=== PATIENT | female | born 1950 | race American Indian/Alaskan Native ===

== ENCOUNTER 2017-02-04 03:34 | Inpatient (IN) | payer MEDICARE ==
[2017-02-04] MEDS ORDERED: LASIX IV ONE (03:48)
[2017-02-04] MEDS ORDERED: DUONEB 0.5 MG-3 MG/3 ML SOLN IH ONE (03:49)
[2017-02-04] MEDS ORDERED: TRIDIL DRIP 50MG/250ML 50 MG/250 ML BOTTLE IV SCH (04:00)
[2017-02-04 04:20] LABS: Basophils % (Auto) 0.4 % (0.0-1.8); Eosinophils % (Auto) 1.4 % (0.0-4.3); Hematocrit 46.5 % (30.3-42.9); Hemoglobin 15.2 gm/dl (10.1-14.3); Mean Corpuscular HGB Conc 33 % (30-34); Mean Corpuscular Hemoglobin 27 pg (28-32); Mean Corpuscular Volume 83 fl (79-97); Red Blood Count 5.61 M/mm3 (3.65-5.03); Red Cell Distribution Width 15.2 % (13.2-15.2); White Blood Count 10.7 K/mm3 (4.5-11.0)
[2017-02-04 04:32] LABS: INR 1.03 (0.87-1.13); Partial Thromboplastin Time 31.9 Sec. (24.2-36.6)
[2017-02-04 04:34] LABS: Creatine Kinase MB 2.2 ng/mL (0.0-4.0)
[2017-02-04 04:35] LABS: Alanine Aminotransferase 16 units/L (7-56); Albumin 3.8 g/dL (3.9-5); Albumin/Globulin Ratio 1.1 %; Alkaline Phosphatase 171 units/L (35-129); Anion Gap 24 mmol/L; BUN/Creatinine Ratio 13.63; Bilirubin,Total 0.3 mg/dL (0.1-1.2); Blood Urea Nitrogen 15 mg/dL (7-17); Calcium 9.1 mg/dL (8.4-10.2); Carbon Dioxide 19 mmol/L (22-30); Chloride 100.1 mmol/L (98-107); Creatine Kinase 44 units/L (30-135); Glucose 470 mg/dL (65-100); Potassium 4.1 mmol/L (3.6-5.0); Sodium 139 mmol/L (137-145); Total Protein 7.3 g/dL (6.3-8.2)
--- NOTE | 2017-02-04 04:51 | Emergency Department Report ---
ED Shortness of Breath HPI - General Chief Complaint: Dyspnea/Respdistress Stated Complaint: DIFFICULTY IN BREATHING Time Seen by Provider: 02/04/17 03:48 Source: EMS, old records reviewed (patient had a recent admission with discharge on January 21) Mode of arrival: Stretcher Limitations: Altered Mental Status - History of Present Illness Initial Comments: 66-year-old female with a past medical history of asthma, COPD, CHF, diabetes, and hypertension presents to the hospital with acute respiratory distress. Difficulty in breathing began tonight. Patient brought in by EMS and is unable to speak and provide history of present illness. EMS reports that patient was hypoxic in the 60s at the scene with some improvement with a nebulized albuterol treatment and supplemental oxygen. Upon arrival BiPAP was initiated immediately. Patient is lethargic but is able to follow some commands. No further history of present illness develop at this time. - Related Data Home Medications Medication Instructions Recorded Confirmed Last Taken Insulin Aspart Prot/Aspart 50 units SQ TID 01/18/17 01/18/17 Unknown [Novolog Mix 70/30] Metformin HCl [Glucophage] 1,000 mg PO BID 01/18/17 01/18/17 Unknown Simvastatin [Zocor TAB] 40 mg PO QHS 01/18/17 01/18/17 01/17/17 cloNIDine [Catapres] 0.2 mg PO TID 01/18/17 01/18/17 Unknown Previous Rx's Medication Instructions Recorded Last Taken Type Furosemide [Lasix TAB] 40 mg PO QDAY #30 tablet 01/13/17 Unknown Rx Lisinopril [Zestril TAB] 2.5 mg PO QDAY #30 tablet 01/13/17 Unknown Rx Carvedilol [Coreg] 12.5 mg PO BID #60 tablet 01/21/17 Unknown Rx Potassium Chloride 10 meq PO QDAY #30 capsule.er 01/21/17 Unknown Rx guaiFENesin ER [Mucinex ER] 600 mg PO BID #20 tablet 01/21/17 Unknown Rx Allergies Allergy/AdvReac Type Severity Reaction Status Date / Time No Known Allergies Allergy Verified 01/10/17 21:41 ED Review of Systems ROS: Stated complaint: DIFFICULTY IN BREATHING Other details as noted in HPI Comment: Unobtainable due to pts medical conditions (ams, resp distress, unable to speak) ED Past Medical Hx - Past Medical History Previous Medical History?: Yes Hx Hypertension: Yes Hx Congestive Heart Failure: Yes Hx Diabetes: Yes Hx Asthma: Yes Hx COPD: Yes Additional medical history: chronic back pain - Social History Smoking Status: Current Every Day Smoker - Medications Home Medications: Home Medications Medication Instructions Recorded Confirmed Last Taken Type Furosemide [Lasix TAB] 40 mg PO QDAY #30 tablet 01/13/17 01/18/17 Unknown Rx Lisinopril [Zestril TAB] 2.5 mg PO QDAY #30 tablet 01/13/17 01/18/17 Unknown Rx Insulin Aspart Prot/Aspart 50 units SQ TID 01/18/17 01/18/17 Unknown History [Novolog Mix 70/30] Metformin HCl [Glucophage] 1,000 mg PO BID 01/18/17 01/18/17 Unknown History Simvastatin [Zocor TAB] 40 mg PO QHS 01/18/17 01/18/17 01/17/17 History cloNIDine [Catapres] 0.2 mg PO TID 01/18/17 01/18/17 Unknown History Carvedilol [Coreg] 12.5 mg PO BID #60 tablet 01/21/17 Unknown Rx Potassium Chloride 10 meq PO QDAY #30 capsule.er 01/21/17 Unknown Rx guaiFENesin ER [Mucinex ER] 600 mg PO BID #20 tablet 01/21/17 Unknown Rx ED Physical Exam - General Limitations: Altered Mental Status - Other Other exam information: General: Limited by altered mental status Head exam: Atraumatic Eyes exam: Normal appearance ENT: Moist mucous membrane Neck exam: Normal inspection Respiratory exam: Bilateral rhonchi and radial, tachypnea, accessory muscle use Cardiovascular: Regular rate and rhythm Abdomen: Soft, nondistended, and nontender, with normal bowel sounds, no rebound, or guarding Extremity: Full range of motion, significant lower extremity edema 2+ pitting Back: Normal Inspection, full range of motion, no tenderness Neurologic: Lethargic, spontaneous movement of all extremities, sensation grossly intact ED Course Vital Signs 02/04/17 02/04/17 02/04/17 03:42 03:47 03:50 Pulse Rate 118 H 110 H 112 H Pulse Rate [ Anterior Bilateral] Respiratory 30 H 34 H 41 H Rate Respiratory Rate [Anterior Bilateral] Blood Pressure 162/78 184/111 Blood Pressure [Left] O2 Sat by Pulse 86 91 89 Oximetry 02/04/17 02/04/17 02/04/17 03:59 04:00 04:07 Pulse Rate 102 H 98 H Pulse Rate [ 96 H Anterior Bilateral] Respiratory 35 H 28 H Rate Respiratory 28 H Rate [Anterior Bilateral] Blood Pressure 184/111 Blood Pressure [Left] O2 Sat by Pulse 91 91 Oximetry 02/04/17 02/04/17 02/04/17 04:10 04:13 04:20 Pulse Rate 97 H 99 H Pulse Rate [ 94 H Anterior Bilateral] Respiratory 28 H 24 Rate Respiratory 27 H Rate [Anterior Bilateral] Blood Pressure 169/93 193/72 Blood Pressure [Left] O2 Sat by Pulse 92 93 Oximetry 02/04/17 02/04/17 02/04/17 04:22 04:25 04:30 Pulse Rate 99 H 99 H Pulse Rate [ Anterior Bilateral] Respiratory 26 H 25 H Rate Respiratory Rate [Anterior Bilateral] Blood Pressure 193/72 Blood Pressure 193/72 [Left] O2 Sat by Pulse 93 93 90 Oximetry 02/04/17 02/04/17 04:40 05:04 Pulse Rate 99 H Pulse Rate [ Anterior Bilateral] Respiratory 21 Rate Respiratory Rate [Anterior Bilateral] Blood Pressure 155/86 Blood Pressure [Left] O2 Sat by Pulse 95 97 Oximetry - Reevaluation(s) Reevaluation #1: 02/04/17 04:58 BiPAP initiated upon arrival. Patient also received Lasix 80 mg, Solu-Medrol, Intal nebs. ABG ordered, Contreras placed. Nitroglycerin drip initiated to keep systolic blood pressure 150 02/04/17 04:59 - ABG Interpretation Ph: 7.289 PCO2: 53 PO2: 56 Bicarbonate: 25 Interpretation: respiratory acidosis, other (hypoxia) ED Medical Decision Making - Lab Data Result diagrams: 02/04/17 03:55 02/04/17 03:55 Lab Results 02/04/17 02/04/17 02/04/17 Range/Units 03:55 03:55 03:55 WBC 10.7 (4.5-11.0) K/mm3 RBC 5.61 H (3.65-5.03) M/mm3 Hgb 15.2 H (10.1-14.3) gm/dl Hct 46.5 H (30.3-42.9) % MCV 83 (79-97) fl MCH 27 L (28-32) pg MCHC 33 (30-34) % RDW 15.2 (13.2-15.2) % Plt Count 207 (140-440) K/mm3 Lymph % (Auto) 42.6 H (13.4-35.0) % Mcminn % (Auto) 6.4 (0.0-7.3) % Eos % (Auto) 1.4 (0.0-4.3) % Baso % (Auto) 0.4 (0.0-1.8) % Lymph # 4.5 (1.2-5.4) K/mm3 Mcminn # 0.7 (0.0-0.8) K/mm3 Eos # 0.1 (0.0-0.4) K/mm3 Baso # 0.0 (0.0-0.1) K/mm3 Seg Neutrophils % 49.2 (40.0-70.0) % Seg Neutrophils # 5.2 (1.8-7.7) K/mm3 PT 13.4 (12.2-14.9) Sec. INR 1.03 (0.87-1.13) APTT 31.9 (24.2-36.6) Sec. Sodium 139 (137-145) mmol/L Potassium 4.1 (3.6-5.0) mmol/L Chloride 100.1 (98-107) mmol/L Carbon Dioxide 19 L (22-30) mmol/L Anion Gap 24 mmol/L BUN 15 (7-17) mg/dL Creatinine 1.1 (0.7-1.2) mg/dL Estimated GFR > 60 ml/min BUN/Creatinine Ratio 13.63 % Glucose 470 H (65-100) mg/dL Calcium 9.1 (8.4-10.2) mg/dL Total Bilirubin 0.3 (0.1-1.2) mg/dL AST 16 (5-40) units/L ALT 16 (7-56) units/L Alkaline Phosphatase 171 H (35-129) units/L Total Creatine Kinase 44 (30-135) units/L CK-MB (CK-2) 2.2 (0.0-4.0) ng/mL CK-MB (CK-2) Rel Index 5.0 H (0-4) Troponin T < 0.010 (0.00-0.029) ng/mL NT-Pro-B Natriuret Pep 1209 H (0-900) pg/mL Total Protein 7.3 (6.3-8.2) g/dL Albumin 3.8 L (3.9-5) g/dL Albumin/Globulin Ratio 1.1 % - EKG Data -: EKG Interpreted by Me (sinus tach [address]-T wave abnormality) - EKG Data When compared to previous EKG there are: no significant change (compared to ) - Radiology Data Radiology results: image reviewed (chest x-ray: Significant pulmonary edema) - Medical Decision Making Patient has significant pulmonary edema requiring BiPAP support. Medications initiated. Patient required admission to the hospital. Hospitalist informed. - Differential Diagnosis pulmonary edema, COPD, pneumonia, MN, PE Critical Care Time: No Critical care attestation.: If time is entered above; I have spent that time in minutes in the direct care of this critically ill patient, excluding procedure time. ED Disposition Clinical Impression: Pulmonary edema, HTN (hypertension), COPD (chronic obstructive pulmonary disease), Hyperglycemia Disposition: OP ADMITTED IP TO THIS HOSP Is pt being admited?: Yes Condition: Stable Time of Disposition: 04:55 (Dr. Wlesh/hosp)
[2017-02-04 04:52] LABS: Platelet Count 207 K/mm3 (140-440)
[2017-02-04 05:07] LABS: ISTAT Base Excess -1; ISTAT HCO3 25.7; ISTAT PCO2 53.6 (35-45); ISTAT PH 7.289 (7.35-7.45); ISTAT PO2 56 (80-105); ISTAT SO2 84; ISTAT TCO2 27
[2017-02-04 05:07] LABS: ISTAT Base Excess 0; ISTAT HCO3 26.4; ISTAT PO2 54 (80-105); ISTAT SO2 83; ISTAT TCO2 28
[2017-02-04] MEDS ORDERED: TYLENOL PO PRN (05:36)
[2017-02-04] MEDS ORDERED: MILK OF MAGNESIA PO PRN (05:36)
[2017-02-04] MEDS ORDERED: ZOFRAN IV PRN (05:36)
[2017-02-04] MEDS ORDERED: PROVENTIL IH PRN (05:36)
[2017-02-04] MEDS ORDERED: DULCOLAX PR PRN (05:36)
--- NOTE | 2017-02-04 05:45 | History and Physical Report ---
History of Present Illness Date of examination: 02/04/17 History of present illness: 66-year-old woman with a history of hypertension, diabetes, CHF comes emergency room with complaints of shortness of breath, PND, orthopnea and increasing lower extremity edema. She was placed on BiPAP in the emergency room She states she is compliant with medication and diet. Patient denies chest pain, palpitation, shortness of breath, cough, hematochezia, dysuria, frequency, focal weakness, dysarthria, fever chills, polydipsia polyuria, hot or cold intolerance, easy bruisability, or rash or bleeding from mucosal membrane, rhinorrhea, epistaxis, earache, tinnitus, blurry vision, eye discharge, anxiety, depression. Other review of systems negative PAST SURGICAL HISTORY: Ankle SOCIAL HISTORY: Smoked one and a half packs a day, no alcohol or drugs FAMILY HISTORY: Hypertension Medications and Allergies Allergies Allergy/AdvReac Type Severity Reaction Status Date / Time No Known Allergies Allergy Verified 01/10/17 21:41 Home Medications Medication Instructions Recorded Confirmed Last Taken Type Furosemide [Lasix TAB] 40 mg PO QDAY #30 tablet 01/13/17 02/04/17 Unknown Rx Lisinopril [Zestril TAB] 2.5 mg PO QDAY #30 tablet 01/13/17 02/04/17 Unknown Rx Insulin Aspart Prot/Aspart(Nf) 50 units SQ TID 01/18/17 02/04/17 Unknown History [NovoLOG Mix 70/30 VIAL] Metformin HCl [Glucophage] 1,000 mg PO BID 01/18/17 02/04/17 Unknown History Simvastatin [Zocor TAB] 40 mg PO QHS 01/18/17 02/04/17 01/17/17 History cloNIDine [Catapres] 0.2 mg PO TID 01/18/17 02/04/17 Unknown History Carvedilol [Coreg] 12.5 mg PO BID #60 tablet 01/21/17 02/04/17 Unknown Rx Potassium Chloride 10 meq PO QDAY #30 capsule.er 01/21/17 02/04/17 Unknown Rx Active Meds: Active Medications Nitroglycerin/Dextrose (Tridil Drip 50mg/250ml) 50 mg in 250 mls @ 3 mls/hr IV TITR ARTURO; 10 MCG/MIN PRN Reason: Protocol Last Admin: 02/04/17 04:29 Dose: 10 mcg/min, 3 mls/hr Exam - Physical Exam Narrative exam: Gen. appearance: Patient lying in bed, no apparent distress HEENT: Normocephalic, atraumatic, pupils equally round and reactive to light, extraocular movement intact, and no sclericterus,. No JVD or thyromegaly or nodule,neck supple, no carotid bruit ,mucous membranes moist, no exudate or erythema Heart: S1, S2, regular rate and rhythm Lungs: crackles bilaterally, breathing comfortable Abdomen: Positive bowel sounds, nontender, nondistended, no organomegaly Extremity: No edema, cyanosis, clubbing Skin: No rash, nodules, warm, dry Neuro: Oriented 3, cranial nerves II-12 intact, speech is fluent, motor and sensory intact - Constitutional Vitals: Temp Pulse Resp BP Pulse Ox 93 H 23 126/75 98 02/04/17 05:10 02/04/17 05:10 02/04/17 05:10 02/04/17 05:10 Results - Labs CBC & Chem 7: 02/08/17 04:42 02/08/17 04:42 Labs: Abnormal lab results 02/04/17 02/04/17 02/04/17 Range/Units 03:55 03:55 04:50 RBC 5.61 H (3.65-5.03) M/mm3 Hgb 15.2 H (10.1-14.3) gm/dl Hct 46.5 H (30.3-42.9) % MCH 27 L (28-32) pg Lymph % (Auto) 42.6 H (13.4-35.0) % POC ABG pH 7.290 L (7.35-7.45) POC ABG pCO2 55.0 H (35-45) POC ABG pO2 54 L (80-105) Carbon Dioxide 19 L (22-30) mmol/L Glucose 470 H (65-100) mg/dL Alkaline Phosphatase 171 H (35-129) units/L CK-MB (CK-2) Rel Index 5.0 H (0-4) NT-Pro-B Natriuret Pep 1209 H (0-900) pg/mL Albumin 3.8 L (3.9-5) g/dL 02/04/17 Range/Units 04:57 RBC (3.65-5.03) M/mm3 Hgb (10.1-14.3) gm/dl Hct (30.3-42.9) % MCH (28-32) pg Lymph % (Auto) (13.4-35.0) % POC ABG pH 7.289 L (7.35-7.45) POC ABG pCO2 53.6 H (35-45) POC ABG pO2 56 L (80-105) Carbon Dioxide (22-30) mmol/L Glucose (65-100) mg/dL Alkaline Phosphatase (35-129) units/L CK-MB (CK-2) Rel Index (0-4) NT-Pro-B Natriuret Pep (0-900) pg/mL Albumin (3.9-5) g/dL Assessment and Plan Acute respiratory failure CHF exacerbation, probably diastolic dysfunction Hypertension Diabetes type 2 Admit to medicine Continue BiPAP Diurese with IV Lasix, check cardiac enzymes, echo Start beta loraine, JAVED inhibitor, aspirin Monitor I's and O's, daily weights, Check fingersticks initiate insulin sliding scale Continue appropriate outpatient medication, started to prophylaxis
--- NOTE | 2017-02-04 07:12 | Admit Criteria Form ---
Admission Criteria Documentation: RESPIRATORY FAILURE GRG Clinical Indications for Admission to Inpatient Care (Place 'X' for any and all applicable criteria): Hospital admission is needed for appropriate care of the patient because of acute respiratory failure or insufficiency as indicated by ANY ONE of the following(1)(2)(3)(4)(5)(6)(7)(8): [X ]I. Mechanical ventilation needed (acute invasive or noninvasive) [ X]II. Severe ventilation deficit as indicated by ANY ONE of the following (9 ) [X ]a) Respiratory acidosis (pH less than 7.32 and partial pressure of carbon dioxide greater than 40 mm Hg (5.3 kPa)) [ ]b) Partial pressure of carbon dioxide greater than 44 mm Hg (5.9 kPa ) (new) [ ]c) Airflow measurements less than 25% of predicted (eg, peak expiratory flow rate less than 100 L/minute) [ ]d) Forced vital capacity less than 15 mL/kg of ideal body weight, or 50% decrease in vital capacity from baseline [ ]III. Noncardiac pulmonary edema not resolving with rapid emergency treatment (8) [ ]IV. Severe respiratory distress as indicated by ANY ONE of the following: [ ]a) Severe tachypnea (respiratory rate greater than 30, greater than 45 for 6-month-old, greater than 60 for ) [ ]b) Severe hypoxemia (partial pressure of oxygen less than 50 mm Hg ( 6.7 kPa) on greater than 50% oxygen or partial pressure of oxygen to FIO2 ratio less than 200) [ ]c) Mental status deterioration from respiratory disease [ ]V. Airway obstruction or inadequate protection [A](10)(11) The original [employer] content created by [employer] has been revised. The portions of the content which have been revised are identified through the use of italic text or in bold, and [facility] has neither reviewed nor approved the modified material. All other unmodified content is copyright [employer]. Please see references footnoted in the original [employer] edition 2016 Admission Criteria Met: Yes
[2017-02-04 07:21] LABS: Creatine Kinase MB 2.8 ng/mL (0.0-4.0)
[2017-02-04] MEDS: LASIX IV SCH ×2 (07:30→17:30)
--- NOTE | 2017-02-04 07:53 | XRay Report ---
Single view chest: Compared to 01/18/17. History: Shortness of breath. Findings: Cardiomegaly. Trachea is midline. Interstitial diffuse densities bilaterally with mild pulmonary venous congestion. Findings more pronounced in the lower lobes. No significant interval change. Impression: Pulmonary edema/less likely pneumonia. No significant interval change.
[2017-02-04] MEDS ORDERED: GLUCOPHAGE PO SCH (08:00)
[2017-02-04] MEDS: NOVOLOG SUB-Q SCH ×4 (08:04→23:22)
[2017-02-04] MEDS: LOVENOX SUB-Q SCH (09:58)
[2017-02-04] MEDS ORDERED: NON-FORMULARY (Metformin Hcl [Glucophage] 1,000 MG) PO SCH (10:00)
[2017-02-04] MEDS: ZESTRIL PO SCH (10:00)
[2017-02-04] MEDS ORDERED: COREG PO SCH (10:00)
[2017-02-04] MEDS: COREG PO SCH ×2 (10:01→21:34)
--- NOTE | 2017-02-04 13:13 | Progress Note ---
Assessment and Plan Assessment and plan: Acute respiratory failure due to combined systolic and diastolic CHF exacerbation. Admitted to telemetry. Lasix and Coreg. Cardiology following. BiPAP. 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 On Lasix, Coreg Diabetes mellitus type 2, uncontrolled. Continue Novolin 70/30 tid. Fingerstick glucose before every meal and at bedtime Hypertension. BP stable on Coreg. Morbid obesity. Counseled her on importance of losing weight DVT prophylaxis with Lovenox Full code status History Interval history: shortness of breath, lower extremity edema Hospitalist Physical - Physical exam Narrative exam: Gen: Not in acute distress, morbidly obese Neck:supple, no JVD HEENT: Normocephalic, atraumatic Lungs:Clear to auscultation bilaterally, no rales or wheeze Heart:S1 and S2 reg, no murmurs,rubs or gallop Abdomen:soft, non tender, non distended, normal bowel sounds Ext: Bilateral lower ext edema, No clubbing or cyanosis Neuro:Awake,alert,oriented x 3. no facial asymetry, normal speech, Psych:normal mood - Constitutional Vitals: Temp Pulse Resp BP Pulse Ox 97.6 F 92 H 20 199/110 100 02/04/17 12:00 02/04/17 12:00 02/04/17 12:00 02/04/17 12:00 02/04/17 06:08 Results - Labs CBC & Chem 7: 02/06/17 07:22 02/06/17 07:22 Labs: Laboratory Last Values WBC 10.7 K/mm3 (4.5-11.0) 02/04/17 03:55 RBC 5.61 M/mm3 (3.65-5.03) H 02/04/17 03:55 Hgb 15.2 gm/dl (10.1-14.3) H 02/04/17 03:55 Hct 46.5 % (30.3-42.9) H 02/04/17 03:55 MCV 83 fl (79-97) 02/04/17 03:55 MCH 27 pg (28-32) L 02/04/17 03:55 MCHC 33 % (30-34) 02/04/17 03:55 RDW 15.2 % (13.2-15.2) 02/04/17 03:55 Plt Count 207 K/mm3 (140-440) 02/04/17 03:55 Lymph % (Auto) 42.6 % (13.4-35.0) H 02/04/17 03:55 Childress % (Auto) 6.4 % (0.0-7.3) 02/04/17 03:55 Eos % (Auto) 1.4 % (0.0-4.3) 02/04/17 03:55 Baso % (Auto) 0.4 % (0.0-1.8) 02/04/17 03:55 Lymph # 4.5 K/mm3 (1.2-5.4) 02/04/17 03:55 Childress # 0.7 K/mm3 (0.0-0.8) 02/04/17 03:55 Eos # 0.1 K/mm3 (0.0-0.4) 02/04/17 03:55 Baso # 0.0 K/mm3 (0.0-0.1) 02/04/17 03:55 Seg Neutrophils % 49.2 % (40.0-70.0) 02/04/17 03:55 Seg Neutrophils # 5.2 K/mm3 (1.8-7.7) 02/04/17 03:55 PT 13.4 Sec. (12.2-14.9) 02/04/17 03:55 INR 1.03 (0.87-1.13) 02/04/17 03:55 APTT 31.9 Sec. (24.2-36.6) 02/04/17 03:55 POC ABG pH 7.289 (7.35-7.45) L 02/04/17 04:57 POC ABG pCO2 53.6 (35-45) H 02/04/17 04:57 POC ABG pO2 56 (80-105) L 02/04/17 04:57 POC ABG HCO3 25.7 02/04/17 04:57 POC ABG Total CO2 27 02/04/17 04:57 POC ABG O2 Sat 84 02/04/17 04:57 POC ABG Base Excess -1 02/04/17 04:57 FiO2 80 % 02/04/17 04:57 Sodium 139 mmol/L (137-145) 02/04/17 03:55 Potassium 4.1 mmol/L (3.6-5.0) 02/04/17 03:55 Chloride 100.1 mmol/L (98-107) 02/04/17 03:55 Carbon Dioxide 19 mmol/L (22-30) L 02/04/17 03:55 Anion Gap 24 mmol/L 02/04/17 03:55 BUN 15 mg/dL (7-17) 02/04/17 03:55 Creatinine 1.1 mg/dL (0.7-1.2) 02/04/17 03:55 Estimated GFR > 60 ml/min 02/04/17 03:55 BUN/Creatinine Ratio 13.63 % 02/04/17 03:55 Glucose 470 mg/dL (65-100) H 02/04/17 03:55 Calcium 9.1 mg/dL (8.4-10.2) 02/04/17 03:55 Total Bilirubin 0.3 mg/dL (0.1-1.2) 02/04/17 03:55 AST 16 units/L (5-40) 02/04/17 03:55 ALT 16 units/L (7-56) 02/04/17 03:55 Alkaline Phosphatase 171 units/L (35-129) H 02/04/17 03:55 Total Creatine Kinase 44 units/L (30-135) 02/04/17 06:28 CK-MB (CK-2) 2.8 ng/mL (0.0-4.0) 02/04/17 06:28 CK-MB (CK-2) Rel Index 6.3 (0-4) H 02/04/17 06:28 Troponin T 0.015 ng/mL (0.00-0.029) 02/04/17 06:28 NT-Pro-B Natriuret Pep 1209 pg/mL (0-900) H 02/04/17 03:55 Total Protein 7.3 g/dL (6.3-8.2) 02/04/17 03:55 Albumin 3.8 g/dL (3.9-5) L 02/04/17 03:55 Albumin/Globulin Ratio 1.1 % 02/04/17 03:55
[2017-02-04 13:25] LABS: Creatine Kinase MB 3.9 ng/mL (0.0-4.0)
--- NOTE | 2017-02-04 15:21 | Consultation ---
History of Present Illness Consult date: 02/04/17 Requesting physician: SILVINO SMITH Reason for consult: dyspnea, hypoxemia History of present illness: 66 y/o female, admitted for the 3rd time in the last 30 days with the same symptoms. Patient has been evaluated by cardiology each time and has been offered cath each time that she has refused. She has been diuresed each time and discharged to home. She has never been seen by pulmonary in the hospital or as an outpatient. She has been told she has COPD but from CXR alone. She does not believe she has had PFT's. CXR here shows bilateral alveolar inflitrates, most likely consistent with pulmonary edema given elevated BNP and other diagnostic indicators. She was on bipap but has been weaned down to nasal cannula. She does not wear O2 at home. Past History Past Medical History: CAD, diabetes, hypertension, hyperlipidemia Medications and Allergies Allergies Allergy/AdvReac Type Severity Reaction Status Date / Time No Known Allergies Allergy Verified 01/10/17 21:41 Home Medications Medication Instructions Recorded Confirmed Last Taken Type Furosemide [Lasix TAB] 40 mg PO QDAY #30 tablet 01/13/17 02/04/17 Unknown Rx Lisinopril [Zestril TAB] 2.5 mg PO QDAY #30 tablet 01/13/17 02/04/17 Unknown Rx Insulin Aspart Prot/Aspart 50 units SQ TID 01/18/17 02/04/17 Unknown History [Novolog Mix 70/30] Metformin HCl [Glucophage] 1,000 mg PO BID 01/18/17 02/04/17 Unknown History Simvastatin [Zocor TAB] 40 mg PO QHS 01/18/17 02/04/17 01/17/17 History cloNIDine [Catapres] 0.2 mg PO TID 01/18/17 02/04/17 Unknown History Carvedilol [Coreg] 12.5 mg PO BID #60 tablet 01/21/17 02/04/17 Unknown Rx Potassium Chloride 10 meq PO QDAY #30 capsule.er 01/21/17 02/04/17 Unknown Rx Active Meds: Active Medications Acetaminophen (Tylenol) 650 mg PO Q4H PRN PRN Reason: Pain MILD(1-3)/Fever >100.5/WHEELER Albuterol (Proventil) 2.5 mg IH Q3HRT PRN PRN Reason: Shortness Of Breath Bisacodyl (Dulcolax) 10 mg ME QDAY PRN PRN Reason: Constipation unrelieved by MOM Carvedilol (Coreg) 12.5 mg PO BID [facility] Last Admin: 02/04/17 10:01 Dose: 12.5 mg Dextrose (D50w (25gm)) 50 ml IV PRN PRN PRN Reason: Hypoglycemia Enoxaparin Sodium (Lovenox) 40 mg SUB-Q QDAY [facility] Last Admin: 02/04/17 09:58 Dose: 40 mg Furosemide (Lasix) 40 mg IV BID@0600,1800 [facility] Last Admin: 02/04/17 07:30 Dose: 40 mg Nitroglycerin/Dextrose (Tridil Drip 50mg/250ml) 50 mg in 250 mls @ 3 mls/hr IV TITR ARTURO; 10 MCG/MIN PRN Reason: Protocol Last Admin: 02/04/17 04:29 Dose: 10 mcg/min, 3 mls/hr Insulin Aspart (Novolog) 0 units SUB-Q ACHS [facility] PRN Reason: Protocol Last Admin: 02/04/17 12:55 Dose: 1 units Insulin Human Isoph/Insulin Regular (Novolin 70/30) 50 unit SUB-Q BIDDIAB [facility] Last Admin: 02/04/17 09:56 Dose: 50 unit Lisinopril (Zestril) 2.5 mg PO QDAY [facility] Last Admin: 02/04/17 10:00 Dose: 2.5 mg Magnesium Hydroxide (Milk Of Magnesia) 30 ml PO Q4H PRN PRN Reason: Constipation Miscellaneous Medication (Insulin Aspart Prot/Aspart) 50 units SQ TID [facility] Ondansetron HCl (Zofran) 4 mg IV Q8H PRN PRN Reason: N/V unrelieved by Reglan Simvastatin (Zocor) 40 mg PO QHS [facility] Review of Systems All systems: negative Physical Examination Vital signs: Vital Signs Pulse Resp BP Pulse Ox 118 H 30 H 162/78 86 02/04/17 03:42 02/04/17 03:42 02/04/17 03:42 02/04/17 03:42 General appearance: appears uncomfortable (has a cramp) Eyes: non-icteric ENT: oropharynx moist Neck: supple Ascultation: Bilateral: rales Percussion: Bilateral: not dull Cardiovascular: regular rate and rhythm Gastrointestinal: normoactive bowel sounds Extremities: edema Musculoskeletal: no deformities normal mental status, non-focal exam mood appropriate Results - Laboratory Findings CBC and BMP: 02/04/17 03:55 02/04/17 03:55 ABG POC ABG pH 7.289 (7.35-7.45) L 02/04/17 04:57 POC ABG pCO2 53.6 (35-45) H 02/04/17 04:57 POC ABG pO2 56 (80-105) L 02/04/17 04:57 POC ABG HCO3 25.7 02/04/17 04:57 POC ABG Total CO2 27 02/04/17 04:57 POC ABG O2 Sat 84 02/04/17 04:57 PT/INR, D-dimer PT 13.4 Sec. (12.2-14.9) 02/04/17 03:55 INR 1.03 (0.87-1.13) 02/04/17 03:55 Abnormal lab findings: Abnormal Labs 02/04/17 02/04/17 06:28 12:40 CK-MB (CK-2) Rel Index 6.3 H 6.2 H - Diagnostic Findings Chest x-ray: image reviewed (as stated in HPI) Assessment and Plan 66 y/o female with suspected CAD, in need of cath, admitted with acute respiratory failure, most likely secondary to pulmonary edema from heart failure exacerbation. 1. Pulmonary dubose, this patient will continue to have respiratory failure until her underlying heart issue is addressed. Spoke with patient and family member at bedside about this. I suggested that they really consider the heart cath. 2. In regards to COPD, unsure of this diagnosis. Can follow up as an outpatient for PFT's 3. Based on ABG, should qualify for home O2 4. No further recommendations from a pulmonary standpoint, will sign off for now. Call if questions.
--- NOTE | 2017-02-04 17:48 | Consultation ---
History of Present Illness Consult date: 02/04/17 Consult reason: congestive heart failure History of present illness: 68 year old female presenting with shortness of breath. This is her 3rd admission this month. CXR is showing pulmonary edema. Patient admits non- compliance with fluid restrictions. Past History Past Medical History: CAD, diabetes, hypertension, hyperlipidemia Medications and Allergies Allergies Allergy/AdvReac Type Severity Reaction Status Date / Time No Known Allergies Allergy Verified 01/10/17 21:41 Home Medications Medication Instructions Recorded Confirmed Last Taken Type Furosemide [Lasix TAB] 40 mg PO QDAY #30 tablet 01/13/17 02/04/17 Unknown Rx Lisinopril [Zestril TAB] 2.5 mg PO QDAY #30 tablet 01/13/17 02/04/17 Unknown Rx Insulin Aspart Prot/Aspart 50 units SQ TID 01/18/17 02/04/17 Unknown History [Novolog Mix 70/30] Metformin HCl [Glucophage] 1,000 mg PO BID 01/18/17 02/04/17 Unknown History Simvastatin [Zocor TAB] 40 mg PO QHS 01/18/17 02/04/17 01/17/17 History cloNIDine [Catapres] 0.2 mg PO TID 01/18/17 02/04/17 Unknown History Carvedilol [Coreg] 12.5 mg PO BID #60 tablet 01/21/17 02/04/17 Unknown Rx Potassium Chloride 10 meq PO QDAY #30 capsule.er 01/21/17 02/04/17 Unknown Rx Active Meds: Active Medications Acetaminophen (Tylenol) 650 mg PO Q4H PRN PRN Reason: Pain MILD(1-3)/Fever >100.5/WHEELER Albuterol (Proventil) 2.5 mg IH Q3HRT PRN PRN Reason: Shortness Of Breath Bisacodyl (Dulcolax) 10 mg [place] QDAY PRN PRN Reason: Constipation unrelieved by MOM Carvedilol (Coreg) 12.5 mg PO BID [facility] Last Admin: 02/04/17 10:01 Dose: 12.5 mg Dextrose (D50w (25gm)) 50 ml IV PRN PRN PRN Reason: Hypoglycemia Enoxaparin Sodium (Lovenox) 40 mg SUB-Q QDAY [facility] Last Admin: 02/04/17 09:58 Dose: 40 mg Furosemide (Lasix) 40 mg IV BID@0600,1800 [facility] Last Admin: 02/04/17 17:30 Dose: 40 mg Nitroglycerin/Dextrose (Tridil Drip 50mg/250ml) 50 mg in 250 mls @ 3 mls/hr IV TITR ARTURO; 10 MCG/MIN PRN Reason: Protocol Last Admin: 02/04/17 04:29 Dose: 10 mcg/min, 3 mls/hr Insulin Aspart (Novolog) 0 units SUB-Q ACHS ARTURO PRN Reason: Protocol Last Admin: 02/04/17 17:34 Dose: 3 units Insulin Human Isoph/Insulin Regular (Novolin 70/30) 50 unit SUB-Q BIDDIAB [facility] Last Admin: 02/04/17 17:34 Dose: 50 unit Lisinopril (Zestril) 2.5 mg PO QDAY [facility] Last Admin: 02/04/17 10:00 Dose: 2.5 mg Magnesium Hydroxide (Milk Of Magnesia) 30 ml PO Q4H PRN PRN Reason: Constipation Miscellaneous Medication (Insulin Aspart Prot/Aspart) 50 units SQ TID [facility] Ondansetron HCl (Zofran) 4 mg IV Q8H PRN PRN Reason: N/V unrelieved by Reglan Simvastatin (Zocor) 40 mg PO QHS [facility] Review of Systems All systems: negative Physical Examination Vital Signs Pulse Resp BP Pulse Ox 118 H 30 H 162/78 86 02/04/17 03:42 02/04/17 03:42 02/04/17 03:42 02/04/17 03:42 General appearance: no acute distress HEENT: Positive: PERRL Neck: Positive: JVD/HJR Cardiac: Positive: Reg Rate and Rhythm Lungs: Positive: Decreased Breath Sounds Extremities: Present: edema Results 02/04/17 03:55 02/04/17 03:55 Cardiac Enzymes 02/04/17 02/04/17 Range/Units 06:28 12:40 CK-MB (CK-2) 2.8 3.9 (0.0-4.0) ng/mL Assessment and Plan 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 Patient continues to decline cardiac cath Hypertension Diabetes Obese Recommendations: Continue current medical therapy with diuresis and afterload reduction Although this is her 3rd admission this month, patient continues to decline cardiac cath. Discussed with
[2017-02-04] MEDS: ZOCOR PO SCH (21:34)
[2017-02-05 05:08] LABS: Basophils % (Auto) 0.2 % (0.0-1.8); Eosinophils % (Auto) 0.2 % (0.0-4.3); Hemoglobin 12.7 gm/dl (10.1-14.3); Mean Corpuscular HGB Conc 33 % (30-34); Mean Corpuscular Hemoglobin 26 pg (28-32); Red Blood Count 4.83 M/mm3 (3.65-5.03); White Blood Count 12.6 K/mm3 (4.5-11.0)
[2017-02-05 05:25] LABS: Blood Urea Nitrogen 22 mg/dL (7-17); Calcium 9.5 mg/dL (8.4-10.2); Carbon Dioxide 27 mmol/L (22-30); Potassium 3.4 mmol/L (3.6-5.0); Sodium 145 mmol/L (137-145)
[2017-02-05 05:56] LABS: Anion Gap 17 mmol/L
[2017-02-05 05:58] LABS: Glucose 37 mg/dL (65-100)
[2017-02-05] MEDS: D50W (25GM) IV PRN ×2 (06:07→06:38)
[2017-02-05 06:09] LABS: Hematocrit 41.5 % (30.3-42.9); Mean Corpuscular Volume 81 fl (79-97); Platelet Count 184 K/mm3 (140-440)
[2017-02-05] MEDS: LASIX IV SCH ×2 (07:38→17:08)
[2017-02-05] MEDS: NOVOLOG SUB-Q SCH ×4 (07:39→21:56)
[2017-02-05] MEDS: [UNRECOGNIZED DRUG - OTHER] SQ SCH ×2 (07:41→07:42)
[2017-02-05] MEDS: INSULIN ASPART PROTAMINE SQ SCH ×2 (07:41→07:42)
[2017-02-05] MEDS: ZESTRIL PO SCH (10:24)
[2017-02-05] MEDS: LOVENOX SUB-Q SCH (10:24)
[2017-02-05] MEDS: COREG PO SCH ×2 (10:24→21:56)
--- NOTE | 2017-02-05 11:23 | Progress Note ---
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 Patient continues to decline cardiac cath Hypertension Diabetes Obese Recommendations: Continue current medical therapy with diuresis and afterload reduction Pt refuses cardiac cath Objective Vital Signs Temp Pulse Pulse Resp BP Pulse Ox 02/05/17 07:30 97.3 F L 68 20 133/77 93 02/05/17 04:00 98.0 F 84 18 154/82 96 02/05/17 00:00 98.3 F 91 H 18 130/63 97 02/04/17 20:25 91 H 02/04/17 20:00 98.1 F 87 18 136/64 98 02/04/17 16:00 98 F 95 H 20 153/86 100 02/04/17 12:00 97.6 F 92 H 20 199/110 - Physical Examination General: No Apparent Distress HEENT: Positive: PERRL Neck: Positive: JVD/HJR Cardiac: Positive: Reg Rate and Rhythm, S1/S2 Lungs: Positive: Decreased Breath Sounds Extremities: Present: edema - Labs and Meds Cardiac Enzymes 02/04/17 Range/Units 12:40 CK-MB (CK-2) 3.9 (0.0-4.0) ng/mL CBC 02/05/17 Range/Units 04:02 WBC 12.6 H (4.5-11.0) K/mm3 RBC 4.83 (3.65-5.03) M/mm3 Hgb 12.7 (10.1-14.3) gm/dl Hct 41.5 (30.3-42.9) % Plt Count 184 (140-440) K/mm3 Lymph # 2.3 (1.2-5.4) K/mm3 [place] # 1.0 H (0.0-0.8) K/mm3 Eos # 0.0 (0.0-0.4) K/mm3 Baso # 0.0 (0.0-0.1) K/mm3 Comprehensive Metabolic Panel 02/05/17 Range/Units 04:02 Sodium 145 (137-145) mmol/L Potassium 3.4 L (3.6-5.0) mmol/L Chloride 104.0 (98-107) mmol/L Carbon Dioxide 27 D (22-30) mmol/L BUN 22 H (7-17) mg/dL Creatinine 1.0 (0.7-1.2) mg/dL Glucose 37 L* (65-100) mg/dL Calcium 9.5 (8.4-10.2) mg/dL
--- NOTE | 2017-02-05 13:04 | Progress Note ---
Assessment and Plan Assessment and plan: Acute respiratory failure due to combined systolic and diastolic CHF exacerbation. Admitted to telemetry. Lasix and Coreg. Cardiology following. BiPAP. 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 On Lasix, Coreg. Cardiology recommends cardiac cath but patient is refusing, Diabetes mellitus type 2. Episode of hypoglycemia with glucose of 37 this morning. We'll decrease Novolin 70/30 to BID instead of tid she was taking at home. Fingerstick glucose before every meal and at bedtime Hypertension. BP stable on Coreg. Morbid obesity. Counseled her on importance of losing weight DVT prophylaxis with Lovenox Full code status History Interval history: shortness of breath, lower extremity edema, hypoglycemia episode Hospitalist Physical - Physical exam Narrative exam: Gen: Not in acute distress, morbidly obese Neck:supple, HEENT: Normocephalic, atraumatic Lungs:Clear to auscultation bilaterally, no rales or wheeze Heart:S1 and S2 reg, no murmurs,rubs or gallop Abdomen:soft, non tender, non distended, normal bowel sounds Ext: Bilateral lower ext edema, No clubbing or cyanosis Neuro:Awake,alert,oriented x 3. no facial asymmetry, normal speech, Psych:normal mood - Constitutional Vitals: Temp Pulse Resp BP Pulse Ox 97.3 F L 74 20 133/77 98 02/05/17 07:30 02/05/17 07:39 02/05/17 07:30 02/05/17 07:30 02/05/17 09:00 General appearance: Present: no acute distress Results - Labs CBC & Chem 7: 02/06/17 07:22 02/06/17 07:22 Labs: Laboratory Last Values WBC 12.6 K/mm3 (4.5-11.0) H 02/05/17 04:02 RBC 4.83 M/mm3 (3.65-5.03) 02/05/17 04:02 Hgb 12.7 gm/dl (10.1-14.3) 02/05/17 04:02 Hct 41.5 % (30.3-42.9) 02/05/17 04:02 MCV 81 fl (79-97) 02/05/17 04:02 MCH 26 pg (28-32) L 02/05/17 04:02 MCHC 33 % (30-34) 02/05/17 04:02 RDW 15.0 % (13.2-15.2) 02/05/17 04:02 Plt Count 184 K/mm3 (140-440) 02/05/17 04:02 Lymph % (Auto) 18.0 % (13.4-35.0) 02/05/17 04:02 [place] % (Auto) 8.3 % (0.0-7.3) H 02/05/17 04:02 Eos % (Auto) 0.2 % (0.0-4.3) 02/05/17 04:02 Baso % (Auto) 0.2 % (0.0-1.8) 02/05/17 04:02 Lymph # 2.3 K/mm3 (1.2-5.4) 02/05/17 04:02 [place] # 1.0 K/mm3 (0.0-0.8) H 02/05/17 04:02 Eos # 0.0 K/mm3 (0.0-0.4) 02/05/17 04:02 Baso # 0.0 K/mm3 (0.0-0.1) 02/05/17 04:02 Seg Neutrophils % 73.3 % (40.0-70.0) H 02/05/17 04:02 Seg Neutrophils # 9.3 K/mm3 (1.8-7.7) H 02/05/17 04:02 PT 13.4 Sec. (12.2-14.9) 02/04/17 03:55 INR 1.03 (0.87-1.13) 02/04/17 03:55 APTT 31.9 Sec. (24.2-36.6) 02/04/17 03:55 POC ABG pH 7.289 (7.35-7.45) L 02/04/17 04:57 POC ABG pCO2 53.6 (35-45) H 02/04/17 04:57 POC ABG pO2 56 (80-105) L 02/04/17 04:57 POC ABG HCO3 25.7 02/04/17 04:57 POC ABG Total CO2 27 02/04/17 04:57 POC ABG O2 Sat 84 02/04/17 04:57 POC ABG Base Excess -1 02/04/17 04:57 FiO2 80 % 02/04/17 04:57 Sodium 145 mmol/L (137-145) 02/05/17 04:02 Potassium 3.4 mmol/L (3.6-5.0) L 02/05/17 04:02 Chloride 104.0 mmol/L (98-107) 02/05/17 04:02 Carbon Dioxide 27 mmol/L (22-30) D 02/05/17 04:02 Anion Gap 17 mmol/L 02/05/17 04:02 BUN 22 mg/dL (7-17) H 02/05/17 04:02 Creatinine 1.0 mg/dL (0.7-1.2) 02/05/17 04:02 Estimated GFR > 60 ml/min 02/05/17 04:02 BUN/Creatinine Ratio 22.00 % 02/05/17 04:02 Glucose 37 mg/dL (65-100) L* 02/05/17 04:02 POC Glucose 194 (70-105) H 02/05/17 11:53 Calcium 9.5 mg/dL (8.4-10.2) 02/05/17 04:02 Total Bilirubin 0.3 mg/dL (0.1-1.2) 02/04/17 03:55 AST 16 units/L (5-40) 02/04/17 03:55 ALT 16 units/L (7-56) 02/04/17 03:55 Alkaline Phosphatase 171 units/L (35-129) H 02/04/17 03:55 Total Creatine Kinase 62 units/L (30-135) 02/04/17 12:40 CK-MB (CK-2) 3.9 ng/mL (0.0-4.0) 02/04/17 12:40 CK-MB (CK-2) Rel Index 6.2 (0-4) H 02/04/17 12:40 Troponin T 0.013 ng/mL (0.00-0.029) 02/04/17 12:40 NT-Pro-B Natriuret Pep 1209 pg/mL (0-900) H 02/04/17 03:55 Total Protein 7.3 g/dL (6.3-8.2) 02/04/17 03:55 Albumin 3.8 g/dL (3.9-5) L 02/04/17 03:55 Albumin/Globulin Ratio 1.1 % 02/04/17 03:55
--- NOTE | 2017-02-05 14:13 | Progress Note ---
Assessment and Plan 66 y/o female with suspected CAD, in need of cath, admitted with acute respiratory failure, most likely secondary to pulmonary edema from heart failure exacerbation. No NEW Recs and no further recommendations. Signing off. 1. Pulmonary dubose, this patient will continue to have respiratory failure until her underlying heart issue is addressed. Spoke with patient and family member at bedside about this. I suggested that they really consider the heart cath. 2. In regards to COPD, unsure of this diagnosis. Can follow up as an outpatient for PFT's 3. Based on ABG, should qualify for home O2 4. No further recommendations from a pulmonary standpoint, will sign off for now. Call if questions. Subjective Date of service: 02/05/17 Interval history: No acute events. Stable on 2 liters NC. Per cards, still refusing cath Objective Vital Signs - 12hr 02/05/17 02/05/17 02/05/17 04:00 07:30 07:39 Temperature 98.0 F 97.3 F L Pulse Rate 74 Pulse Rate [ 84 68 Left] Respiratory 18 20 Rate Blood Pressure 154/82 133/77 [Left Arm] O2 Sat by Pulse 96 93 Oximetry 02/05/17 09:00 Temperature Pulse Rate Pulse Rate [ Left] Respiratory Rate Blood Pressure [Left Arm] O2 Sat by Pulse 98 Oximetry Constitutional: appears uncomfortable (has a cramp) Eyes: non-icteric ENT: oropharynx moist Neck: supple Ascultation: Bilateral: rales Percussion: Bilateral: not dull Cardiovascular: regular rate and rhythm Gastrointestinal: normoactive bowel sounds Extremities: edema Neurologic: normal mental status, non-focal exam Psychiatric: mood appropriate CBC and BMP: 02/05/17 04:02 02/05/17 04:02 ABG, PT/INR, D-dimer: ABG POC ABG pH 7.289 (7.35-7.45) L 02/04/17 04:57 POC ABG pCO2 53.6 (35-45) H 02/04/17 04:57 POC ABG pO2 56 (80-105) L 02/04/17 04:57 POC ABG HCO3 25.7 02/04/17 04:57 POC ABG Total CO2 27 02/04/17 04:57 POC ABG O2 Sat 84 02/04/17 04:57 PT/INR, D-dimer PT 13.4 Sec. (12.2-14.9) 02/04/17 03:55 INR 1.03 (0.87-1.13) 02/04/17 03:55 Abnormal lab findings: Abnormal Labs 02/04/17 02/04/17 02/04/17 06:28 12:40 16:38 WBC MCH [place] % (Auto) [place] # Seg Neutrophils % Seg Neutrophils # Potassium BUN Glucose POC Glucose 249 H CK-MB (CK-2) Rel Index 6.3 H 6.2 H 02/04/17 02/05/17 02/05/17 22:47 04:02 04:02 WBC 12.6 H MCH 26 L [place] % (Auto) 8.3 H [place] # 1.0 H Seg Neutrophils % 73.3 H Seg Neutrophils # 9.3 H Potassium 3.4 L BUN 22 H Glucose 37 L* POC Glucose 106 H CK-MB (CK-2) Rel Index 02/05/17 02/05/17 07:34 11:53 WBC MCH [place] % (Auto) [place] # Seg Neutrophils % Seg Neutrophils # Potassium BUN Glucose POC Glucose 115 H 194 H CK-MB (CK-2) Rel Index
[2017-02-05] MEDS: ZOCOR PO SCH (21:56)
[2017-02-06] MEDS: LASIX IV SCH ×3 (05:58→17:03)
[2017-02-06 08:23] LABS: Hematocrit 38.3 % (30.3-42.9); Hemoglobin 12.9 gm/dl (10.1-14.3); Mean Corpuscular HGB Conc 34 % (30-34); Mean Corpuscular Hemoglobin 27 pg (28-32); Mean Corpuscular Volume 79 fl (79-97); Platelet Count 157 K/mm3 (140-440); Red Blood Count 4.83 M/mm3 (3.65-5.03); Red Cell Distribution Width 14.6 % (13.2-15.2); White Blood Count 9.5 K/mm3 (4.5-11.0)
[2017-02-06] MEDS: NOVOLOG SUB-Q SCH ×3 (08:36→17:02)
[2017-02-06 08:51] LABS: Anion Gap 19 mmol/L; Blood Urea Nitrogen 21 mg/dL (7-17); Calcium 8.9 mg/dL (8.4-10.2); Carbon Dioxide 26 mmol/L (22-30); Chloride 99.1 mmol/L (98-107); Glucose 421 mg/dL (65-100); Potassium 4.4 mmol/L (3.6-5.0); Sodium 140 mmol/L (137-145)
--- NOTE | 2017-02-06 10:59 | Progress Note ---
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 Patient continues to decline cardiac cath Hypertension Diabetes Obese Recommendations: Continue current medical therapy with diuresis and afterload reduction Pt refuses cardiac cath Objective Vital Signs Temp Pulse Pulse Pulse Resp BP Pulse Ox 02/06/17 08:30 98.1 F 84 84 H 161/78 2 L 02/06/17 08:11 18 92 02/06/17 08:00 80 02/06/17 05:53 98.5 F 78 18 150/65 97 02/06/17 00:04 97.7 F 79 18 138/62 100 02/05/17 22:53 81 16 100 02/05/17 22:21 90 02/05/17 20:47 22 02/05/17 20:15 88 02/05/17 19:53 98.2 F 90 18 139/79 94 02/05/17 16:55 98.4 F 78 24 161/78 96 - Physical Examination General: No Apparent Distress HEENT: Positive: PERRL Neck: Positive: JVD/HJR Cardiac: Positive: Reg Rate and Rhythm, S1/S2 Lungs: Positive: Normal Exam Abdomen: Positive: Soft Extremities: Present: edema - Labs and Meds CBC 02/06/17 Range/Units 07:22 WBC 9.5 (4.5-11.0) K/mm3 RBC 4.83 (3.65-5.03) M/mm3 Hgb 12.9 (10.1-14.3) gm/dl Hct 38.3 (30.3-42.9) % Plt Count 157 (140-440) K/mm3 Comprehensive Metabolic Panel 02/06/17 Range/Units 07:22 Sodium 140 (137-145) mmol/L Potassium 4.4 D (3.6-5.0) mmol/L Chloride 99.1 (98-107) mmol/L Carbon Dioxide 26 (22-30) mmol/L BUN 21 H (7-17) mg/dL Creatinine 1.0 (0.7-1.2) mg/dL Glucose 421 H (65-100) mg/dL Calcium 8.9 (8.4-10.2) mg/dL
[2017-02-06] MEDS: COREG PO SCH ×2 (11:02→21:16)
[2017-02-06] MEDS: LOVENOX SUB-Q SCH (11:02)
[2017-02-06] MEDS: ZESTRIL PO SCH (11:03)
[2017-02-06] MEDS: ZOCOR PO SCH (21:17)
[2017-02-07] MEDS: LASIX IV SCH ×2 (05:36→18:00)
[2017-02-07] MEDS: NOVOLOG SUB-Q SCH ×5 (07:30→22:26)
--- NOTE | 2017-02-07 08:53 | Progress Note ---
Assessment and Plan Assessment and plan: Acute respiratory failure due to combined systolic and diastolic CHF exacerbation. Admitted to telemetry. Lasix and Coreg. Cardiology following. BiPAP prn. Pulmonology following. She feels better Acute on chronic combined systolic and diastolic CHF exacerbation. On Lasix, Coreg. Cardiology recommends cardiac cath but patient refused. I discussed with patient again and she has now agreed for cardiac cath tomorrow. Diabetes mellitus type 2. Cont Novolin 70/30 BID instead of tid she was taking at home. Fingerstick glucose before every meal and at bedtime. She had an episode of hypoglycemia yesterday. Hypertension. BP stable on Coreg. Morbid obesity. Counseled her on importance of losing weight DVT prophylaxis with Lovenox Full code status History Interval history: shortness of breath, lower extremity edema, Hospitalist Physical - Physical exam Narrative exam: Gen: Not in acute distress, morbidly obese Neck:supple, HEENT: Normocephalic, atraumatic Lungs:Clear to auscultation bilaterally, no rales or wheeze Heart:S1 and S2 reg, no murmurs,rubs or gallop Abdomen:soft, non tender, non distended, normal bowel sounds Ext: Less edema, No clubbing or cyanosis Neuro: Awake,alert,oriented x 3. no facial asymmetry, normal speech, Psych: normal mood - Constitutional Vitals: Temp Pulse Resp BP Pulse Ox 98.2 F 74 20 128/64 97 02/07/17 05:06 02/07/17 05:06 02/07/17 05:06 02/07/17 05:06 02/07/17 08:47 General appearance: Present: no acute distress Results - Labs CBC & Chem 7: 02/06/17 07:22 02/06/17 07:22 Labs: Laboratory Last Values WBC 9.5 K/mm3 (4.5-11.0) 02/06/17 07:22 RBC 4.83 M/mm3 (3.65-5.03) 02/06/17 07:22 Hgb 12.9 gm/dl (10.1-14.3) 02/06/17 07:22 Hct 38.3 % (30.3-42.9) 02/06/17 07:22 MCV 79 fl (79-97) 02/06/17 07:22 MCH 27 pg (28-32) L 02/06/17 07:22 MCHC 34 % (30-34) 02/06/17 07:22 RDW 14.6 % (13.2-15.2) 02/06/17 07:22 Plt Count 157 K/mm3 (140-440) 02/06/17 07:22 Lymph % (Auto) 18.0 % (13.4-35.0) 02/05/17 04:02 [place] % (Auto) 8.3 % (0.0-7.3) H 02/05/17 04:02 Eos % (Auto) 0.2 % (0.0-4.3) 02/05/17 04:02 Baso % (Auto) 0.2 % (0.0-1.8) 02/05/17 04:02 Lymph # 2.3 K/mm3 (1.2-5.4) 02/05/17 04:02 [place] # 1.0 K/mm3 (0.0-0.8) H 02/05/17 04:02 Eos # 0.0 K/mm3 (0.0-0.4) 02/05/17 04:02 Baso # 0.0 K/mm3 (0.0-0.1) 02/05/17 04:02 Seg Neutrophils % 73.3 % (40.0-70.0) H 02/05/17 04:02 Seg Neutrophils # 9.3 K/mm3 (1.8-7.7) H 02/05/17 04:02 PT 13.4 Sec. (12.2-14.9) 02/04/17 03:55 INR 1.03 (0.87-1.13) 02/04/17 03:55 APTT 31.9 Sec. (24.2-36.6) 02/04/17 03:55 POC ABG pH 7.289 (7.35-7.45) L 02/04/17 04:57 POC ABG pCO2 53.6 (35-45) H 02/04/17 04:57 POC ABG pO2 56 (80-105) L 02/04/17 04:57 POC ABG HCO3 25.7 02/04/17 04:57 POC ABG Total CO2 27 02/04/17 04:57 POC ABG O2 Sat 84 02/04/17 04:57 POC ABG Base Excess -1 02/04/17 04:57 FiO2 80 % 02/04/17 04:57 Sodium 140 mmol/L (137-145) 02/06/17 07:22 Potassium 4.4 mmol/L (3.6-5.0) D 02/06/17 07:22 Chloride 99.1 mmol/L (98-107) 02/06/17 07:22 Carbon Dioxide 26 mmol/L (22-30) 02/06/17 07:22 Anion Gap 19 mmol/L 02/06/17 07:22 BUN 21 mg/dL (7-17) H 02/06/17 07:22 Creatinine 1.0 mg/dL (0.7-1.2) 02/06/17 07:22 Estimated GFR > 60 ml/min 02/06/17 07:22 BUN/Creatinine Ratio 21.00 % 02/06/17 07:22 Glucose 421 mg/dL (65-100) H 02/06/17 07:22 POC Glucose 212 (70-105) H 02/06/17 21:11 Calcium 8.9 mg/dL (8.4-10.2) 02/06/17 07:22 Total Bilirubin 0.3 mg/dL (0.1-1.2) 02/04/17 03:55 AST 16 units/L (5-40) 02/04/17 03:55 ALT 16 units/L (7-56) 02/04/17 03:55 Alkaline Phosphatase 171 units/L (35-129) H 02/04/17 03:55 Total Creatine Kinase 62 units/L (30-135) 02/04/17 12:40 CK-MB (CK-2) 3.9 ng/mL (0.0-4.0) 02/04/17 12:40 CK-MB (CK-2) Rel Index 6.2 (0-4) H 02/04/17 12:40 Troponin T 0.013 ng/mL (0.00-0.029) 02/04/17 12:40 NT-Pro-B Natriuret Pep 1209 pg/mL (0-900) H 02/04/17 03:55 Total Protein 7.3 g/dL (6.3-8.2) 02/04/17 03:55 Albumin 3.8 g/dL (3.9-5) L 02/04/17 03:55 Albumin/Globulin Ratio 1.1 % 02/04/17 03:55
[2017-02-07] MEDS: LOVENOX SUB-Q SCH (11:39)
[2017-02-07] MEDS: COREG PO SCH ×2 (11:40→22:26)
[2017-02-07] MEDS: ZESTRIL PO SCH (11:40)
--- NOTE | 2017-02-07 13:12 | Progress Note ---
Assessment and Plan Assessment and plan: Acute respiratory failure due to combined systolic and diastolic CHF exacerbation. Admitted to telemetry. Continue Lasix and Coreg. Cardiology following. BiPAP prn. Pulmonology following. She feels better Acute on chronic combined systolic and diastolic CHF exacerbation. On Lasix, Coreg. Cardiology recommends cardiac cath but initially patient refused. I discussed with patient again and she has now agreed for cardiac cath. I discussed with Nurse and recommend she informs patient relations representative. Diabetes mellitus type 2. Cont Novolin 70/30 BID instead of tid she was taking at home. Fingerstick glucose before every meal and at bedtime. She had an episode of hypoglycemia 2 days ago. Hypertension. BP stable on Coreg. Morbid obesity. Counseled her on importance of losing weight DVT prophylaxis with Lovenox Full code status History Interval history: shortness of breath, lower extremity edema, Has now agreed to proceed with cardiac catheterization Hospitalist Physical - Physical exam Narrative exam: Gen: Not in acute distress, morbidly obese Neck:supple, HEENT: Normocephalic, atraumatic Lungs:Clear to auscultation bilaterally, no rales or wheeze Heart:S1 and S2 reg, no murmurs,rubs or gallop Abdomen:soft, non tender, non distended, normal bowel sounds Ext: Less edema, No clubbing or cyanosis Neuro: Awake,alert,oriented x 3. no facial asymmetry, normal speech, Psych: normal mood - Constitutional Vitals: Temp Pulse Resp BP Pulse Ox 97.8 F 76 18 140/85 99 02/07/17 09:00 02/07/17 09:00 02/07/17 09:00 02/07/17 09:00 02/07/17 09:00 General appearance: Present: no acute distress Results - Labs CBC & Chem 7: 02/06/17 07:22 02/06/17 07:22 Labs: Laboratory Last Values WBC 9.5 K/mm3 (4.5-11.0) 02/06/17 07:22 RBC 4.83 M/mm3 (3.65-5.03) 02/06/17 07:22 Hgb 12.9 gm/dl (10.1-14.3) 02/06/17 07:22 Hct 38.3 % (30.3-42.9) 02/06/17 07:22 MCV 79 fl (79-97) 02/06/17 07:22 MCH 27 pg (28-32) L 02/06/17 07:22 MCHC 34 % (30-34) 02/06/17 07:22 RDW 14.6 % (13.2-15.2) 02/06/17 07:22 Plt Count 157 K/mm3 (140-440) 02/06/17 07:22 Lymph % (Auto) 18.0 % (13.4-35.0) 02/05/17 04:02 [place] % (Auto) 8.3 % (0.0-7.3) H 02/05/17 04:02 Eos % (Auto) 0.2 % (0.0-4.3) 02/05/17 04:02 Baso % (Auto) 0.2 % (0.0-1.8) 02/05/17 04:02 Lymph # 2.3 K/mm3 (1.2-5.4) 02/05/17 04:02 [place] # 1.0 K/mm3 (0.0-0.8) H 02/05/17 04:02 Eos # 0.0 K/mm3 (0.0-0.4) 02/05/17 04:02 Baso # 0.0 K/mm3 (0.0-0.1) 02/05/17 04:02 Seg Neutrophils % 73.3 % (40.0-70.0) H 02/05/17 04:02 Seg Neutrophils # 9.3 K/mm3 (1.8-7.7) H 02/05/17 04:02 PT 13.4 Sec. (12.2-14.9) 02/04/17 03:55 INR 1.03 (0.87-1.13) 02/04/17 03:55 APTT 31.9 Sec. (24.2-36.6) 02/04/17 03:55 POC ABG pH 7.289 (7.35-7.45) L 02/04/17 04:57 POC ABG pCO2 53.6 (35-45) H 02/04/17 04:57 POC ABG pO2 56 (80-105) L 02/04/17 04:57 POC ABG HCO3 25.7 02/04/17 04:57 POC ABG Total CO2 27 02/04/17 04:57 POC ABG O2 Sat 84 02/04/17 04:57 POC ABG Base Excess -1 02/04/17 04:57 FiO2 80 % 02/04/17 04:57 Sodium 140 mmol/L (137-145) 02/06/17 07:22 Potassium 4.4 mmol/L (3.6-5.0) D 02/06/17 07:22 Chloride 99.1 mmol/L (98-107) 02/06/17 07:22 Carbon Dioxide 26 mmol/L (22-30) 02/06/17 07:22 Anion Gap 19 mmol/L 02/06/17 07:22 BUN 21 mg/dL (7-17) H 02/06/17 07:22 Creatinine 1.0 mg/dL (0.7-1.2) 02/06/17 07:22 Estimated GFR > 60 ml/min 02/06/17 07:22 BUN/Creatinine Ratio 21.00 % 02/06/17 07:22 Glucose 421 mg/dL (65-100) H 02/06/17 07:22 POC Glucose 302 (70-105) H 02/07/17 11:35 Calcium 8.9 mg/dL (8.4-10.2) 02/06/17 07:22 Total Bilirubin 0.3 mg/dL (0.1-1.2) 02/04/17 03:55 AST 16 units/L (5-40) 02/04/17 03:55 ALT 16 units/L (7-56) 02/04/17 03:55 Alkaline Phosphatase 171 units/L (35-129) H 02/04/17 03:55 Total Creatine Kinase 62 units/L (30-135) 02/04/17 12:40 CK-MB (CK-2) 3.9 ng/mL (0.0-4.0) 02/04/17 12:40 CK-MB (CK-2) Rel Index 6.2 (0-4) H 02/04/17 12:40 Troponin T 0.013 ng/mL (0.00-0.029) 02/04/17 12:40 NT-Pro-B Natriuret Pep 1209 pg/mL (0-900) H 02/04/17 03:55 Total Protein 7.3 g/dL (6.3-8.2) 02/04/17 03:55 Albumin 3.8 g/dL (3.9-5) L 02/04/17 03:55 Albumin/Globulin Ratio 1.1 % 02/04/17 03:55
--- NOTE | 2017-02-07 19:18 | Progress Note ---
Assessment and Plan - Patient Problems (1) Pulmonary edema Current Visit: Yes Status: Acute Qualifiers: Chronicity: C Plan to address problem: The patient presented with shortness of breath and chest x-ray consistent with pulmonary edema. She looks and feels better following inpatient diuretic therapy. There is a history of nonischemic cardiomyopathy, following a remote cardiac catheterization many years ago in [facility]. Echocardiogram last year demonstrated left ventricular ejection fraction of 30-35%. Despite recurrent heart failure and pulmonary edema, patient has declined further invasive cardiac evaluation with cardiac catheterization. We'll continue medical therapy and maintain a strict low-salt diet. Subjective Date of service: 02/07/17 Interval history: The patient presented with shortness of breath and chest x-ray consistent with pulmonary edema. She looks and feels better following inpatient diuretic therapy. There is a history of nonischemic cardiomyopathy, following a remote cardiac catheterization many years ago in [facility]. Echocardiogram last year demonstrated left ventricular ejection fraction of 30-35%. Despite recurrent heart failure and pulmonary edema, patient has declined further invasive cardiac evaluation with cardiac catheterization. Objective Vital Signs Temp Pulse Pulse Pulse Pulse Resp BP 02/07/17 13:00 97.9 F 77 18 02/07/17 09:00 97.8 F 76 18 02/07/17 08:47 02/07/17 05:06 98.2 F 74 20 02/07/17 00:01 97.6 F 74 18 02/06/17 22:00 85 20 02/06/17 21:16 88 123/95 02/06/17 21:10 02/06/17 20:04 98 F 85 20 02/06/17 20:00 86 BP BP Pulse Ox 02/07/17 13:00 139/82 100 02/07/17 09:00 140/85 99 02/07/17 08:47 97 02/07/17 05:06 128/64 100 02/07/17 00:01 110/64 98 02/06/17 22:00 02/06/17 21:16 02/06/17 21:10 97 02/06/17 20:04 123/95 99 02/06/17 20:00 - Physical Examination General: No Apparent Distress HEENT: Positive: PERRL Neck: Positive: neck supple, JVD/HJR Cardiac: Positive: Reg Rate and Rhythm Lungs: Positive: Decreased Breath Sounds Neuro: Positive: Grossly Intact Abdomen: Positive: Soft Skin: Positive: Clear Extremities: Present: edema (trace)
[2017-02-07] MEDS: ZOCOR PO SCH (22:26)
[2017-02-08 05:53] LABS: Basophils % (Auto) 0.5 % (0.0-1.8); Eosinophils % (Auto) 2.1 % (0.0-4.3); Hematocrit 38.8 % (30.3-42.9); Hemoglobin 13.2 gm/dl (10.1-14.3); Mean Corpuscular HGB Conc 34 % (30-34); Mean Corpuscular Hemoglobin 27 pg (28-32); Mean Corpuscular Volume 80 fl (79-97); Platelet Count 158 K/mm3 (140-440); Red Blood Count 4.88 M/mm3 (3.65-5.03); Red Cell Distribution Width 14.7 % (13.2-15.2); White Blood Count 8.1 K/mm3 (4.5-11.0)
[2017-02-08 06:03] LABS: INR 1.05 (0.87-1.13)
[2017-02-08 06:04] LABS: Partial Thromboplastin Time 30.9 Sec. (24.2-36.6)
[2017-02-08 06:13] LABS: Anion Gap 17 mmol/L; BUN/Creatinine Ratio 18.88; Blood Urea Nitrogen 17 mg/dL (7-17); Calcium 9.1 mg/dL (8.4-10.2); Carbon Dioxide 28 mmol/L (22-30); Chloride 100.5 mmol/L (98-107); Glucose 140 mg/dL (65-100); Sodium 141 mmol/L (137-145)
[2017-02-08] MEDS: LASIX IV SCH (07:08)
[2017-02-08] MEDS: NOVOLOG SUB-Q SCH ×2 (08:11→11:51)
[2017-02-08 09:54] VITALS: BP 164/82
--- NOTE | 2017-02-08 10:32 | Discharge Summary ---
Providers - Providers Date of Admission: 02/04/17 05:36 Date of discharge: 02/08/17 Attending physician: GAY GREEN MD Primary care physician: MEDICAL AUTHORIZATION SPECIALIST Hospitalization Reason for admission: Acute on Chronic systolic CHF exacerbations Condition: Stable Hospital course: Acute respiratory failure due to combined systolic and diastolic CHF exacerbation. was treated with Lasix and Coreg. BiPAP prn. Pulmonology and cardiology consult appreciated. Cardiology recommends cardiac cath but patient refused. Cardiology scheduled her to see in the clinic on february 14. Diabetes mellitus type 2. Cont Novolin 70/30. Hypertension. BP stable on Coreg. Morbid obesity. Counseled her on importance of losing weight Patient was markedly improved, no shortness of breath or chest pain at the time of discharge. Patient has on medications at home so she doesn't need any refills. Disposition: DISCHARGED TO HOME OR SELFCARE Time spent for discharge: 31 minutes - Discharge Diagnoses (1) Hyperglycemia Status: Acute (2) Pulmonary edema Status: Acute Qualifiers: Chronicity: C (3) COPD (chronic obstructive pulmonary disease) Status: Chronic Qualifiers: COPD type: C Chronic bronchitis type: C Emphysema type: E (4) HTN (hypertension) Status: Chronic Qualifiers: Hypertension type: H (5) Acute exacerbation of CHF (congestive heart failure) Status: Acute Qualifiers: Congestive heart failure type: combined Qualified Code(s): I50.43 - Acute on chronic combined systolic (congestive) and diastolic (congestive) heart failure (6) CHF (congestive heart failure) Status: Acute Qualifiers: Congestive heart failure type: unspecified congestive heart failure type Congestive heart failure chronicity: acute on chronic Qualified Code(s): I50.9 - Heart failure, unspecified (7) Hyperlipidemia Status: Chronic Qualifiers: Hyperlipidemia type: mixed hyperlipidemia Qualified Code(s): E78.2 - Mixed hyperlipidemia (8) IDDM (insulin dependent diabetes mellitus) Status: Chronic Core Measure Documentation - Palliative Care Palliative Care/ Comfort Measures: Not Applicable - Core Measures Any of the following diagnoses?: none - Heart Failure Discharge Requirements JAVED/ARB for LVSD if EF <40%: Yes Beta loraine at discharge: Yes Exam - Physical Exam Narrative exam: Not in cardiopulmonary distress. The patient appeared well nourished and normally developed. Vital signs as documented. Head exam is unremarkable. No scleral icterus . Neck is without jugular venous distension, thyromegaly, or carotid bruits. Lungs are clear to auscultation. Cardiac exam reveals regular rate and Rhythm. First and second heart sounds normal. No murmurs, rubs or gallops. Abdominal exam reveals normal bowel sounds, no masses, no organomegaly and no aortic enlargement. Extremities are nonedematous and both femoral and pedal pulses are normal. AUDIO VIDEO TECH: Alert and oriented 3. No focal weakness. - Constitutional Vitals: Temp Pulse Resp BP Pulse Ox 98.3 F 83 18 164/82 96 02/08/17 09:53 02/08/17 09:53 02/08/17 09:53 02/08/17 09:53 02/08/17 09:53 Plan Activity: no restrictions Weight Bearing Status: Full Weight Bearing Diet: low cholesterol, low salt, diabetic Follow up with: PRIMARY MD GEORGES [Primary Care Provider] - 7 Days MARIUSZ BARRETT MD [Staff Physician] - 10 Days
[2017-02-08] MEDS: LOVENOX SUB-Q SCH (11:49)
[2017-02-08] MEDS: ZESTRIL PO SCH (11:49)
[2017-02-08] MEDS: COREG PO SCH (11:49)
--- NOTE | 2017-02-08 13:03 | Progress Note ---
Assessment and Plan Acute on chronic conbined systolic and diastolic heart failure Pulmonary edema on CXR Patient and admits to non-compliance with fluid restrictions Chronic obstructive pulmonary disease Dilated Nonischemic Cardiomyopathy EF 45-50% on echo 01/2017 Hypertension Diabetes Obese Recommendations: Continue current medical therapy with diuresis and afterload reduction. Advised dietary restrictions. F/U with [facility] as scheduled February 14. Subjective Date of service: 02/08/17 Interval history: Patient reports her breathing is better. Objective Vital Signs Temp Pulse Pulse Pulse Pulse Resp Resp 02/08/17 10:00 79 18 02/08/17 09:53 98.3 F 83 18 02/08/17 09:40 02/08/17 08:00 78 02/08/17 04:35 98.4 F 77 20 02/08/17 01:19 98.1 F 76 20 02/07/17 21:23 98.3 F 87 20 02/07/17 21:00 02/07/17 20:00 65 02/07/17 17:00 98.7 F 85 18 BP BP Pulse Ox 02/08/17 10:00 99 02/08/17 09:53 164/82 96 02/08/17 09:40 99 02/08/17 08:00 02/08/17 04:35 167/79 99 02/08/17 01:19 131/60 99 02/07/17 21:23 148/67 98 02/07/17 21:00 98 02/07/17 20:00 02/07/17 17:00 154/80 100 - Physical Examination General: No Apparent Distress HEENT: Positive: PERRL Neck: Positive: trachea midline Cardiac: Positive: Reg Rate and Rhythm Lungs: Positive: Decreased Breath Sounds Extremities: Absent: edema - Labs and Meds Coagulation 02/08/17 Range/Units 04:42 PT 13.6 (12.2-14.9) Sec. INR 1.05 (0.87-1.13) APTT 30.9 (24.2-36.6) Sec. CBC 02/08/17 Range/Units 04:42 WBC 8.1 (4.5-11.0) K/mm3 RBC 4.88 (3.65-5.03) M/mm3 Hgb 13.2 (10.1-14.3) gm/dl Hct 38.8 (30.3-42.9) % Plt Count 158 (140-440) K/mm3 Lymph # 2.7 (1.2-5.4) K/mm3 [place] # 1.0 H (0.0-0.8) K/mm3 Eos # 0.2 (0.0-0.4) K/mm3 Baso # 0.0 (0.0-0.1) K/mm3 Comprehensive Metabolic Panel 02/08/17 Range/Units 04:42 Sodium 141 (137-145) mmol/L Potassium 4.0 (3.6-5.0) mmol/L Chloride 100.5 (98-107) mmol/L Carbon Dioxide 28 (22-30) mmol/L BUN 17 (7-17) mg/dL Creatinine 0.9 (0.7-1.2) mg/dL Glucose 140 H (65-100) mg/dL Calcium 9.1 (8.4-10.2) mg/dL
== END 2017-02-08 13:47 | disposition home or self-care (01) | DRG 291 ==
LOC: ED 03:34 → 4A 05:36
PROVIDERS: ADMIT Internal Medicine; ATTEND Internal Medicine
PROC: 5A09457 Assistance with Respiratory Ventilation, 24-96 Consecutive Hours, Continuous Positive Airway Pressure (ICD-10-PCS; principal; 2017-02-04)
PROC: 4A033R1 Measurement of Arterial Saturation, Peripheral, Percutaneous Approach (ICD-10-PCS; 2017-02-04)
DX: I11.0 Hypertensive heart disease with heart failure (principal); J96.00 Acute respiratory failure, unspecified whether with hypoxia or hypercapnia; J81.1 Chronic pulmonary edema; J45.909 Unspecified asthma, uncomplicated; G89.29 Other chronic pain; M54.9 Dorsalgia, unspecified; F17.200 Nicotine dependence, unspecified, uncomplicated; I50.43 Acute on chronic combined systolic (congestive) and diastolic (congestive) heart failure; E66.01 Morbid (severe) obesity due to excess calories; E11.65 Type 2 diabetes mellitus with hyperglycemia; I42.0 Dilated cardiomyopathy; J44.9 Chronic obstructive pulmonary disease, unspecified; E78.2 Mixed hyperlipidemia; Z82.49 Family history of ischemic heart disease and other diseases of the circulatory system; Z68.37 Body mass index [BMI] 37.0-37.9, adult
CPT/HCPCS: 36415; 71010; 80048; 80053; 82550; 82553; 82803; 82962; 83880; 84484; 85025; 85027; 85610; 85730; 93005; 93010; 94640; 94660; 94760; 96374; 96375; J1650; J1815; J1940; J2930

== ENCOUNTER 2017-03-13 13:54 | Inpatient (IN) | payer MEDICARE ==
[2017-03-13 14:05] LABS: Hematocrit 43.7 % (30.3-42.9); Hemoglobin 14.8 gm/dl (10.1-14.3); Mean Corpuscular HGB Conc 34 % (30-34); Mean Corpuscular Hemoglobin 27 pg (28-32); Mean Corpuscular Volume 79 fl (79-97); Platelet Count 161 K/mm3 (140-440); Red Blood Count 5.54 M/mm3 (3.65-5.03); Red Cell Distribution Width 14.4 % (13.2-15.2); White Blood Count 7.6 K/mm3 (4.5-11.0)
[2017-03-13 14:15] LABS: INR 1.05 (0.87-1.13)
[2017-03-13] MEDS ORDERED: NACL 0.9% 1000 ML 1,000 ML ONE (14:15)
[2017-03-13 14:16] LABS: Partial Thromboplastin Time 31.5 Sec. (24.2-36.6)
[2017-03-13] MEDS ORDERED: ASPIRIN PO ONE (14:24)
[2017-03-13 14:26] LABS: BUN/Creatinine Ratio 18.33; Calcium 9.6 mg/dL (8.4-10.2); Chloride 99.1 mmol/L (98-107); Potassium 4.4 mmol/L (3.6-5.0)
--- NOTE | 2017-03-13 14:26 | Cat Scan Report ---
FINAL REPORT PROCEDURE: CT HEAD/BRAIN WO CON TECHNIQUE: Computerized tomography of the head was performed without contrast material. HISTORY: neuro deficits \T\lt; 6hrs or sx present upon awakening COMPARISON: No prior studies are available for comparison. FINDINGS: Brain: There is no evidence of intracranial hemorrhage. No parenchymal hemorrhage is seen. No mass lesions or mass effect is identified. No abnormal extra-axial fluid collections or masses are seen. There is a small to moderate size old area of encephalomalacia involving the superior lateral aspect of the right parietal lobe. There appears to be an old lacunar infarct in the left side of the [place] and also in the right and left thalamus and anterior aspect of the left external capsule. There is mild asymmetry in the middle cerebral arteries, the left side is more dense than the right. I cannot exclude slow flow within the left middle cerebral artery. There is some decreased density seen in the periventricular white matter without mass effect. This is fairly symmetric and does not exhibit any mass effect consistent with gliosis probably on the basis of microvascular disease or white matter changes of aging. Ventricles: The ventricles, sulcal pattern and fissures are prominent consistent with atrophy. Bones: No evidence of acute fracture. Paranasal sinuses: clear Mastoid air cells: clear IMPRESSION: There is evidence of mild atrophy and moderate gliosis. Old lacunar infarcts visualized in the [place] also in the right and left thalamus and left external capsule. Moderate-sized old area of encephalomalacia visualized in the right parietal lobe superior laterally. Mild asymmetry in the density of the left middle cerebral arteries, the left side appears slightly more dense than the right. I cannot exclude slow flow or absent flow. Consider MRI for further evaluation. Critical value: These findings were discussed in detail with Dr. Aguirre on 02/11/2017 at 2:20 p.m. Eastern standard time
[2017-03-13] MEDS ORDERED: NACL 0.9% 1000 ML 1,000 ML IV ONE (14:29)
--- NOTE | 2017-03-13 14:56 | Emergency Department Report ---
ED Neuro Deficit HPI - General Chief Complaint: Neuro Symptoms/Deficit Stated Complaint: POSS TIA Time Seen by Provider: 03/13/17 14:21 Source: patient, EMS Mode of arrival: Stretcher Limitations: No Limitations - History of Present Illness Onset/Timin -: Sudden, hour(s) Location: speech, left face, left arm Presenting Symptoms: Present: Weak/Paralyzed One Side, Unable to Speak Clearly. Absent: Blurred/Loss of Vision, Altered Mental Status History of same: No Place: home Severity: moderate Quality: weak, numb, tingling Improves With: none Worsens With: none On Anticoagulants: No Associated Symptoms: denies: confusion, chest pain, cough, diaphoresis, fever/ chills, headaches, loss of appetite, malise, nausea/vomiting, vertigo, seizures , shortness of breath, syncope - Related Data Home Medications: Home Medications Medication Instructions Recorded Confirmed Last Taken Insulin Aspart Prot/Aspart(Nf) 50 units SQ TID 01/18/17 02/04/17 Unknown [NovoLOG Mix 70/30 VIAL] Metformin HCl [Glucophage] 1,000 mg PO BID 01/18/17 02/04/17 Unknown Simvastatin [Zocor TAB] 40 mg PO QHS 01/18/17 02/04/17 01/17/17 cloNIDine [Catapres] 0.2 mg PO TID 01/18/17 02/04/17 Unknown Previous Rx's Medication Instructions Recorded Last Taken Type Furosemide [Lasix TAB] 40 mg PO QDAY #30 tablet 01/13/17 Unknown Rx Lisinopril [Zestril TAB] 2.5 mg PO QDAY #30 tablet 01/13/17 Unknown Rx Carvedilol [Coreg] 12.5 mg PO BID #60 tablet 01/21/17 Unknown Rx Potassium Chloride 10 meq PO QDAY #30 capsule.er 01/21/17 Unknown Rx Allergies/Adverse Reactions: Allergies Allergy/AdvReac Type Severity Reaction Status Date / Time No Known Allergies Allergy Verified 01/10/17 21:41 ED Review of Systems ROS: Stated complaint: POSS TIA Other details as noted in HPI Comment: Unobtainable due to pts medical conditions ED Past Medical Hx - Past Medical History Previous Medical History?: Yes Hx Hypertension: Yes Hx Congestive Heart Failure: Yes Hx Diabetes: Yes Hx Asthma: Yes Hx COPD: Yes Additional medical history: chronic back pain - Surgical History Past Surgical History?: Yes - Social History Smoking Status: Never Smoker Substance Use Type: None - Medications Home Medications: Home Medications Medication Instructions Recorded Confirmed Last Taken Type Furosemide [Lasix TAB] 40 mg PO QDAY #30 tablet 01/13/17 02/04/17 Unknown Rx Lisinopril [Zestril TAB] 2.5 mg PO QDAY #30 tablet 01/13/17 02/04/17 Unknown Rx Insulin Aspart Prot/Aspart(Nf) 50 units SQ TID 01/18/17 02/04/17 Unknown History [NovoLOG Mix 70/30 VIAL] Metformin HCl [Glucophage] 1,000 mg PO BID 01/18/17 02/04/17 Unknown History Simvastatin [Zocor TAB] 40 mg PO QHS 01/18/17 02/04/17 01/17/17 History cloNIDine [Catapres] 0.2 mg PO TID 01/18/17 02/04/17 Unknown History Carvedilol [Coreg] 12.5 mg PO BID #60 tablet 01/21/17 02/04/17 Unknown Rx Potassium Chloride 10 meq PO QDAY #30 capsule.er 01/21/17 02/04/17 Unknown Rx ED Neuro Physical Exam - General Limitations: No Limitations General appearance: alert, in no apparent distress - Head Head exam: Present: atraumatic, normocephalic - Eye Eye exam: Present: normal appearance, PERRL - ENT ENT exam: Present: normal exam, mucous membranes moist - Neck Neck exam: Present: normal inspection - Respiratory Respiratory exam: Present: normal lung sounds bilaterally. Absent: respiratory distress - Cardiovascular Cardiovascular Exam: Present: regular rate, normal rhythm. Absent: systolic murmur, diastolic murmur, rubs, gallop - GI/Abdominal GI/Abdominal exam: Present: soft, normal bowel sounds. Absent: distended, tenderness, guarding, rebound, rigid - Extremities Exam Extremities exam: Present: normal inspection - Back Exam Back exam: Present: normal inspection - Neurological Exam Neurological exam: Present: alert, oriented X3 - NIHSS Assessment Interval: 24 hours post onset of symptoms +-20 minutes 1a. Level of Consciousness: alert 1b. LOC Questions: answers correctly 1c. LOC Commands: performs 1 task correctly 2. Best Gaze: normal 3. Visual: no visual loss 4. Facial Palsy: partial paralysis 5b. Motor Arm Right: no drift 5a. Motor Arm Left: some gravity effort 6a. Motor Leg Left: some gravity effort 6b. Motor Leg Right: no drift 7. Limb Ataxia: absent 8. Sensory: normal 9. Best Language: no aphasia 10. Dysarthria: normal 11. Extinction/Inattention: no abnormality Total Score: 7 Stroke Severity: Moderate Stroke - Psychiatric Psychiatric exam: Present: normal affect, normal mood - Skin Skin exam: Present: warm, dry, intact, normal color. Absent: rash ED Course Vital Signs 03/13/17 14:21 Pulse Rate 72 Respiratory 16 Rate Blood Pressure 93/45 O2 Sat by Pulse 88 Oximetry - Lab Data Result diagrams: 03/13/17 13:57 03/13/17 13:57 Lab Results 03/13/17 03/13/17 03/13/17 Range/Units 13:57 13:57 13:57 WBC 7.6 (4.5-11.0) K/mm3 RBC 5.54 H (3.65-5.03) M/mm3 Hgb 14.8 H (10.1-14.3) gm/dl Hct 43.7 H (30.3-42.9) % MCV 79 (79-97) fl MCH 27 L (28-32) pg MCHC 34 (30-34) % RDW 14.4 (13.2-15.2) % Plt Count 161 (140-440) K/mm3 Baso % (Auto) [employer] Worker PT 13.6 (12.2-14.9) Sec. INR 1.05 (0.87-1.13) APTT 31.5 (24.2-36.6) Sec. Thrombin Time (15.1-19.6) Sec. Sodium 136 L (137-145) mmol/L Potassium 4.4 (3.6-5.0) mmol/L Chloride 99.1 (98-107) mmol/L Carbon Dioxide 26 (22-30) mmol/L Anion Gap 15 mmol/L BUN 22 H (7-17) mg/dL Creatinine 1.2 (0.7-1.2) mg/dL Estimated GFR 54 ml/min BUN/Creatinine Ratio 18.33 % Glucose 165 H (65-100) mg/dL Calcium 9.6 (8.4-10.2) mg/dL Troponin T 0.017 (0.00-0.029) ng/mL 03/13/17 Range/Units 13:57 WBC (4.5-11.0) K/mm3 RBC (3.65-5.03) M/mm3 Hgb (10.1-14.3) gm/dl Hct (30.3-42.9) % MCV (79-97) fl MCH (28-32) pg MCHC (30-34) % RDW (13.2-15.2) % Plt Count (140-440) K/mm3 Baso % (Auto) PT (12.2-14.9) Sec. INR (0.87-1.13) APTT (24.2-36.6) Sec. Thrombin Time 17.6 (15.1-19.6) Sec. Sodium (137-145) mmol/L Potassium (3.6-5.0) mmol/L Chloride (98-107) mmol/L Carbon Dioxide (22-30) mmol/L Anion Gap mmol/L BUN (7-17) mg/dL Creatinine (0.7-1.2) mg/dL Estimated GFR ml/min BUN/Creatinine Ratio % Glucose (65-100) mg/dL Calcium (8.4-10.2) mg/dL Troponin T (0.00-0.029) ng/mL - EKG Data EKG shows normal: sinus rhythm Rate: normal When compared to previous EKG there are: no significant change - Radiology Data Radiology results: report reviewed, image reviewed - Medical Decision Making Was seen today with shortness Weakness last time she was seenyesterday after dinner around 9 PM she when she went to sleep in her nephew woke her up and noticed that he she was in a fairly and she was unable to move her left arm and left leg properly appointment with EMS was called and the patient here to the ER. Head CT showed some ischemic changes and lacunar infarcts no no cervical bleeding FOR THE CBC AND CMP ARE UNCHANGED AND NORMAL EKG IS NORMAL TO DISCUSS THE CASE DR. JACOBSEN HOSPITALIST AGREED WITH THE ADMISSION ASPIRIN WAS GIVEN - Core Measures Measure Exclusions: not indicated - Thrombolytic Inclusion/Exclusion Thrombolytic Exclusion Criteria: Symptom Onset > 3 Hours Critical care time in (mins) excluding proc time.: 45 Critical care attestation.: If time is entered above; I have spent that time in minutes in the direct care of this critically ill patient, excluding procedure time. ED Disposition Clinical Impression: CVA (cerebral vascular accident) Disposition: OP ADMITTED IP TO THIS HOSP Is pt being admited?: Yes Does the pt Need Aspirin: Yes Condition: Fair Referrals: KENDRA CHO MD [Primary Care Provider] - 3-5 Days Time of Disposition: 14:57
--- NOTE | 2017-03-13 14:58 | History and Physical Report ---
History of Present Illness Chief complaint: I feel real weak History of present illness: 66 YO Female with CHF, HTN, DM, Asthma, COPD, Back Pain presents to ED for evaluation. Pt states that she awoke today and felt weak on her left side(arm, face) and was unable to speak clearly. Pt seen and evaluated in ED and found to be outside therapeutic window for TPA. Pt denies fever, chills, CP, Palpitation , NVD, syncope, vision changes, difficulty breathing, leg swelling, calf pain, individual/family history of DVT/PE, vertigo, seizure, or recent ill contacts. Past History Past Medical History: COPD, heart failure, hypertension, other (lumbar pain) Past Surgical History: No surgical history, Other (reviewed) Social history: , lives with family. denies: smoking, alcohol abuse, prescription drug abuse, IV drug use Family history: denies: no significant family history Medications and Allergies Allergies Allergy/AdvReac Type Severity Reaction Status Date / Time No Known Allergies Allergy Verified 01/10/17 21:41 Home Medications Medication Instructions Recorded Confirmed Last Taken Type Furosemide [Lasix TAB] 40 mg PO QDAY #30 tablet 01/13/17 03/13/17 03/13/17 Rx Lisinopril [Zestril TAB] 2.5 mg PO QDAY #30 tablet 01/13/17 03/13/17 03/13/17 Rx Insulin Aspart Prot/Aspart(Nf) 50 units SQ TID 01/18/17 03/13/17 03/13/17 History [NovoLOG Mix 70/30 VIAL] Metformin HCl [Glucophage] 1,000 mg PO BID 01/18/17 03/13/17 03/13/17 History Simvastatin [Zocor TAB] 40 mg PO QHS 01/18/17 03/13/17 03/13/17 History cloNIDine [Catapres] 0.2 mg PO TID 01/18/17 03/13/17 03/13/17 History Carvedilol [Coreg] 12.5 mg PO BID #60 tablet 01/21/17 03/13/17 03/13/17 Rx Potassium Chloride 10 meq PO QDAY #30 capsule.er 01/21/17 03/13/17 03/13/17 Rx Active Meds: Active Medications Sodium Chloride (Nacl 0.9% 1000 Ml) 1,000 mls @ 999 mls/hr IV BOLUS ONE Stop: 03/13/17 15:29 Last Admin: 03/13/17 14:32 Dose: 999 mls/hr Review of Systems All systems: negative Neurological: weakness Exam - Constitutional Vitals: Temp Pulse Resp BP Pulse Ox 72 16 93/45 88 03/13/17 14:21 03/13/17 14:21 03/13/17 14:21 03/13/17 14:21 General appearance: Present: no acute distress, well-nourished - EENT Eyes: Present: PERRL ENT: hearing intact, clear oral mucosa, other (Left facial droop) - Neck Neck: Present: supple, normal ROM - Respiratory Respiratory effort: normal Respiratory: bilateral: CTA - Cardiovascular Heart Sounds: Present: S1 & S2. Absent: rub, click - Extremities Extremities: pulses symmetrical, No edema Peripheral Pulses: within normal limits - Abdominal General gastrointestinal: Present: soft, non-tender, non-distended, normal bowel sounds Female genitourinary: Present: normal - Integumentary Integumentary: Present: clear, warm, dry - Musculoskeletal Musculoskeletal: gait normal, strength equal bilaterally - Psychiatric Psychiatric: appropriate mood/affect, intact judgment & insight - Neurologic Neurologic: CNII-XII intact, moves all extremities Results - Labs CBC & Chem 7: 03/13/17 13:57 03/13/17 13:57 Labs: Abnormal lab results 03/13/17 03/13/17 Range/Units 13:57 13:57 RBC 5.54 H (3.65-5.03) M/mm3 Hgb 14.8 H (10.1-14.3) gm/dl Hct 43.7 H (30.3-42.9) % MCH 27 L (28-32) pg Sodium 136 L (137-145) mmol/L BUN 22 H (7-17) mg/dL Glucose 165 H (65-100) mg/dL Assessment and Plan - Patient Problems (1) CVA (cerebral vascular accident) Current Visit: Yes Status: Acute Qualifiers: CVA mechanism: C Precerebral and cerebral artery: P Laterality of affected vessel: L Plan to address problem: Stroke Protocol: DAPT, PT/PT, Speech therapy, MRI, MRA, Echo, Carotid doppler (2) CHF (congestive heart failure) Current Visit: No Status: Acute Qualifiers: Congestive heart failure type: unspecified congestive heart failure type Congestive heart failure chronicity: acute on chronic Qualified Code(s): I50.9 - Heart failure, unspecified Plan to address problem: Chronic: stable, resume home medication, telemetry monitoring, supportive care. (3) COPD (chronic obstructive pulmonary disease) Current Visit: No Status: Chronic Qualifiers: COPD type: C Chronic bronchitis type: C Emphysema type: E Plan to address problem: supplemental oxygen, nebs, aspiration precatutions. (4) HTN (hypertension) Current Visit: No Status: Chronic Qualifiers: Hypertension type: H Plan to address problem: monitor bp q shift, resume home medication. (5) Hyperlipidemia Current Visit: No Status: Chronic Qualifiers: Hyperlipidemia type: mixed hyperlipidemia Qualified Code(s): E78.2 - Mixed hyperlipidemia Plan to address problem: continue statin therapy (6) IDDM (insulin dependent diabetes mellitus) Current Visit: No Status: Chronic Plan to address problem: ADA diet, insulin, accu check (7) DVT prophylaxis Current Visit: No Status: Acute
[2017-03-13] MEDS ORDERED: TYLENOL PO PRN ×2 (15:05)
[2017-03-13] MEDS ORDERED: REGLAN PO PRN (15:05)
[2017-03-13] MEDS ORDERED: PHENERGAN PR PRN (15:05)
[2017-03-13] MEDS ORDERED: ZOFRAN IV PRN ×2 (15:05)
[2017-03-13] MEDS ORDERED: DULCOLAX PR PRN ×2 (15:05)
[2017-03-13] MEDS ORDERED: MILK OF MAGNESIA PO PRN ×2 (15:05)
[2017-03-13] MEDS ORDERED: SODIUM CHLORIDE FLUSH SYRINGE 10 ML IV PRN (15:05)
[2017-03-13] MEDS ORDERED: DUONEB 0.5 MG-3 MG/3 ML SOLN IH PRN (15:05)
--- NOTE | 2017-03-13 15:36 | Admit Criteria Form ---
Admission Criteria Documentation: STROKE: ISCHEMIC Clinical Indications for Admission to Inpatient Care (Place 'X' for any and all applicable criteria): Admission is indicated for ANY ONE of the following(1)(2)(3)(4): [ X]I. Acute stroke Extended stay beyond goal length of stay may be needed for(1)(2) [ ]a) Major deficit or clinical deterioration [ ]b) Hospital-acquired infection (eg, urinary tract infection, pneumonia) [ ]c) Embolic cause of stroke [ ]d) Venous thromboembolism(9) [ ]e) Seizures [ ]f) Bleeding (eg, cerebral) [ ]g) Increased intracranial pressure [ ]h) Comorbidities [ ]i) Surgical intervention The original [email or web address] content created by [employer] has been revised. The portions of the content which have been revised are identified through the use of italic text or in bold, and [facility] has neither reviewed nor approved the modified material. All other unmodified content is copyright [email or web address]. Please see references footnoted in the original [email or web address] edition 2016 Admission Criteria Met: Yes
[2017-03-13 15:42] LABS: INR 1.07 (0.87-1.13); Partial Thromboplastin Time 32.6 Sec. (24.2-36.6)
[2017-03-13] MEDS ORDERED: PROVENTIL IH PRN (15:42)
[2017-03-13 15:43] LABS: Basophils % (Manual) 0 % (0.0-1.8); Blastocytes % (Manual) 0 %; Eosinophils % (Manual) 0 % (0.0-4.3)
[2017-03-13 15:45] LABS: Large Platelets Few; Platelet Estimate Consistent w Auto
[2017-03-13 15:46] LABS: Anisocytosis Few; Diff Status Complete
[2017-03-13 16:01] LABS: Creatine Kinase MB 1.9 ng/mL (0.0-4.0)
[2017-03-13] MEDS ORDERED: ECOTRIN PO ONE (16:01)
[2017-03-13] MEDS ORDERED: ASPART SQ SCH (20:00)
[2017-03-13] MEDS ORDERED: INSULIN ASPART PROT SQ SCH (20:00)
[2017-03-13] MEDS: CATAPRES PO SCH (20:48)
[2017-03-13] MEDS ORDERED: ZOCOR PO SCH (22:00)
[2017-03-13] MEDS: COREG PO SCH (22:14)
[2017-03-13] MEDS: ZOCOR PO SCH (22:18)
[2017-03-14] MEDS: CATAPRES PO SCH ×3 (08:15→21:52)
[2017-03-14] MEDS: COREG PO SCH ×2 (08:16→21:52)
[2017-03-14] MEDS: LASIX PO SCH (08:17)
--- NOTE | 2017-03-14 09:17 | Magnetic Resonance Report ---
MRA HEAD WITHOUT CONTRAST HISTORY: Stroke. [id number] imaging with MIP reformations of the [place] is submitted. The arteries appear widely patent and free of hemodynamically significant stenosis or aneurysm dilatation. Both vertebral arteries are identified appearing patent as well. IMPRESSION: Unremarkable MRA head.
--- NOTE | 2017-03-14 09:17 | Magnetic Resonance Report ---
MRI OF THE BRAIN WITHOUT CONTRAST: HISTORY: Stroke PROCEDURE: Multiplanar, multisequence MR imaging of the brain without IV contrast was performed. FINDINGS: Compared to the CT brain dated 03/13/17. No evidence for acute ischemia, hemorrhage or mass. No extra axial fluid collection. Mild diffuse cortical volume loss and moderate nonspecific chronic white matter changes are identified. Chronic focal infarcts are identified in the left [place], bilateral basal ganglia and right frontoparietal cortex. The midline structures are central. The basal cisterns are patent. Normal ventricular size. The orbital cavities and sella turcica demonstrate no abnormality. The visualized paranasal sinuses and mastoid air cells are well aerated. IMPRESSION: Volume loss, chronic white matter changes and multiple chronic infarcts as described. No acute intracranial process is appreciated.
[2017-03-14] MEDS ORDERED: NON-FORMULARY (Potassium Chloride [Potassium Chloride] 10 MEQ) PO SCH (10:00)
[2017-03-14] MEDS: K-DUR PO SCH (10:16)
[2017-03-14] MEDS: ZESTRIL PO SCH (10:17)
[2017-03-14] MEDS: PLAVIX PO SCH (10:17)
--- NOTE | 2017-03-14 13:06 | Progress Note ---
Assessment and Plan Assessment and plan: 89 years old female with hypertension, diabetes, COPD, chronic back pain, admitted for slurred speech and weakness of her left side per her report 1. CVA Acute stroke was suspected based on her symptoms and workup initiated CT head revealed mild atrophy and old lacunar infarcts MRI brain showed volume loss, multiple chronic infarcts and no acute process ECHO obtained, results pending Carotid Doppler with <50% stenoses bilaterally Lipid panel obtained and LDL 49, HDL 71 Continue antiplatelet and statin therapy PT/OT/ST 2. Hypertension On metoprolol, lisinopril, Lasix BP controlled 3. CHF Without exacerbation On the above mentioned medications 4. Diabetes Continue insulin 70/30 along with SSI based on Accu-Cheks 5. COPD Stable, on inhaled bronchodilators as needed 6. Chronic back pain Home medications resumed 7. DVT prophylaxis History Interval history: no specific complaints except for generalized pain; asking for pain medications and food Hospitalist Physical - Constitutional Vitals: Temp Pulse Resp BP Pulse Ox 97.5 F L 69 20 134/75 100 03/14/17 08:03 03/14/17 08:03 03/14/17 04:30 03/14/17 08:03 03/14/17 12:02 General appearance: Present: no acute distress, well-nourished - EENT Eyes: Present: PERRL, EOM intact. Absent: scleral icterus, conjunctival injection ENT: clear oral mucosa, poor dentition - Neck Neck: Present: supple, normal ROM. Absent: masses or JVD - Respiratory Respiratory effort: normal Respiratory: bilateral: CTA, negative: rales, rhonchi, wheezing - Cardiovascular Rhythm: regular Heart Sounds: Present: S1 & S2. Absent: systolic murmur - Extremities Extremities: no ischemia - Abdominal General gastrointestinal: soft, non-tender, non-distended, normal bowel sounds - Psychiatric Psychiatric: no intact judgment & insight, cooperative - Neurologic Neurologic: moves all extremities Results - Labs CBC & Chem 7: 03/13/17 13:57 03/13/17 13:57 Labs: Laboratory Last Values WBC 7.6 K/mm3 (4.5-11.0) 03/13/17 13:57 RBC 5.54 M/mm3 (3.65-5.03) H 03/13/17 13:57 Hgb 14.8 gm/dl (10.1-14.3) H 03/13/17 13:57 Hct 43.7 % (30.3-42.9) H 03/13/17 13:57 MCV 79 fl (79-97) 03/13/17 13:57 MCH 27 pg (28-32) L 03/13/17 13:57 MCHC 34 % (30-34) 03/13/17 13:57 RDW 14.4 % (13.2-15.2) 03/13/17 13:57 Plt Count 161 K/mm3 (140-440) 03/13/17 13:57 Baso % (Auto) Thread Spinner 03/13/17 13:57 Add Manual Diff Complete 03/13/17 13:57 Total Counted 100 03/13/17 13:57 Seg Neuts % (Manual) 51.0 % (40.0-70.0) 03/13/17 13:57 Band Neutrophils % 0 % 03/13/17 13:57 Lymphocytes % (Manual) 42.0 % (13.4-35.0) H 03/13/17 13:57 Reactive Lymphs % (Man) 0 % 03/13/17 13:57 Monocytes % (Manual) 7.0 % (0.0-7.3) 03/13/17 13:57 Eosinophils % (Manual) 0 % (0.0-4.3) 03/13/17 13:57 Basophils % (Manual) 0 % (0.0-1.8) 03/13/17 13:57 Metamyelocytes % 0 % 03/13/17 13:57 Myelocytes % 0 % 03/13/17 13:57 Promyelocytes % 0 % 03/13/17 13:57 Blast Cells % 0 % 03/13/17 13:57 Nucleated RBC % Not Reportable 03/13/17 13:57 Seg Neutrophils # Man 3.9 K/mm3 (1.8-7.7) 03/13/17 13:57 Band Neutrophils # 0.0 K/mm3 03/13/17 13:57 Lymphocytes # (Manual) 3.2 K/mm3 (1.2-5.4) 03/13/17 13:57 Abs React Lymphs (Man) 0.0 K/mm3 03/13/17 13:57 Monocytes # (Manual) 0.5 K/mm3 (0.0-0.8) 03/13/17 13:57 Eosinophils # (Manual) 0.0 K/mm3 (0.0-0.4) 03/13/17 13:57 Basophils # (Manual) 0.0 K/mm3 (0.0-0.1) 03/13/17 13:57 Metamyelocytes # 0.0 K/mm3 03/13/17 13:57 Myelocytes # 0.0 K/mm3 03/13/17 13:57 Promyelocytes # 0.0 K/mm3 03/13/17 13:57 Blast Cells # 0.0 K/mm3 03/13/17 13:57 WBC Morphology Not Reportable 03/13/17 13:57 Hypersegmented Neuts Not Reportable 03/13/17 13:57 Hyposegmented Neuts Not Reportable 03/13/17 13:57 Hypogranular Neuts Not Reportable 03/13/17 13:57 Smudge Cells Not Reportable 03/13/17 13:57 Toxic Granulation Not Reportable 03/13/17 13:57 Toxic Vacuolation Not Reportable 03/13/17 13:57 Dohle Bodies Not Reportable 03/13/17 13:57 Pelger-Huet Anomaly Not Reportable 03/13/17 13:57 Wes Rods Not Reportable 03/13/17 13:57 Platelet Estimate Consistent w auto 03/13/17 13:57 Clumped Platelets Not Reportable 03/13/17 13:57 Plt Clumps, EDTA Not Reportable 03/13/17 13:57 Large Platelets Few 03/13/17 13:57 Giant Platelets Not Reportable 03/13/17 13:57 Platelet Satelliting Not Reportable 03/13/17 13:57 Plt Morphology Comment Not Reportable 03/13/17 13:57 RBC Morphology Not Reportable 03/13/17 13:57 Dimorphic RBCs Not Reportable 03/13/17 13:57 Polychromasia Not Reportable 03/13/17 13:57 Hypochromasia Not Reportable 03/13/17 13:57 Poikilocytosis Not Reportable 03/13/17 13:57 Anisocytosis Few 03/13/17 13:57 Microcytosis Not Reportable 03/13/17 13:57 Macrocytosis Not Reportable 03/13/17 13:57 Spherocytes Not Reportable 03/13/17 13:57 Pappenheimer Bodies Not Reportable 03/13/17 13:57 Sickle Cells Not Reportable 03/13/17 13:57 Target Cells Not Reportable 03/13/17 13:57 Tear Drop Cells Not Reportable 03/13/17 13:57 Ovalocytes Not Reportable 03/13/17 13:57 Helmet Cells Not Reportable 03/13/17 13:57 [place] Bodies Not Reportable 03/13/17 13:57 [place] Rings Not Reportable 03/13/17 13:57 Nona Cells Not Reportable 03/13/17 13:57 Bite Cells Not Reportable 03/13/17 13:57 Crenated Cell Not Reportable 03/13/17 13:57 Elliptocytes Not Reportable 03/13/17 13:57 Acanthocytes (Spur) Not Reportable 03/13/17 13:57 Rouleaux Not Reportable 03/13/17 13:57 Hemoglobin C Crystals Not Reportable 03/13/17 13:57 Schistocytes Not Reportable 03/13/17 13:57 Malaria parasites Not Reportable 03/13/17 13:57 Riki Bodies Not Reportable 03/13/17 13:57 Hem Pathologist Commnt No 03/13/17 13:57 PT 13.8 Sec. (12.2-14.9) 03/13/17 15:17 INR 1.07 (0.87-1.13) 03/13/17 15:17 APTT 32.6 Sec. (24.2-36.6) 03/13/17 15:17 Thrombin Time 16.7 Sec. (15.1-19.6) 03/13/17 15:17 Sodium 136 mmol/L (137-145) L 03/13/17 13:57 Potassium 4.4 mmol/L (3.6-5.0) 03/13/17 13:57 Chloride 99.1 mmol/L (98-107) 03/13/17 13:57 Carbon Dioxide 26 mmol/L (22-30) 03/13/17 13:57 Anion Gap 15 mmol/L 03/13/17 13:57 BUN 22 mg/dL (7-17) H 03/13/17 13:57 Creatinine 1.2 mg/dL (0.7-1.2) 03/13/17 13:57 Estimated GFR 54 ml/min 03/13/17 13:57 BUN/Creatinine Ratio 18.33 % 03/13/17 13:57 Glucose 165 mg/dL (65-100) H 03/13/17 13:57 POC Glucose 171 (70-105) H 03/13/17 22:10 Calcium 9.6 mg/dL (8.4-10.2) 03/13/17 13:57 Total Creatine Kinase 31 units/L (30-135) 03/13/17 15:17 CK-MB (CK-2) 1.9 ng/mL (0.0-4.0) 03/13/17 15:17 CK-MB (CK-2) Rel Index 6.1 (0-4) H 03/13/17 15:17 Troponin T 0.013 ng/mL (0.00-0.029) 03/13/17 15:17 Triglycerides 66 mg/dL (2-149) 03/14/17 03:43 Cholesterol 133 mg/dL (50-199) 03/14/17 03:43 LDL Cholesterol Direct 49 mg/dL (50-130) L 03/14/17 03:43 HDL Cholesterol 71 mg/dL (40-59) H 03/14/17 03:43 Cholesterol/HDL Ratio 1.87 % 03/14/17 03:43 - Imaging and Cardiology CT Scan - head: report reviewed MRI - head: report reviewed
[2017-03-14] MEDS: ASPIRIN PO SCH (15:16)
--- NOTE | 2017-03-14 15:20 | Consultation ---
History of Present Illness - Reason for Consult Consult date: 03/14/17 Evaluate for Acute IRU - History of Present Illness 66 y.o. female who presented due to acute onset of left sided weakness and dysarthria. CT brain noted to be negative for CVA; F/U Brain MRI showed multiple chronic infarcts. On today, pt reports improved weakness and dysarthria. Pt noted to have a productive cough; cleared by EKG/ECG TECHNICIAN for mechanical soft diet. Pt reports cough related to eating too quickly. Consult placed for post-acute placement recommendations. Past History Past Medical History: COPD, diabetes, heart failure, hypertension, other (back pain; asthma) Past Surgical History: Other (right ankle surgery; tubal ligation) Social history: , lives with family, smoking. denies: alcohol abuse Family history: CAD, diabetes, stroke Medications and Allergies Allergies Allergy/AdvReac Type Severity Reaction Status Date / Time No Known Allergies Allergy Verified 01/10/17 21:41 Home Medications Medication Instructions Recorded Confirmed Last Taken Type Furosemide [Lasix TAB] 40 mg PO QDAY #30 tablet 01/13/17 03/13/17 03/13/17 Rx Lisinopril [Zestril TAB] 2.5 mg PO QDAY #30 tablet 01/13/17 03/13/17 03/13/17 Rx Insulin Aspart Prot/Aspart(Nf) 50 units SQ TID 01/18/17 03/13/17 03/13/17 History [NovoLOG Mix 70/30 VIAL] Metformin HCl [Glucophage] 1,000 mg PO BID 01/18/17 03/13/17 03/13/17 History Simvastatin [Zocor TAB] 40 mg PO QHS 01/18/17 03/13/17 03/13/17 History cloNIDine [Catapres] 0.2 mg PO TID 01/18/17 03/13/17 03/13/17 History Carvedilol [Coreg] 12.5 mg PO BID #60 tablet 01/21/17 03/13/17 03/13/17 Rx Potassium Chloride 10 meq PO QDAY #30 capsule.er 01/21/17 03/13/17 03/13/17 Rx Active Meds: Active Medications Acetaminophen (Tylenol) 650 mg PO Q4H PRN PRN Reason: Pain MILD(1-3)/Fever >100.5/WHEELER Albuterol (Proventil) 2.5 mg IH Q4H PRN PRN Reason: Shortness Of Breath Aspirin (Aspirin) 325 mg PO QDAY [facility] Bisacodyl (Dulcolax) 10 mg IN QDAY PRN PRN Reason: Constipation unrelieved by MOM Carvedilol (Coreg) 12.5 mg PO BID [facility] Last Admin: 03/13/17 22:14 Dose: 12.5 mg Clonidine HCl (Catapres) 0.2 mg PO TID [facility] Last Admin: 03/13/17 20:48 Dose: 0.2 mg Clopidogrel Bisulfate (Plavix) 75 mg PO QDAY [facility] Furosemide (Lasix) 40 mg PO QDAY [facility] Insulin Human Isoph/Insulin Regular (Novolin 70/30) 50 unit SUB-Q TID [facility] Last Admin: 03/13/17 22:14 Dose: 50 unit Lisinopril (Zestril) 2.5 mg PO QDAY [facility] Magnesium Hydroxide (Milk Of Magnesia) 30 ml PO Q4H PRN PRN Reason: Constipation Metoclopramide HCl (Reglan) 10 mg PO Q6H PRN PRN Reason: Nausea And Vomiting Ondansetron HCl (Zofran) 4 mg IV Q8H PRN PRN Reason: N/V unrelieved by Reglan Potassium Chloride (K-Dur) 10 meq PO QDAY [facility] Promethazine HCl (Phenergan) 25 mg IN Q6H PRN PRN Reason: Nausea And Vomiting Simvastatin (Zocor) 40 mg PO QHS [facility] Last Admin: 03/13/17 22:18 Dose: Not Given Sodium Chloride (Sodium Chloride Flush Syringe 10 Ml) 10 ml IV PRN PRN PRN Reason: LINE FLUSH Review of Systems All systems: negative Ears, nose, mouth and throat: no headache Cardiovascular: no chest pain Respiratory: cough with sputum, dyspnea on exertion Gastrointestinal: no nausea, no vomiting Neurological: change in speech Exam - Constitutional Vitals: Vital Signs - 12hr 03/14/17 03/14/17 03/14/17 04:30 08:00 08:03 Temperature 97.5 F L 98.2 F 97.5 F L Pulse Rate [ 64 82 69 Left] Respiratory 20 18 Rate Blood Pressure 129/61 154/74 134/75 [Left Arm] O2 Sat by Pulse 100 98 94 Oximetry 03/14/17 12:02 Temperature Pulse Rate [ Left] Respiratory Rate Blood Pressure [Left Arm] O2 Sat by Pulse 100 Oximetry General appearance: mild distress (occasional cough; reports eating too fast because she was hungry, oxygen sat 100% when checked by nurse during exam), obese - EENT Eyes: EOM intact ENT: hearing intact - Neck Neck: supple, normal ROM - Respiratory Respiratory effort: normal Respiratory: bilateral: CTA - Cardiovascular Rhythm: regular Heart Sounds: Present: S1 & S2 - Extremities Extremities: No edema Extremity abnormal: tenderness (left medial Lower leg) - Gastrointestinal General gastrointestinal: Present: soft, non-tender, non-distended, normal bowel sounds - Neurologic Neurologic: moves all extremities (4/5 strength), other (mild facial droop with +dysarthria) - Psychiatric Psychiatric: appropriate mood/affect, intact judgment & insight, memory intact, cooperative - Allied health notes Allied health notes reviewed: PT (mod-maxA for bed mobility; no transfers, gait ), ST (cleared for mechanical soft diet with ground meats), OT (SBA/Set-up fro ADLs; min/CGA for transfers) - Labs CBC & Chem 7: 03/13/17 13:57 03/13/17 13:57 Labs: Laboratory Results - last 72 hr 03/13/17 03/13/17 03/13/17 15:17 15:17 22:10 PT 13.8 INR 1.07 APTT 32.6 Thrombin Time 16.7 POC Glucose 171 H Total Creatine Kinase 31 CK-MB (CK-2) 1.9 CK-MB (CK-2) Rel Index 6.1 H Troponin T 0.013 Triglycerides Cholesterol LDL Cholesterol Direct HDL Cholesterol Cholesterol/HDL Ratio 03/14/17 03:43 PT INR APTT Thrombin Time POC Glucose Total Creatine Kinase CK-MB (CK-2) CK-MB (CK-2) Rel Index Troponin T Triglycerides 66 Cholesterol 133 LDL Cholesterol Direct 49 L HDL Cholesterol 71 H Cholesterol/HDL Ratio 1.87 Assessment and Plan Patient was assessed and evaluated for Acute Inpatient Rehab Unit. 66 y.o. female with history of prior CVA; imaging negative for acute CVA. Pt reports improving weakness and dysarthria. During today's therapy evaluations, pt able to complete ADLs at SBA/setup; however, required min-maxA for bed mobility and unable to transfer with PT after being [place]/CGA with OT. Will need to F/U progress in AM as this is a significant discrepancy. Need for IRU placement pending progress with therapies. Ongoing management of DM and HTN per IM. Will continue to follow; thank you for consultation. - Patient Problems (1) Left hemiparesis Current Visit: Yes Status: Acute (2) Dysarthria Current Visit: Yes Status: Acute (3) HTN (hypertension) Current Visit: Yes Status: Chronic Qualifiers: Hypertension type: essential hypertension (4) IDDM (insulin dependent diabetes mellitus) Current Visit: Yes Status: Chronic
[2017-03-14] MEDS: ZOCOR PO SCH (21:52)
[2017-03-15 09:14] VITALS: BP 125/61
[2017-03-15] MEDS: CATAPRES PO SCH (10:38)
[2017-03-15] MEDS: LASIX PO SCH (10:38)
[2017-03-15] MEDS: ZESTRIL PO SCH (10:38)
[2017-03-15] MEDS: COREG PO SCH (10:38)
[2017-03-15] MEDS: K-DUR PO SCH (10:38)
[2017-03-15] MEDS: PLAVIX PO SCH (10:38)
[2017-03-15] MEDS: ASPIRIN PO SCH (10:38)
--- NOTE | 2017-03-15 12:20 | Discharge Summary ---
Providers - Providers Date of Admission: 03/13/17 14:52 Date of discharge: 03/15/17 Attending physician: WALTER SNIDER 03/13/17 15:05 Occupational Therapy Evaluate and Treat [CONS] Routine Comment: Reason For Exam: Neuro deficits Physical Therapy Evaluation and Treat [CONS] Routine Comment: Reason For Exam: Neuro deficits 03/13/17 15:06 Speech Therapy Evaluation and Treat [CONS] Routine Reason For Exam: swallow eval 03/14/17 11:18 Consult Acute Rehabilitation [CONS] Routine Consulting Provider: ASA FUNES Reason For Exam: CVA Primary care physician: KENDRA CHO Hospitalization Reason for admission: slurring of speech and left-sided weakness Condition: Fair Pertinent studies: CT head without contrast; old lacunar infarcts in the [place] right and left calamitous 50 extremities Moderate Sized Old Area of Encephalomalacia Seen Right Parietal Lobe Superiors Laterally Mild asymmetry in the density of left middle cerebral artery and left side appears slightly more dense than the right MRI brain; volume loss and chronic white matter changes with multiple chronic infarcts no acute intracranial process noted MRA brain; normal study Carotid Doppler; no hemodynamically significant stenosis Echocardiogram; left ventricular ejection fraction 20-25% Hospital course: very pleasant 66-year-old female patient with significant past medical history of COPD congestive heart failure systolic dysfunction hypertension chronic back pain and was admitted through emergency room with history of slurring of speech and left-sided arm and face and body weakness when she woke up on the day of admission patient was not a candidate for TPA Was initially evaluated and admitted to the hospital symptomatically managed Stroke protocol was initiated, patient had extensive neuro workup as mentioned above Received physical therapy occupational therapy, evaluated by acute rehabilitation however acute rehabilitation not a candidate for acute rehabilitation nutrition services worker have evaluated the patient and set up home health with home PT On the day Day of discharge patient was comfortable, mild slurring of speech, left-sided weakness Alert and awake, vital signs are stable [id number] evaluation physical examination done by me prior to discharge did not show any new changes as detailed below Hemodynamically and clinically stable for discharge and does not need any further acute inpatient care at this time We'll follow with primary care physician and neurologist per schedule Final diagnosis; Acute CVA with left-sided weakness and slurring of speech Type 2 diabetes mellitus Acute on chronic systolic congestive heart failure ejection fraction 20% Dyslipidemia History of COPD Hypertension Chronic pain syndrome Ongoing tobacco use Disposition: DC/TX HOME UNDER HOME HEALTH Time spent for discharge: 33 min Core Measure Documentation - Palliative Care Palliative Care/ Comfort Measures: Not Applicable - Core Measures Any of the following diagnoses?: heart failure, stroke - Heart Failure Discharge Requirements JAVED/ARB for LVSD if EF <40%: Yes Beta loraine at discharge: Yes - Stroke Discharge Requirements Statin for LDL = or >70 mg/dl on DC: Yes Anticoag for atrial fib/atrial flutter: Not Applicable (no history of atrial fibrillation or flutter) Antithrombotic for ischemic stroke: Yes Exam - Constitutional Vitals: Temp Pulse Resp BP Pulse Ox 97.9 F 71 20 125/61 98 03/15/17 09:13 03/15/17 09:13 03/15/17 09:13 03/15/17 09:13 03/15/17 09:13 General appearance: Present: no acute distress, well-nourished - EENT Eyes: Present: PERRL, EOM intact - Neck Neck: Present: supple, normal ROM - Respiratory Respiratory effort: normal Respiratory: bilateral: diminished, negative: rales, rhonchi, wheezing - Cardiovascular Rhythm: regular Heart Sounds: Present: S1 & S2 - Extremities Extremities: no ischemia, pulses intact, pulses symmetrical Peripheral Pulses: within normal limits - Abdominal General gastrointestinal: Present: soft, non-tender, non-distended, normal bowel sounds - Integumentary Integumentary: Present: clear, warm - Musculoskeletal Musculoskeletal: left sided weakness - Psychiatric Psychiatric: appropriate mood/affect, cooperative - Neurologic Neurologic: moves all extremities, other (left-sided weakness, mild setting speech) Plan Activity: advance as tolerated, no driving until cleared by PCP Diet: low cholesterol, low salt, diabetic, advance as tolerated, other ( mechanical soft diet) Special Instructions: physical therapy Additional Instructions: home PT/OT Follow up with: KENDRA CHO MD [Primary Care Provider] - 3-5 Days ZEN MUHAMMAD MD [Staff Physician] - 7 Days Forms: Discharge Signature Page Prescriptions: Clopidogrel [Plavix] 75 mg PO QDAY #30 tablet
== END 2017-03-15 13:10 | disposition home health service (06) | DRG 64 ==
LOC: ED 13:54 → CC1 14:52 → 4A 15:38
PROVIDERS: ADMIT Internal Medicine; ATTEND Internal Medicine
DX: I63.9 Cerebral infarction, unspecified (principal); I50.23 Acute on chronic systolic (congestive) heart failure; G81.94 Hemiplegia, unspecified affecting left nondominant side; J44.9 Chronic obstructive pulmonary disease, unspecified; E78.5 Hyperlipidemia, unspecified; E11.9 Type 2 diabetes mellitus without complications; I11.0 Hypertensive heart disease with heart failure; R47.1 Dysarthria and anarthria; G89.4 Chronic pain syndrome; Z82.49 Family history of ischemic heart disease and other diseases of the circulatory system; Z82.3 Family history of stroke; Z83.3 Family history of diabetes mellitus; Z98.51 Tubal ligation status
CPT/HCPCS: 36415; 70450; 70544; 70551; 80048; 80061; 82550; 82553; 82962; 84484; 85007; 85025; 85610; 85670; 85730; 93005; 93010; 93306; 93880; 96360; 99406; G8987-GO; G8988-GO; G8989-GO; G8996-GN; G8997-GN; G8998-GN; J1815; J7030

== ENCOUNTER 2017-08-29 10:09 | Inpatient (IN) | payer MEDICARE ==
[2017-08-29] MEDS ORDERED: NACL 0.9% 1000 ML 1,000 ML ONE (10:23)
--- NOTE | 2017-08-29 10:42 | Emergency Department Report ---
HPI - General Chief Complaint: Altered Mental Status Time Seen by Provider: 08/29/17 10:30 - HPI HPI: Room 26 The patient is a 67-year-old female brought in by EMS with a chief complaint of altered mental status. Per EMS the patient is a resident at an assisted living facility was concerned she may have taken too much morphine. Facility called EMS secondary to the patient having decreased responsiveness. EMS states they administered 2 mg of Narcan IV with some improvement. The patient does arouse to sternal rub the sensation feels "okay" when asked. The patient then falls back to sleep Location: Mental state Duration: unknown Quality: Decreased responsiveness Severity: Moderate Modifying factors: [see above] Context: [see above] Mode of transportation: [not driving] ED Past Medical Hx - Past Medical History Hx Hypertension: Yes Hx Congestive Heart Failure: Yes Hx Diabetes: Yes Hx Asthma: Yes Hx COPD: Yes Additional medical history: chronic back pain - Family History Family history: no significant - Social History Smoking Status: Unknown if ever smoked - Medications Home Medications: Home Medications Medication Instructions Recorded Confirmed Last Taken Type Simvastatin [Zocor TAB] 40 mg PO QHS 01/18/17 08/22/17 03/13/17 History cloNIDine [Catapres] 0.4 mg PO DAILY 01/18/17 08/22/17 03/13/17 History Felodipine [Felodipine ER] 10 mg PO DAILY 08/22/17 08/22/17 Unknown History Metformin HCl [Glucophage] 500 mg PO BIDWM 08/22/17 08/22/17 Unknown History Metolazone 5 mg PO DAILY 08/22/17 08/22/17 Unknown History Morphine ER [Ms Contin ER] 15 mg PO BID 08/22/17 08/22/17 Unknown History Carvedilol [Coreg] 25 mg PO BIDDIAB #60 tablet 08/24/17 Unknown Rx Clopidogrel [Plavix] 75 mg PO QDAY #30 tablet 08/24/17 Unknown Rx Furosemide [Lasix TAB] 40 mg PO QDAY #30 tablet 08/24/17 Unknown Rx Insulin NPH/Regular [NovoLIN 70/30] 15 unit SUB-Q BIDDIAB 30 Days 08/24/17 Unknown Rx Lisinopril [Zestril TAB] 10 mg PO DAILY #30 tablet 08/24/17 Unknown Rx Potassium Chloride [K-Dur] 10 meq PO QDAY #1 tablet 08/24/17 Unknown Rx ED Review of Systems ROS: Stated complaint: ALTERED MENTAL STATUS Other details as noted in HPI Comment: Unobtainable due to pts medical conditions Physical Exam - Physical Exam Vital Signs: Vital Signs 08/29/17 08/29/17 10:17 10:27 Pulse Rate 65 66 Respiratory 13 11 L Rate Blood Pressure 87/41 80/41 Physical Exam: GENERAL: The patient is well-developed well-nourished []. [] HEENT: Normocephalic. Atraumatic. Pupils 3 mm and reactive bilaterally. Patient has moist mucous membranes. NECK: Supple. Trachea midline CHEST/LUNGS: Clear to auscultation. There is no respiratory distress noted. HEART/CARDIOVASCULAR: Regular. There is no tachycardia. There is no gallop rub or murmur. ABDOMEN: Abdomen is soft, nontender. Patient has normal bowel sounds. There is no abdominal distention. SKIN: There is no rash. There is no edema. There is no diaphoresis. NEURO: The patient is asleep but awakens to sternal rub and verbal stimuli. Patient localizes with hands when given a sternal rub MUSCULOSKELETAL: There is no evidence of acute injury. ED Course Vital Signs 08/29/17 08/29/17 10:17 10:27 Pulse Rate 65 66 Respiratory 13 11 L Rate Blood Pressure 87/41 80/41 ED Medical Decision Making - Lab Data Result diagrams: 08/29/17 11:34 08/29/17 11:34 Laboratory Tests 08/29/17 08/29/17 08/29/17 10:43 11:34 11:34 WBC 7.2 RBC 4.56 Hgb 12.7 Hct 35.7 MCV 78 L MCH 28 MCHC 36 H RDW 14.8 Plt Count 144 Lymph % (Auto) 32.7 [place] % (Auto) 9.9 H Eos % (Auto) 1.7 Baso % (Auto) 0.4 Lymph # 2.4 [place] # 0.7 Eos # 0.1 Baso # 0.0 Seg Neutrophils % 55.3 Seg Neutrophils # 4.0 PT INR APTT VBG pH Sodium 141 Potassium 3.4 L Chloride 101.9 Carbon Dioxide 27 Anion Gap 16 BUN 19 H Creatinine 0.9 Estimated GFR > 60 BUN/Creatinine Ratio 21 Glucose 130 H POC Glucose 183 H Lactic Acid Calcium 9.1 Magnesium 2.00 Total Bilirubin 0.30 AST 12 ALT 12 Alkaline Phosphatase 146 H Ammonia Total Creatine Kinase CK-MB (CK-2) CK-MB (CK-2) Rel Index Troponin T NT-Pro-B Natriuret Pep Total Protein 6.6 Albumin 3.2 L Albumin/Globulin Ratio 0.9 TSH Urine Color Urine Turbidity Urine pH Ur Specific [place] Urine Protein Urine Glucose (UA) Urine Ketones Urine Blood Urine Nitrite Urine Bilirubin Urine Urobilinogen Ur Leukocyte Esterase Urine WBC (Auto) Urine RBC (Auto) Hyaline Casts Urine Mucus Salicylates Urine Opiates Screen Urine Methadone Screen Acetaminophen Ur Barbiturates Screen Ur Phencyclidine Scrn Ur Amphetamines Screen U Benzodiazepines Scrn Urine Cocaine Screen U Marijuana (THC) Screen Drugs of Abuse Note Plasma/Serum Alcohol 08/29/17 08/29/17 08/29/17 11:34 11:34 11:34 WBC RBC Hgb Hct MCV MCH MCHC RDW Plt Count Lymph % (Auto) [place] % (Auto) Eos % (Auto) Baso % (Auto) Lymph # [place] # Eos # Baso # Seg Neutrophils % Seg Neutrophils # PT INR APTT VBG pH Sodium Potassium Chloride Carbon Dioxide Anion Gap BUN Creatinine Estimated GFR BUN/Creatinine Ratio Glucose POC Glucose Lactic Acid 1.40 Calcium Magnesium Total Bilirubin AST ALT Alkaline Phosphatase Ammonia Total Creatine Kinase CK-MB (CK-2) CK-MB (CK-2) Rel Index Troponin T NT-Pro-B Natriuret Pep Total Protein Albumin Albumin/Globulin Ratio TSH Urine Color Urine Turbidity Urine pH Ur Specific [place] Urine Protein Urine Glucose (UA) Urine Ketones Urine Blood Urine Nitrite Urine Bilirubin Urine Urobilinogen Ur Leukocyte Esterase Urine WBC (Auto) Urine RBC (Auto) Hyaline Casts Urine Mucus Salicylates < 0.3 L Urine Opiates Screen Urine Methadone Screen Acetaminophen < 15.0 Ur Barbiturates Screen Ur Phencyclidine Scrn Ur Amphetamines Screen U Benzodiazepines Scrn Urine Cocaine Screen U Marijuana (THC) Screen Drugs of Abuse Note Plasma/Serum Alcohol 08/29/17 08/29/17 08/29/17 11:34 11:34 11:34 WBC RBC Hgb Hct MCV MCH MCHC RDW Plt Count Lymph % (Auto) [place] % (Auto) Eos % (Auto) Baso % (Auto) Lymph # [place] # Eos # Baso # Seg Neutrophils % Seg Neutrophils # PT 14.0 INR 1.03 APTT 30.8 VBG pH Sodium Potassium Chloride Carbon Dioxide Anion Gap BUN Creatinine Estimated GFR BUN/Creatinine Ratio Glucose POC Glucose Lactic Acid Calcium Magnesium Total Bilirubin AST ALT Alkaline Phosphatase Ammonia Total Creatine Kinase 51 CK-MB (CK-2) 3.6 CK-MB (CK-2) Rel Index 7.0 H Troponin T < 0.010 NT-Pro-B Natriuret Pep 2526 H Total Protein Albumin Albumin/Globulin Ratio TSH Urine Color Urine Turbidity Urine pH Ur Specific [place] Urine Protein Urine Glucose (UA) Urine Ketones Urine Blood Urine Nitrite Urine Bilirubin Urine Urobilinogen Ur Leukocyte Esterase Urine WBC (Auto) Urine RBC (Auto) Hyaline Casts Urine Mucus Salicylates Urine Opiates Screen Urine Methadone Screen Acetaminophen Ur Barbiturates Screen Ur Phencyclidine Scrn Ur Amphetamines Screen U Benzodiazepines Scrn Urine Cocaine Screen U Marijuana (THC) Screen Drugs of Abuse Note Plasma/Serum Alcohol < 0.01 08/29/17 08/29/17 08/29/17 11:34 11:34 11:34 WBC RBC Hgb Hct MCV MCH MCHC RDW Plt Count Lymph % (Auto) [place] % (Auto) Eos % (Auto) Baso % (Auto) Lymph # [place] # Eos # Baso # Seg Neutrophils % Seg Neutrophils # PT INR APTT VBG pH 7.366 Sodium Potassium Chloride Carbon Dioxide Anion Gap BUN Creatinine Estimated GFR BUN/Creatinine Ratio Glucose POC Glucose Lactic Acid Calcium Magnesium Total Bilirubin AST ALT Alkaline Phosphatase Ammonia 25.0 Total Creatine Kinase CK-MB (CK-2) CK-MB (CK-2) Rel Index Troponin T NT-Pro-B Natriuret Pep Total Protein Albumin Albumin/Globulin Ratio TSH 1.040 Urine Color Urine Turbidity Urine pH Ur Specific [place] Urine Protein Urine Glucose (UA) Urine Ketones Urine Blood Urine Nitrite Urine Bilirubin Urine Urobilinogen Ur Leukocyte Esterase Urine WBC (Auto) Urine RBC (Auto) Hyaline Casts Urine Mucus Salicylates Urine Opiates Screen Urine Methadone Screen Acetaminophen Ur Barbiturates Screen Ur Phencyclidine Scrn Ur Amphetamines Screen U Benzodiazepines Scrn Urine Cocaine Screen U Marijuana (THC) Screen Drugs of Abuse Note Plasma/Serum Alcohol 08/29/17 08/29/17 12:01 12:01 WBC RBC Hgb Hct MCV MCH MCHC RDW Plt Count Lymph % (Auto) [place] % (Auto) Eos % (Auto) Baso % (Auto) Lymph # [place] # Eos # Baso # Seg Neutrophils % Seg Neutrophils # PT INR APTT VBG pH Sodium Potassium Chloride Carbon Dioxide Anion Gap BUN Creatinine Estimated GFR BUN/Creatinine Ratio Glucose POC Glucose Lactic Acid Calcium Magnesium Total Bilirubin AST ALT Alkaline Phosphatase Ammonia Total Creatine Kinase CK-MB (CK-2) CK-MB (CK-2) Rel Index Troponin T NT-Pro-B Natriuret Pep Total Protein Albumin Albumin/Globulin Ratio TSH Urine Color Yellow Urine Turbidity Clear Urine pH 5.0 Ur Specific [place] 1.006 Urine Protein <15 mg/dl Urine Glucose (UA) Neg Urine Ketones Neg Urine Blood Neg Urine Nitrite Neg Urine Bilirubin Neg Urine Urobilinogen < 2.0 Ur Leukocyte Esterase Neg Urine WBC (Auto) < 1.0 Urine RBC (Auto) < 1.0 Hyaline Casts 1 Urine Mucus Few Salicylates Urine Opiates Screen Presumptive negative Urine Methadone Screen Presumptive negative Acetaminophen Ur Barbiturates Screen Presumptive negative Ur Phencyclidine Scrn Presumptive negative Ur Amphetamines Screen Presumptive negative U Benzodiazepines Scrn Presumptive negative Urine Cocaine Screen Presumptive negative U Marijuana (THC) Screen Presumptive negative Drugs of Abuse Note Disclamer Plasma/Serum Alcohol - EKG Data -: EKG Interpreted by Mt EKG shows normal: sinus rhythm Rate: normal - EKG Data When compared to previous EKG there are: no significant change Interpretation: unchanged when compared t (03/13/2017), nonspecific ST-T wave dane (T-wave inversions in leads 1, 2, aVL, V3, V4, V5, V6) - Radiology Data Radiology results: report reviewed (CT head), image reviewed (CT head) CT head (read by radiologist)-no acute intracranial process is identified. - Differential Diagnosis ICH, polypharmacy, narcotic overdose, DKA Critical care attestation.: If time is entered above; I have spent that time in minutes in the direct care of this critically ill patient, excluding procedure time. ED Disposition Clinical Impression: Altered mental status Disposition: [id number] OP ADMIT IP TO THIS HOSP Is pt being admited?: Yes Does the pt Need Aspirin: Yes Condition: Fair Time of Disposition: 13:02 (hospitalist paged)
--- NOTE | 2017-08-29 11:20 | Cat Scan Report ---
CT HEAD WITHOUT CONTRAST: HISTORY: Altered mental status. Serial contiguous axial images were obtained through the cranium. Intravenous contrast material was not administered. No significant change is demonstrated since 03/13/17. Mild diffuse volume loss and chronic white matter changes are stable. Chronic lacunar infarct in the left [place] and chronic cortical infarct in the right parietal lobe are stable. No evidence for hemorrhage, mass or large area of acute ischemia. Ventricular size remains within normal limits. The mastoid air cells and visualized portions of the sinuses are normal. IMPRESSION: No acute intracranial process is identified. Chronic findings as outlined above which appear stable since 03/13/17.
[2017-08-29 12:12] LABS: Basophils % (Auto) 0.4 % (0.0-1.8); Eosinophils % (Auto) 1.7 % (0.0-4.3); Hematocrit 35.7 % (30.3-42.9); Hemoglobin 12.7 gm/dl (10.1-14.3); Mean Corpuscular HGB Conc 36 % (30-34); Mean Corpuscular Hemoglobin 28 pg (28-32); Mean Corpuscular Volume 78 fl (79-97); Platelet Count 144 K/mm3 (140-440); Red Blood Count 4.56 M/mm3 (3.65-5.03); Red Cell Distribution Width 14.8 % (13.2-15.2); White Blood Count 7.2 K/mm3 (4.5-11.0)
[2017-08-29 12:15] LABS: Creatine Kinase MB 3.6 ng/mL (0.0-4.0)
[2017-08-29 12:16] LABS: Alanine Aminotransferase 12 units/L (7-56); Albumin 3.2 g/dL (3.9-5); Albumin/Globulin Ratio 0.9 %; Alkaline Phosphatase 146 units/L (35-129); Anion Gap 16 mmol/L; BUN/Creatinine Ratio 21; Blood Urea Nitrogen 19 mg/dL (7-17); Calcium 9.1 mg/dL (8.4-10.2); Carbon Dioxide 27 mmol/L (22-30); Chloride 101.9 mmol/L (98-107); Glucose 130 mg/dL (65-100); Potassium 3.4 mmol/L (3.6-5.0); Sodium 141 mmol/L (137-145); Total Protein 6.6 g/dL (6.3-8.2)
[2017-08-29 12:18] LABS: Creatine Kinase 51 units/L (30-135)
[2017-08-29 12:25] LABS: INR 1.03 (0.87-1.13)
[2017-08-29 12:26] LABS: Partial Thromboplastin Time 30.8 Sec. (24.2-36.6)
[2017-08-29 12:39] LABS: Urine Drugs of Abuse Note Disclamer
[2017-08-29 12:50] LABS: Bilirubin,Urine NEG (Negative); Blood,Urine NEG (Negative); Ketones,Urine NEG (Negative); Leukocyte Esterase,Urine NEG (Negative); Mucus,Urine FEW /HPF; Nitrite,Urine NEG (Negative); Protein,Urine <15 mg/dL mg/dL (Negative); RBC,Urine < 1.0 /HPF (0.0-6.0); Urobilinogen,Urine < 2.0 mg/dL (<2.0); WBC,Urine < 1.0 /HPF (0.0-6.0)
[2017-08-29] MEDS ORDERED: NACL 0.9% 1000 ML 1,000 ML IV ONE (12:54)
[2017-08-29] MEDS ORDERED: ASPIRIN PR ONE (13:03)
--- NOTE | 2017-08-29 17:09 | History and Physical Report ---
History of Present Illness Date of examination: 08/29/17 Date of admission: 08/29/17 13:06 Chief complaint: CC AMS since AM History of present illness: [place]: The patient is a 67-year-old female brought in by EMS with a chief complaint of altered mental status. Per EMS the patient is a resident at an assisted living facility and the personnel at the facility were concerned she may have taken too much morphine. Facility called EMS secondary to the patient having decreased responsiveness. EMS states they administered 2 mg of Narcan IV with some improvement. The patient does arouse to sternal rub the sensation feels "okay" when asked. The patient then falls back to sleep.Became more alert and oriented in the ER and was answering questions appropriately albeit a bit slowly. Past Medical History Hx Hypertension: Yes Hx Congestive Heart Failure: Yes Hx Diabetes: Yes Hx Asthma: Yes Hx COPD: Yes Additional medical history: chronic back pain - Family History Family history: no significant - Social History Smoking Status: Unknown if ever smoked Surg hx - N/a - Medications Home Medications: Home Medications Medication Instructions Recorded Confirmed Last Taken Type Simvastatin [Zocor TAB] 40 mg PO QHS 01/18/17 08/22/17 03/13/17 History cloNIDine [Catapres] 0.4 mg PO DAILY 01/18/17 08/22/17 03/13/17 History Felodipine [Felodipine ER] 10 mg PO DAILY 08/22/17 08/22/17 Unknown History Metformin HCl [Glucophage] 500 mg PO BIDWM 08/22/17 08/22/17 Unknown History Metolazone 5 mg PO DAILY 08/22/17 08/22/17 Unknown History Morphine ER [Ms Contin ER] 15 mg PO BID 08/22/17 08/22/17 Unknown History Carvedilol [Coreg] 25 mg PO BIDDIAB #60 tablet 08/24/17 Unknown Rx Clopidogrel [Plavix] 75 mg PO QDAY #30 tablet 08/24/17 Unknown Rx Furosemide [Lasix TAB] 40 mg PO QDAY #30 tablet 08/24/17 Unknown Rx Insulin NPH/Regular [NovoLIN 70/30] 15 unit SUB-Q BIDDIAB 30 Days 08/24/17 Unknown Rx Lisinopril [Zestril TAB] 10 mg PO DAILY #30 tablet 08/24/17 Unknown Rx Potassium Chloride [K-Dur] 10 meq PO QDAY #1 tablet 08/24/17 Unknown Rx Review of Systems Stated complaint: ALTERED MENTAL STATUS Other details as noted in HPI Comment: Unobtainable due to pts medical condit Medications and Allergies Allergies Allergy/AdvReac Type Severity Reaction Status Date / Time No Known Allergies Allergy Verified 08/22/17 06:10 Home Medications Medication Instructions Recorded Confirmed Last Taken Type cloNIDine [Catapres] 0.4 mg PO DAILY 01/18/17 08/29/17 03/13/17 History Felodipine [Felodipine ER] 10 mg PO DAILY 08/22/17 08/29/17 Unknown History Metformin HCl [Glucophage] 500 mg PO BIDWM 08/22/17 08/29/17 Unknown History Metolazone 5 mg PO DAILY 08/22/17 08/29/17 Unknown History Morphine ER [Ms Contin ER] 15 mg PO BID 08/22/17 08/29/17 Unknown History Carvedilol [Coreg] 25 mg PO BIDDIAB #60 tablet 08/24/17 08/29/17 Unknown Rx Clopidogrel [Plavix] 75 mg PO QDAY #30 tablet 08/24/17 08/29/17 Unknown Rx Furosemide [Lasix TAB] 40 mg PO QDAY #30 tablet 08/24/17 08/29/17 Unknown Rx Insulin NPH/Regular [NovoLIN 70/30] 15 unit SUB-Q BIDDIAB 30 Days 08/24/1708/29 Unknown Rx Lisinopril [Zestril TAB] 10 mg PO DAILY #30 tablet 08/24/17 08/29/17 Unknown Rx Potassium Chloride [K-Dur] 10 meq PO QDAY #1 tablet 08/24/17 08/29/17 Unknown Rx methOCARBAMOL [Robaxin TAB] 500 mg PO Q4-6H 08/29/17 08/29/17 Unknown History Exam - Constitutional Vitals: Temp Pulse Resp BP Pulse Ox 97.7 F 51 L 16 101/57 92 08/29/17 16:32 08/29/17 16:32 08/29/17 16:32 08/29/17 16:32 08/29/17 16:32 General appearance: Present: no acute distress, well-nourished - EENT Eyes: Present: PERRL ENT: hearing intact, clear oral mucosa - Neck Neck: Present: supple, normal ROM - Respiratory Respiratory effort: normal Respiratory: bilateral: CTA - Cardiovascular Heart rate: 76 Rhythm: regular Heart Sounds: Present: S1 & S2. Absent: rub, click - Extremities Extremities: no ischemia, pulses intact, pulses symmetrical, No edema Peripheral Pulses: within normal limits - Abdominal General gastrointestinal: Present: soft, non-tender, non-distended, normal bowel sounds Female genitourinary: Present: normal - Integumentary Integumentary: Present: clear, warm, dry - Musculoskeletal Musculoskeletal: gait normal, strength equal bilaterally - Psychiatric Psychiatric: cooperative, other (Lethargic) - Neurologic Neurologic: CNII-XII intact, moves all extremities Results - Labs CBC & Chem 7: 08/29/17 11:34 08/29/17 11:34 Labs: Laboratory Last Values WBC 7.2 K/mm3 (4.5-11.0) 08/29/17 11:34 RBC 4.56 M/mm3 (3.65-5.03) 08/29/17 11:34 Hgb 12.7 gm/dl (10.1-14.3) 08/29/17 11:34 Hct 35.7 % (30.3-42.9) 08/29/17 11:34 MCV 78 fl (79-97) L 08/29/17 11:34 MCH 28 pg (28-32) 08/29/17 11:34 MCHC 36 % (30-34) H 08/29/17 11:34 RDW 14.8 % (13.2-15.2) 08/29/17 11:34 Plt Count 144 K/mm3 (140-440) 08/29/17 11:34 Lymph % (Auto) 32.7 % (13.4-35.0) 08/29/17 11:34 [place] % (Auto) 9.9 % (0.0-7.3) H 08/29/17 11:34 Eos % (Auto) 1.7 % (0.0-4.3) 08/29/17 11:34 Baso % (Auto) 0.4 % (0.0-1.8) 08/29/17 11:34 Lymph # 2.4 K/mm3 (1.2-5.4) 08/29/17 11:34 [place] # 0.7 K/mm3 (0.0-0.8) 08/29/17 11:34 Eos # 0.1 K/mm3 (0.0-0.4) 08/29/17 11:34 Baso # 0.0 K/mm3 (0.0-0.1) 08/29/17 11:34 Seg Neutrophils % 55.3 % (40.0-70.0) 08/29/17 11:34 Seg Neutrophils # 4.0 K/mm3 (1.8-7.7) 08/29/17 11:34 PT 14.0 Sec. (12.2-14.9) 08/29/17 11:34 INR 1.03 (0.87-1.13) 08/29/17 11:34 APTT 30.8 Sec. (24.2-36.6) 08/29/17 11:34 VBG pH 7.366 (7.320-7.420) 08/29/17 11:34 Sodium 141 mmol/L (137-145) 08/29/17 11:34 Potassium 3.4 mmol/L (3.6-5.0) L 08/29/17 11:34 Chloride 101.9 mmol/L (98-107) 08/29/17 11:34 Carbon Dioxide 27 mmol/L (22-30) 08/29/17 11:34 Anion Gap 16 mmol/L 08/29/17 11:34 BUN 19 mg/dL (7-17) H 08/29/17 11:34 Creatinine 0.9 mg/dL (0.7-1.2) 08/29/17 11:34 Estimated GFR > 60 ml/min 08/29/17 11:34 BUN/Creatinine Ratio 21 % 08/29/17 11:34 Glucose 130 mg/dL (65-100) H 08/29/17 11:34 POC Glucose 183 (70-105) H 08/29/17 10:43 Lactic Acid 1.30 mmol/L (0.7-2.0) 08/29/17 12:59 Calcium 9.1 mg/dL (8.4-10.2) 08/29/17 11:34 Magnesium 2.00 mg/dL (1.7-2.3) 08/29/17 11:34 Total Bilirubin 0.30 mg/dL (0.1-1.2) 08/29/17 11:34 AST 12 units/L (5-40) 08/29/17 11:34 ALT 12 units/L (7-56) 08/29/17 11:34 Alkaline Phosphatase 146 units/L (35-129) H 08/29/17 11:34 Ammonia 25.0 umol/L (25-60) 08/29/17 11:34 Total Creatine Kinase 51 units/L (30-135) 08/29/17 11:34 CK-MB (CK-2) 3.6 ng/mL (0.0-4.0) 08/29/17 11:34 CK-MB (CK-2) Rel Index 7.0 (0-4) H 08/29/17 11:34 Troponin T < 0.010 ng/mL (0.00-0.029) 08/29/17 11:34 NT-Pro-B Natriuret Pep 2526 pg/mL (0-900) H 08/29/17 11:34 Total Protein 6.6 g/dL (6.3-8.2) 08/29/17 11:34 Albumin 3.2 g/dL (3.9-5) L 08/29/17 11:34 Albumin/Globulin Ratio 0.9 % 08/29/17 11:34 TSH 1.040 mlU/mL (0.270-4.200) 08/29/17 11:34 Free T4 1.33 ng/dL (0.76-1.46) 08/29/17 11:34 Urine Color Yellow (Yellow) 08/29/17 12:01 Urine Turbidity Clear (Clear) 08/29/17 12:01 Urine pH 5.0 (5.0-7.0) 08/29/17 12:01 Ur Specific [place] 1.006 (1.003-1.030) 08/29/17 12:01 Urine Protein <15 mg/dl mg/dL (Negative) 08/29/17 12:01 Urine Glucose (UA) Neg mg/dL (Negative) 08/29/17 12:01 Urine Ketones Neg mg/dL (Negative) 08/29/17 12:01 Urine Blood Neg (Negative) 08/29/17 12:01 Urine Nitrite Neg (Negative) 08/29/17 12:01 Urine Bilirubin Neg (Negative) 08/29/17 12:01 Urine Urobilinogen < 2.0 mg/dL (<2.0) 08/29/17 12:01 Ur Leukocyte Esterase Neg (Negative) 08/29/17 12:01 Urine WBC (Auto) < 1.0 /HPF (0.0-6.0) 08/29/17 12:01 Urine RBC (Auto) < 1.0 /HPF (0.0-6.0) 08/29/17 12:01 Hyaline Casts 1 /LPF 08/29/17 12:01 Urine Mucus Few /HPF 08/29/17 12:01 Salicylates < 0.3 mg/dL (2.8-20.0) L 08/29/17 11:34 Urine Opiates Screen Presumptive negative 08/29/17 12:01 Urine Methadone Screen Presumptive negative 08/29/17 12:01 Acetaminophen < 15.0 ug/mL (10.0-30.0) 08/29/17 11:34 Ur Barbiturates Screen Presumptive negative 08/29/17 12:01 Ur Phencyclidine Scrn Presumptive negative 08/29/17 12:01 Ur Amphetamines Screen Presumptive negative 08/29/17 12:01 U Benzodiazepines Scrn Presumptive negative 08/29/17 12:01 Urine Cocaine Screen Presumptive negative 08/29/17 12:01 U Marijuana (THC) Screen Presumptive negative 08/29/17 12:01 Drugs of Abuse Note Disclamer 08/29/17 12:01 Plasma/Serum Alcohol < 0.01 gm% (0-0.07) 08/29/17 11:34 Short CBC 08/29/17 Range/Units 11:34 WBC 7.2 (4.5-11.0) K/mm3 Hgb 12.7 (10.1-14.3) gm/dl Hct 35.7 (30.3-42.9) % Plt Count 144 (140-440) K/mm3 BMP 08/29/17 11:34 Sodium 141 Potassium 3.4 L Chloride 101.9 Carbon Dioxide 27 BUN 19 H Creatinine 0.9 Glucose 130 H Calcium 9.1 Cardiac Enzymes 08/29/17 Range/Units 11:34 Total Creatine Kinase 51 (30-135) units/L CK-MB (CK-2) 3.6 (0.0-4.0) ng/mL Troponin T < 0.010 (0.00-0.029) ng/mL Liver Function 08/29/17 Range/Units 11:34 Total Bilirubin 0.30 (0.1-1.2) mg/dL AST 12 (5-40) units/L ALT 12 (7-56) units/L Alkaline Phosphatase 146 H (35-129) units/L Albumin 3.2 L (3.9-5) g/dL Urine 08/29/17 Range/Units 12:01 Urine Color Yellow (Yellow) Urine pH 5.0 (5.0-7.0) Ur Specific [place] 1.006 (1.003-1.030) Urine Protein <15 mg/dl (Negative) mg/dL Urine Glucose (UA) Neg (Negative) mg/dL - Imaging and Cardiology EKG: report reviewed (NSR no acute changes) Assessment and Plan Advance Directives: Yes (Full code ) VTE prophylaxis?: Chemical Plan of care discussed with patient/family: Yes - Patient Problems (1) Encephalopathy acute Current Visit: Yes Status: Acute Plan to address problem: Sec to Morphine IV NS for now Will change her Morphine dosage to Oxycodone at lower doses (2) HTN (hypertension) Current Visit: Yes Status: Chronic Qualifiers: Hypertension type: essential hypertension Qualified Code(s): I10 - Essential (primary) hypertension (3) T2DM (type 2 diabetes mellitus) Current Visit: Yes Status: Chronic Qualifiers: Diabetes mellitus complication status: without complication Diabetes mellitus complication detail: D Diabetic retinopathy severity: D Proliferative retinopathy type: P Diabetes mellitus macular edema: D Diabetes mellitus intermodal dispatcher insulin use: D Laterality: L Chronic kidney disease stage: C Plan to address problem: coverage for now (4) CHF (congestive heart failure) Current Visit: Yes Status: Chronic Qualifiers: Congestive heart failure type: combined Congestive heart failure chronicity : chronic Qualified Code(s): I50.42 - Chronic combined systolic (congestive) and diastolic (congestive) heart failure Plan to address problem: Cont Diuretics (5) Hypokalemia Current Visit: Yes Status: Acute Plan to address problem: Supplemented (6) CAD (coronary artery disease) Current Visit: Yes Status: Chronic Qualifiers: Coronary Disease-Associated Artery/Lesion type: [place] artery [place] vs. transplanted heart: [place] heart Associated angina: without angina Qualified Code(s): I25.10 - Atherosclerotic heart disease of [place] coronary artery without angina pectoris (7) DVT prophylaxis Current Visit: Yes Status: Acute Plan to address problem: On Lovenox
[2017-08-29] MEDS ORDERED: DULCOLAX PR PRN (17:10)
[2017-08-29] MEDS ORDERED: ZOFRAN IV PRN (17:10)
[2017-08-29] MEDS ORDERED: PERCOCET 5/325 PO PRN (17:10)
[2017-08-29] MEDS ORDERED: TYLENOL PO PRN (17:10)
[2017-08-29] MEDS ORDERED: AMBIEN PO PRN (17:10)
[2017-08-29] MEDS ORDERED: MILK OF MAGNESIA PO PRN (17:10)
[2017-08-29] MEDS: D5NS 1,000 ML IV SCH (18:03)
[2017-08-29] MEDS: GLUCOPHAGE PO SCH (18:03)
[2017-08-29] MEDS: K-DUR PO SCH (18:03)
[2017-08-29] MEDS ORDERED: D50W (25GM) Syringe IV PRN (18:04)
[2017-08-29] MEDS: ROBAXIN PO SCH (18:38)
[2017-08-29] MEDS ORDERED: HABITROL TD SCH (20:00)
[2017-08-29] MEDS ORDERED: MS CONTIN ER PO SCH (22:00)
[2017-08-29] MEDS: PEPCID IV SCH (23:01)
[2017-08-30] MEDS: ROBAXIN PO SCH ×3 (00:23→12:50)
[2017-08-30] MEDS: D5NS 1,000 ML IV SCH (06:51)
[2017-08-30] MEDS ORDERED: COREG PO SCH (08:00)
[2017-08-30] MEDS: PEPCID IV SCH (09:16)
[2017-08-30] MEDS: GLUCOPHAGE PO SCH (09:17)
[2017-08-30] MEDS: K-DUR PO SCH (09:17)
[2017-08-30 09:20] LABS: Basophils % (Auto) 0.4 % (0.0-1.8); Eosinophils % (Auto) 1.8 % (0.0-4.3); Hematocrit 39.2 % (30.3-42.9); Hemoglobin 13.3 gm/dl (10.1-14.3); Mean Corpuscular HGB Conc 34 % (30-34); Mean Corpuscular Hemoglobin 27 pg (28-32); Mean Corpuscular Volume 80 fl (79-97); Red Blood Count 4.87 M/mm3 (3.65-5.03); White Blood Count 8.7 K/mm3 (4.5-11.0)
[2017-08-30 09:47] LABS: Alanine Aminotransferase 12 units/L (7-56); Albumin 3.4 g/dL (3.9-5); Alkaline Phosphatase 147 units/L (35-129); Anion Gap 17 mmol/L; BUN/Creatinine Ratio 20; Blood Urea Nitrogen 20 mg/dL (7-17); Carbon Dioxide 25 mmol/L (22-30); Chloride 104.1 mmol/L (98-107); Glucose 134 mg/dL (65-100); Potassium 4.1 mmol/L (3.6-5.0); Sodium 142 mmol/L (137-145); Total Protein 6.8 g/dL (6.3-8.2)
[2017-08-30] MEDS ORDERED: NORVASC PO SCH (10:00)
[2017-08-30] MEDS ORDERED: ZESTRIL PO SCH (10:00)
[2017-08-30] MEDS ORDERED: LASIX PO SCH (10:00)
[2017-08-30] MEDS ORDERED: CATAPRES PO SCH (10:00)
[2017-08-30] MEDS ORDERED: FELODIPINE 10 MG PO SCH (10:00)
[2017-08-30] MEDS ORDERED: ZAROXOLYN PO SCH (10:00)
[2017-08-30] MEDS ORDERED: PLAVIX PO SCH (10:00)
[2017-08-30 10:09] LABS: Platelet Count 185 K/mm3 (140-440)
--- NOTE | 2017-08-30 15:17 | Discharge Summary ---
Providers - Providers Date of Admission: 08/29/17 13:06 Date of discharge: 08/30/17 Attending physician: JOHANNY CARTER 08/30/17 11:49 Physical Therapy Evaluation and Treat [CONS] Urgent Comment: Reason For Exam: PT eval for discharge planning. Primary care physician: FILAMENT SHAPER Hospitalization Condition: Fair Disposition: DC-01 TO HOME OR SELFCARE - Discharge Diagnoses (1) Encephalopathy acute Status: Acute (2) HTN (hypertension) Status: Chronic Qualifiers: Hypertension type: essential hypertension Qualified Code(s): I10 - Essential (primary) hypertension (3) T2DM (type 2 diabetes mellitus) Status: Chronic Qualifiers: Diabetes mellitus complication status: without complication Diabetes mellitus complication detail: D Diabetic retinopathy severity: D Proliferative retinopathy type: P Diabetes mellitus macular edema: D Diabetes mellitus fpc insulin use: D Laterality: L Chronic kidney disease stage: C (4) CHF (congestive heart failure) Status: Chronic Qualifiers: Congestive heart failure type: combined Congestive heart failure chronicity : chronic Qualified Code(s): I50.42 - Chronic combined systolic (congestive) and diastolic (congestive) heart failure (5) Hypokalemia Status: Acute (6) CAD (coronary artery disease) Status: Chronic Qualifiers: Coronary Disease-Associated Artery/Lesion type: [place] artery [place] vs. transplanted heart: [place] heart Associated angina: without angina Qualified Code(s): I25.10 - Atherosclerotic heart disease of [place] coronary artery without angina pectoris (7) DVT prophylaxis Status: Acute Core Measure Documentation - Palliative Care Palliative Care/ Comfort Measures: Not Applicable - Core Measures Any of the following diagnoses?: none Exam - Constitutional Vitals: Temp Pulse Resp BP Pulse Ox 98.5 F 77 22 158/100 100 08/30/17 12:17 08/30/17 12:50 08/30/17 12:17 08/30/17 12:50 08/30/17 12:17 General appearance: Present: no acute distress, well-nourished - EENT Eyes: Present: PERRL ENT: hearing intact, clear oral mucosa - Neck Neck: Present: supple, normal ROM - Respiratory Respiratory effort: normal Respiratory: bilateral: CTA - Cardiovascular Heart Sounds: Present: S1 & S2. Absent: rub, click - Extremities Extremities: pulses symmetrical, No edema Peripheral Pulses: within normal limits - Abdominal General gastrointestinal: Present: soft, non-tender, non-distended, normal bowel sounds Female genitourinary: Present: normal - Integumentary Integumentary: Present: clear, warm, dry - Musculoskeletal Musculoskeletal: gait normal, strength equal bilaterally - Psychiatric Psychiatric: appropriate mood/affect, intact judgment & insight - Neurologic Neurologic: CNII-XII intact, moves all extremities Plan Activity: no restrictions Diet: low fat, low cholesterol Follow up with: PRIMARY CARE, [Primary Care Provider] - 3-5 Days
[2017-08-30 16:02] VITALS: BP 156/94
[2017-08-30] MEDS ORDERED: PEPCID PO SCH (22:00)
== END 2017-08-30 16:24 | disposition home or self-care (01) | DRG 71 ==
LOC: ED 10:09 → 3A 13:06
PROVIDERS: ADMIT Internal Medicine; ATTEND Internal Medicine
DX: G93.40 Encephalopathy, unspecified (principal); I50.42 Chronic combined systolic (congestive) and diastolic (congestive) heart failure; E87.6 Hypokalemia; I25.10 Atherosclerotic heart disease of native coronary artery without angina pectoris; E11.9 Type 2 diabetes mellitus without complications; I11.0 Hypertensive heart disease with heart failure; J44.9 Chronic obstructive pulmonary disease, unspecified; M54.9 Dorsalgia, unspecified; G89.29 Other chronic pain
CPT/HCPCS: 36415; 70450; 80053; 80307; 80320; 81001; 82140; 82550; 82553; 82805; 82962; 83735; 83880; 84439; 84443; 84484; 85025; 85610; 85730; 87040; 93005; 93010; G0480; J1815; J7030; J7042

== ENCOUNTER 2017-09-26 09:07 | Emergency (ER) | payer MEDICARE ==
[2017-09-26 09:52] LABS: Basophils % (Auto) 0.5 % (0.0-1.8); Eosinophils % (Auto) 0.5 % (0.0-4.3); Hematocrit 41.5 % (30.3-42.9); Hemoglobin 14.2 gm/dl (10.1-14.3); Mean Corpuscular HGB Conc 34 % (30-34); Mean Corpuscular Hemoglobin 27 pg (28-32); Mean Corpuscular Volume 79 fl (79-97); Platelet Count 175 K/mm3 (140-440); Red Blood Count 5.25 M/mm3 (3.65-5.03); Red Cell Distribution Width 15.4 % (13.2-15.2); White Blood Count 8.6 K/mm3 (4.5-11.0)
[2017-09-26 10:47] LABS: Calcium 9.6 mg/dL (8.4-10.2); Chloride 103.4 mmol/L (98-107); Potassium 4.7 mmol/L (3.6-5.0)
--- NOTE | 2017-09-26 10:56 | Emergency Department Report ---
ED General Adult HPI - General Chief complaint: Hypoglycemia Stated complaint: LOW BLOOD SUGAR Time Seen by Provider: 09/26/17 10:25 Source: EMS Mode of arrival: Stretcher Limitations: No Limitations - History of Present Illness Initial comments: She is a 67-year-old female past no history of diabetes who presents with hypoglycemia. Patient states that she took some insulin today and her blood sugar was low. She was acting confused and her called EMS. Patient is alert and oriented 3. She keeps on saying "I do not want to be here." Patient 's blood glucose was 43 on arrival. Patient denies having any pain or shortness of breath patient spit out oral glucose. Patient denies having any chest pain any nausea or any abdominal pain. Patient denies having any fevers. - Related Data Home Medications Medication Instructions Recorded Confirmed Last Taken cloNIDine [Catapres] 0.4 mg PO DAILY 01/18/17 09/10/17 03/13/17 Felodipine [Felodipine ER] 10 mg PO DAILY 08/22/17 09/10/17 Unknown Morphine ER [Ms Contin ER] 15 mg PO BID 08/22/17 09/10/17 Unknown Previous Rx's Medication Instructions Recorded Last Taken Type Carvedilol [Coreg] 25 mg PO BIDDIAB #60 tablet 08/24/17 Unknown Rx Clopidogrel [Plavix] 75 mg PO QDAY #30 tablet 08/24/17 Unknown Rx Furosemide [Lasix TAB] 40 mg PO QDAY #30 tablet 08/24/17 Unknown Rx Insulin NPH/Regular [NovoLIN 70/30] 15 unit SUB-Q BIDDIAB 30 Days 08/24/17 Unknown Rx units Lisinopril [Zestril TAB] 10 mg PO DAILY #30 tablet 08/24/17 Unknown Rx Potassium Chloride [K-Dur] 10 meq PO QDAY #1 tablet 08/24/17 Unknown Rx Famotidine [Pepcid] 20 mg PO BID tablet 08/30/17 Unknown Rx Insulin NPH/Regular [NovoLIN 70/30] 15 unit SUB-Q BIDDIAB units 08/30/17 Unknown Rx Metolazone [Zaroxolyn] 5 mg PO DAILY tablet 08/30/17 Unknown Rx amLODIPine [Norvasc] 10 mg PO DAILY tablet 08/30/17 Unknown Rx cloNIDine [Catapres] 0.4 mg PO DAILY tablet 08/30/17 Unknown Rx metFORMIN [Glucophage] 500 mg PO BIDDIAB tablet 08/30/17 Unknown Rx methOCARBAMOL [Robaxin TAB] 500 mg PO Q6HR tablet 08/30/17 Unknown Rx Allergies Allergy/AdvReac Type Severity Reaction Status Date / Time No Known Allergies Allergy Verified 08/22/17 06:10 ED Review of Systems ROS: Stated complaint: LOW BLOOD SUGAR Other details as noted in HPI Constitutional: denies: chills, fever Eyes: denies: eye pain, eye discharge, vision change ENT: denies: ear pain, throat pain Respiratory: denies: cough, shortness of breath, wheezing Cardiovascular: denies: chest pain, palpitations Endocrine: no symptoms reported Gastrointestinal: denies: abdominal pain, nausea, diarrhea Genitourinary: denies: urgency, dysuria, discharge Musculoskeletal: denies: back pain, joint swelling, arthralgia Skin: denies: rash, lesions Neurological: weakness. denies: headache, paresthesias Psychiatric: denies: anxiety, depression Hematological/Lymphatic: denies: easy bleeding, easy bruising ED Past Medical Hx - Past Medical History Hx Hypertension: Yes Hx Congestive Heart Failure: Yes Hx Diabetes: Yes Hx Arthritis: Yes Hx Asthma: Yes Hx COPD: Yes Hx HIV: No Additional medical history: chronic back pain - Surgical History Additional Surgical History: Right foot surgery - Social History Smoking Status: Unknown if ever smoked - Medications Home Medications: Home Medications Medication Instructions Recorded Confirmed Last Taken Type cloNIDine [Catapres] 0.4 mg PO DAILY 01/18/17 09/10/17 03/13/17 History Felodipine [Felodipine ER] 10 mg PO DAILY 08/22/17 09/10/17 Unknown History Morphine ER [Ms Contin ER] 15 mg PO BID 08/22/17 09/10/17 Unknown History Carvedilol [Coreg] 25 mg PO BIDDIAB #60 tablet 08/24/17 09/10/17 Unknown Rx Clopidogrel [Plavix] 75 mg PO QDAY #30 tablet 08/24/17 09/10/17 Unknown Rx Furosemide [Lasix TAB] 40 mg PO QDAY #30 tablet 08/24/17 09/10/17 Unknown Rx Insulin NPH/Regular [NovoLIN 70/30] 15 unit SUB-Q BIDDIAB 30 Days 08/24/1709/10 Unknown Rx units Lisinopril [Zestril TAB] 10 mg PO DAILY #30 tablet 08/24/17 09/10/17 Unknown Rx Potassium Chloride [K-Dur] 10 meq PO QDAY #1 tablet 08/24/17 09/10/17 Unknown Rx Famotidine [Pepcid] 20 mg PO BID tablet 08/30/17 09/10/17 Unknown Rx Insulin NPH/Regular [NovoLIN 70/30] 15 unit SUB-Q BIDDIAB units 08/30/17 Unknown Rx Metolazone [Zaroxolyn] 5 mg PO DAILY tablet 08/30/17 09/10/17 Unknown Rx amLODIPine [Norvasc] 10 mg PO DAILY tablet 08/30/17 09/10/17 Unknown Rx cloNIDine [Catapres] 0.4 mg PO DAILY tablet 08/30/17 09/10/17 Unknown Rx metFORMIN [Glucophage] 500 mg PO BIDDIAB tablet 08/30/17 09/10/17 Unknown Rx methOCARBAMOL [Robaxin TAB] 500 mg PO Q6HR tablet 08/30/17 09/10/17 Unknown Rx ED Physical Exam - General Limitations: No Limitations General appearance: alert, in no apparent distress - Head Head exam: Present: atraumatic, normocephalic - Eye Eye exam: Present: normal appearance - ENT ENT exam: Present: mucous membranes moist - Neck Neck exam: Present: normal inspection - Respiratory Respiratory exam: Present: normal lung sounds bilaterally. Absent: respiratory distress - Cardiovascular Cardiovascular Exam: Present: regular rate, normal rhythm. Absent: systolic murmur, diastolic murmur, rubs, gallop - GI/Abdominal GI/Abdominal exam: Present: soft, normal bowel sounds - Extremities Exam Extremities exam: Present: normal inspection - Back Exam Back exam: Present: normal inspection - Neurological Exam Neurological exam: Present: alert, oriented X3 - Psychiatric Psychiatric exam: Present: normal affect, normal mood - Skin Skin exam: Present: warm, dry, intact, normal color. Absent: rash ED Medical Decision Making - Lab Data Result diagrams: 09/26/17 09:31 09/26/17 09:31 Lab Results 09/26/17 09/26/17 09/26/17 Range/Units 09:16 09:31 09:31 WBC 8.6 (4.5-11.0) K/mm3 RBC 5.25 H (3.65-5.03) M/mm3 Hgb 14.2 (10.1-14.3) gm/dl Hct 41.5 (30.3-42.9) % MCV 79 (79-97) fl MCH 27 L (28-32) pg MCHC 34 (30-34) % RDW 15.4 H (13.2-15.2) % Plt Count 175 (140-440) K/mm3 Lymph % (Auto) 16.8 (13.4-35.0) % [place] % (Auto) 7.7 H (0.0-7.3) % Eos % (Auto) 0.5 (0.0-4.3) % Baso % (Auto) 0.5 (0.0-1.8) % Lymph # 1.4 (1.2-5.4) K/mm3 [place] # 0.7 (0.0-0.8) K/mm3 Eos # 0.0 (0.0-0.4) K/mm3 Baso # 0.0 (0.0-0.1) K/mm3 Seg Neutrophils % 74.5 H (40.0-70.0) % Seg Neutrophils # 6.4 (1.8-7.7) K/mm3 Sodium 145 (137-145) mmol/L Potassium 4.7 (3.6-5.0) mmol/L Chloride 103.4 (98-107) mmol/L Carbon Dioxide 24 (22-30) mmol/L Anion Gap 22 mmol/L BUN 30 H (7-17) mg/dL Creatinine 1.1 (0.7-1.2) mg/dL Estimated GFR 60 ml/min BUN/Creatinine Ratio 27 % Glucose 42 L (65-100) mg/dL POC Glucose 76 (70-105) Calcium 9.6 (8.4-10.2) mg/dL Urine Color (Yellow) Urine Turbidity (Clear) Urine pH (5.0-7.0) Ur Specific [place] (1.003-1.030) Urine Protein (Negative) mg/dL Urine Glucose (UA) (Negative) mg/dL Urine Ketones (Negative) mg/dL Urine Blood (Negative) Urine Nitrite (Negative) Urine Bilirubin (Negative) Urine Urobilinogen (<2.0) mg/dL Ur Leukocyte Esterase (Negative) Urine WBC (Auto) (0.0-6.0) /HPF Urine RBC (Auto) (0.0-6.0) /HPF U Epithel Cells (Auto) (0-13.0) /HPF 09/26/17 09/26/17 09/26/17 Range/Units 11:25 12:19 Unknown WBC (4.5-11.0) K/mm3 RBC (3.65-5.03) M/mm3 Hgb (10.1-14.3) gm/dl Hct (30.3-42.9) % MCV (79-97) fl MCH (28-32) pg MCHC (30-34) % RDW (13.2-15.2) % Plt Count (140-440) K/mm3 Lymph % (Auto) (13.4-35.0) % [place] % (Auto) (0.0-7.3) % Eos % (Auto) (0.0-4.3) % Baso % (Auto) (0.0-1.8) % Lymph # (1.2-5.4) K/mm3 [place] # (0.0-0.8) K/mm3 Eos # (0.0-0.4) K/mm3 Baso # (0.0-0.1) K/mm3 Seg Neutrophils % (40.0-70.0) % Seg Neutrophils # (1.8-7.7) K/mm3 Sodium (137-145) mmol/L Potassium (3.6-5.0) mmol/L Chloride (98-107) mmol/L Carbon Dioxide (22-30) mmol/L Anion Gap mmol/L BUN (7-17) mg/dL Creatinine (0.7-1.2) mg/dL Estimated GFR ml/min BUN/Creatinine Ratio % Glucose (65-100) mg/dL POC Glucose 80 121 H (70-105) Calcium (8.4-10.2) mg/dL Urine Color Straw (Yellow) Urine Turbidity Clear (Clear) Urine pH 8.0 H (5.0-7.0) Ur Specific [place] 1.011 (1.003-1.030) Urine Protein <15 mg/dl (Negative) mg/dL Urine Glucose (UA) Neg (Negative) mg/dL Urine Ketones Neg (Negative) mg/dL Urine Blood Neg (Negative) Urine Nitrite Neg (Negative) Urine Bilirubin Neg (Negative) Urine Urobilinogen < 2.0 (<2.0) mg/dL Ur Leukocyte Esterase Neg (Negative) Urine WBC (Auto) < 1.0 (0.0-6.0) /HPF Urine RBC (Auto) 3.0 (0.0-6.0) /HPF U Epithel Cells (Auto) < 1.0 (0-13.0) /HPF - EKG Data -: EKG Interpreted by Id - EKG Data 09/26/17 12:42 EKG shows normal sinus rhythm left atrial enlargement and T-wave inversions in V5 and V6. No ST segment elevation. - Medical Decision Making Medical diagnosis: Hypoglycemia secondary to insulin use Differential medical diagnosis: Electrolyte abnormality, medication effect I will get CBC, CMP, white count glucose, orange juice, and sandw[employer] is feeling better patient's blood glucose has improved with orange juice and bread. Because patient has a clear etiology of her hypoglycemia and admits to using O2 much insulin since it was in the morning. Patient does not need to be admitted. Patient denies having any chest pain or shortness of breath her blood work is unremarkable I'll send patient home with follow-up with her primary care doctor. Discussed findings with patient patient agrees with plan. Additional verbal discharge instructions were given. Critical care attestation.: If time is entered above; I have spent that time in minutes in the direct care of this critically ill patient, excluding procedure time. ED Disposition Clinical Impression: Insulin dependent diabetes mellitus, Hypoglycemia, Hypoglycemia due to insulin Disposition: DC-01 TO HOME OR SELFCARE Is pt being admited?: No Does the pt Need Aspirin: No Condition: Stable Instructions: Diabetes Mellitus Type 2 in Adults (ED), Diabetic Hypoglycemia ( ED) Referrals: YUMI AMEZCUA MD [Staff Physician] - 3-5 Days
[2017-09-26 11:47] LABS: Bilirubin,Urine NEG (Negative); Blood,Urine NEG (Negative); Ketones,Urine NEG (Negative); Leukocyte Esterase,Urine NEG (Negative); Nitrite,Urine NEG (Negative); Protein,Urine <15 mg/dL mg/dL (Negative); Urobilinogen,Urine < 2.0 mg/dL (<2.0); WBC,Urine < 1.0 /HPF (0.0-6.0)
[2017-09-26 13:13] VITALS: BP 127/89
== END 2017-09-26 14:00 | disposition home or self-care (01) ==
LOC: ED 09:07
DX: E11.649 Type 2 diabetes mellitus with hypoglycemia without coma (principal); I50.9 Heart failure, unspecified; J44.9 Chronic obstructive pulmonary disease, unspecified; G89.29 Other chronic pain; Z79.4 Long term (current) use of insulin
CPT/HCPCS: 36415; 80048; 81001; 82962; 85025; 93005; 93010

== ENCOUNTER 2018-03-14 10:44 | Inpatient (IN) | payer MEDICARE ==
[2018-03-14 13:55] LABS: Hematocrit 37.8 % (30.3-42.9); Hemoglobin 13.1 gm/dl (10.1-14.3); Mean Corpuscular HGB Conc 35 % (30-34); Mean Corpuscular Hemoglobin 27 pg (28-32); Mean Corpuscular Volume 79 fl (79-97); Platelet Count 179 K/mm3 (140-440); Red Blood Count 4.78 M/mm3 (3.65-5.03); Red Cell Distribution Width 15.1 % (13.2-15.2)
[2018-03-14 14:05] LABS: INR 0.95 (0.87-1.13)
[2018-03-14 14:06] LABS: Partial Thromboplastin Time 34.9 Sec. (24.2-36.6)
[2018-03-14 14:18] LABS: BUN/Creatinine Ratio 23; Blood Urea Nitrogen 23 mg/dL (7-17)
[2018-03-14 14:19] LABS: Alanine Aminotransferase 11 units/L (7-56); Albumin 3.6 g/dL (3.9-5); Calcium 9.7 mg/dL (8.4-10.2); Hemolysis Index 6
--- NOTE | 2018-03-14 20:53 | Emergency Department Report ---
HPI - General Chief Complaint: Extremity Problem,Nontraumatic Time Seen by Provider: 03/14/18 20:33 - HPI HPI: Room 8 The patient is a 67-year-old female presenting with a chief complaint of bilateral lower extremity edema and shortness of breath. The patient states she 's noticed swollen both lower extremities past 2-3 weeks despite being compliant with her Lasix. Patient also admitted to some shortness of breath earlier today as well. The patient went to see her primary physician ([facility] today when turn sent her to the ED for evaluation of her lower extremity edema. While waiting to be seen in the ED the patient states she had to go home to change her clothes and while at home she slipped and fell down 2 stairs landing on both knees. Patient complains of pain in both knees. Patient denies chest pain or loss of consciousness. Location: Bilateral lower extremities, lungs, knees Duration: [See above] Quality: Swelling, shortness of breath Severity: Moderate Modifying factors: [see above] Context: [see above] Mode of transportation: [not driving] ED Past Medical Hx - Past Medical History Previous Medical History?: Yes Hx Hypertension: Yes Hx Congestive Heart Failure: Yes Hx Diabetes: Yes Hx Arthritis: Yes Hx Asthma: Yes Hx COPD: Yes Additional medical history: chronic back pain - Surgical History Past Surgical History?: Yes Additional Surgical History: Right foot surgery, bilateral tubal ligation - Family History Family history: no significant - Social History Smoking Status: Current Every Day Smoker (1 pack per day) Substance Use Type: Prescribed - Medications Home Medications: Home Medications Medication Instructions Recorded Confirmed Last Taken Type cloNIDine [Catapres] 0.4 mg PO DAILY 01/18/17 09/10/17 03/13/17 History Felodipine [Felodipine ER] 10 mg PO DAILY 08/22/17 09/10/17 Unknown History Morphine ER [Ms Contin ER] 15 mg PO BID 08/22/17 09/10/17 Unknown History Carvedilol [Coreg] 25 mg PO BIDDIAB #60 tablet 08/24/17 09/10/17 Unknown Rx Clopidogrel [Plavix] 75 mg PO QDAY #30 tablet 08/24/17 09/10/17 Unknown Rx Furosemide [Lasix TAB] 40 mg PO QDAY #30 tablet 08/24/17 09/10/17 Unknown Rx Insulin NPH/Regular [NovoLIN 70/30] 15 unit SUB-Q BIDDIAB 30 Days 08/24/1709/10 Unknown Rx units Lisinopril [Zestril TAB] 10 mg PO DAILY #30 tablet 08/24/17 09/10/17 Unknown Rx Potassium Chloride [K-Dur] 10 meq PO QDAY #1 tablet 08/24/17 09/10/17 Unknown Rx Famotidine [Pepcid] 20 mg PO BID tablet 08/30/17 09/10/17 Unknown Rx Insulin NPH/Regular [NovoLIN 70/30] 15 unit SUB-Q BIDDIAB units 08/30/17 Unknown Rx Metolazone [Zaroxolyn] 5 mg PO DAILY tablet 08/30/17 09/10/17 Unknown Rx amLODIPine [Norvasc] 10 mg PO DAILY tablet 08/30/17 09/10/17 Unknown Rx cloNIDine [Catapres] 0.4 mg PO DAILY tablet 08/30/17 09/10/17 Unknown Rx metFORMIN [Glucophage] 500 mg PO BIDDIAB tablet 08/30/17 09/10/17 Unknown Rx methOCARBAMOL [Robaxin TAB] 500 mg PO Q6HR tablet 08/30/17 09/10/17 Unknown Rx ED Review of Systems ROS: Stated complaint: BILATERAL LEG/FEET SWELLING Other details as noted in HPI Constitutional: denies: fever Eyes: denies: eye pain ENT: denies: throat pain Respiratory: shortness of breath Cardiovascular: denies: chest pain Endocrine: denies: unexplained weight gain Gastrointestinal: denies: nausea, vomiting Genitourinary: denies: dysuria Musculoskeletal: arthralgia, myalgia Neurological: denies: headache Physical Exam - Physical Exam Vital Signs: Vital Signs 03/14/18 03/14/18 03/14/18 11:10 20:07 20:15 Temperature 97.6 F Pulse Rate 77 99 H Respiratory 17 16 Rate Blood Pressure 139/77 143/62 Blood Pressure [Right] O2 Sat by Pulse 95 95 92 Oximetry 03/14/18 03/14/18 03/14/18 20:23 20:24 20:31 Temperature 98.7 F Pulse Rate 97 H 105 H Respiratory 17 17 18 Rate Blood Pressure 143/62 Blood Pressure 143/62 [Right] O2 Sat by Pulse 90 90 90 Oximetry Physical Exam: GENERAL: The patient is well-developed well-nourished female lying on stretcher not appearing to be in acute distress. [] HEENT: Normocephalic. Atraumatic. Extraocular motions are intact. Patient has moist mucous membranes. NECK: Supple. Trachea midline CHEST/LUNGS: Faint occasional expiratory wheeze. Occasional crackles bibasilar. There is no respiratory distress noted. HEART/CARDIOVASCULAR: Regular. There is tachycardia. There is no gallop rub or murmur. ABDOMEN: Abdomen is soft, nontender. Patient has normal bowel sounds. There is no abdominal distention. SKIN: There is no rash. There is 2+ bilateral lower extremity pitting edema. There is no diaphoresis. NEURO: The patient is awake, alert, and oriented. The patient is cooperative. The patient has normal speech MUSCULOSKELETAL: There is no evidence of acute injury. ED Course Vital Signs 03/14/18 03/14/18 03/14/18 11:10 20:07 20:15 Temperature 97.6 F Pulse Rate 77 99 H Respiratory 17 16 Rate Blood Pressure 139/77 143/62 Blood Pressure [Right] O2 Sat by Pulse 95 95 92 Oximetry 03/14/18 03/14/18 03/14/18 20:23 20:24 20:31 Temperature 98.7 F Pulse Rate 97 H 105 H Respiratory 17 17 18 Rate Blood Pressure 143/62 Blood Pressure 143/62 [Right] O2 Sat by Pulse 90 90 90 Oximetry ED Medical Decision Making - Lab Data Result diagrams: 03/14/18 13:33 03/14/18 13:33 Laboratory Tests 03/14/18 03/14/18 03/14/18 13:33 13:33 13:33 WBC 7.8 RBC 4.78 Hgb 13.1 Hct 37.8 MCV 79 MCH 27 L MCHC 35 H RDW 15.1 Plt Count 179 PT 13.2 INR 0.95 APTT 34.9 POC ABG pH POC ABG pCO2 POC ABG pO2 POC ABG HCO3 POC ABG Total CO2 POC ABG O2 Sat POC ABG Base Excess FiO2 Sodium 138 Potassium 4.1 Chloride 101.6 Carbon Dioxide 24 Anion Gap 17 BUN 23 H Creatinine 1.0 Estimated GFR > 60 BUN/Creatinine Ratio 23 Glucose 217 H Calcium 9.7 Total Bilirubin 0.50 AST 13 ALT 11 Alkaline Phosphatase 175 H Total Creatine Kinase 67 NT-Pro-B Natriuret Pep 1312 H Total Protein 7.1 Albumin 3.6 L Albumin/Globulin Ratio 1.0 03/14/18 21:05 WBC RBC Hgb Hct MCV MCH MCHC RDW Plt Count PT INR APTT POC ABG pH 7.452 H POC ABG pCO2 31.9 L POC ABG pO2 42 L POC ABG HCO3 22.3 POC ABG Total CO2 23 POC ABG O2 Sat 81 POC ABG Base Excess -2 FiO2 21 Sodium Potassium Chloride Carbon Dioxide Anion Gap BUN Creatinine Estimated GFR BUN/Creatinine Ratio Glucose Calcium Total Bilirubin AST ALT Alkaline Phosphatase Total Creatine Kinase NT-Pro-B Natriuret Pep Total Protein Albumin Albumin/Globulin Ratio - EKG Data -: EKG Interpreted by Me EKG shows normal: sinus rhythm Rate: tachycardia (105 bpm) - EKG Data When compared to previous EKG there are: previous EKG unavailable Interpretation: nonspecific ST-T wave dane (T-wave inversions in leads V5, V6) - Radiology Data Radiology results: image reviewed (chest x-ray, bilateral knee x-ray) interpreted by me: Chest x-ray-CHF Bilateral knee x-ray-no acute fractures - Differential Diagnosis CHF exacerbation, pneumonia, pneumothorax, COPD Critical care attestation.: If time is entered above; I have spent that time in minutes in the direct care of this critically ill patient, excluding procedure time. ED Disposition Clinical Impression: CHF exacerbation, Hypoxia Disposition: OP ADMIT IP TO THIS HOSP Is pt being admited?: Yes Does the pt Need Aspirin: Yes Condition: Fair Referrals: JASS CHO MD [Primary Care Provider] - 3-5 Days Time of Disposition: 22:11 (hospitalist paged (Dr. Anila Ramos))
[2018-03-14] MEDS ORDERED: PROVENTIL IH ONE (21:46)
[2018-03-14] MEDS ORDERED: ATROVENT IH ONE (21:46)
[2018-03-14] MEDS ORDERED: LASIX IV ONE (22:00)
--- NOTE | 2018-03-14 22:12 | XRay Report ---
FINAL REPORT PROCEDURE: XR KNEE BILAT 1-2V TECHNIQUE: RIGHT knee radiographs, AP, cross-table lateral and oblique views. CPT 69763 HISTORY: knee pain after fall COMPARISON: No prior studies are available for comparison. FINDINGS: Bony alignment is within normal limits. There is narrowing of the tibiofemoral and patellofemoral joint spaces with mild to moderate degree osteophyte formation. An acute fracture is not identified. There is no evidence of joint effusion. No radiopaque foreign bodies.. IMPRESSION: Moderate degree osteoarthritis No acute fracture.
--- NOTE | 2018-03-14 22:13 | XRay Report ---
FINAL REPORT PROCEDURE: XR CHEST 1V AP TECHNIQUE: Chest radiograph anteroposterior view. CPT 02324 HISTORY: hypoxia COMPARISON: No prior studies are available for comparison. FINDINGS: Patient is rotated to the left Heart: Normal. Mediastinum/Vessels: Normal. Lungs/Pleural space: There is diffuse haziness of bilateral lungs. Diffuse prominence of interstitial markings is noted. Left lower lung and left costophrenic angle are obscured by the cardiac shadow. Right pleural space is clear.. Bony thorax: No acute osseous abnormality. Life support devices: None. IMPRESSION: Diffuse prominence of interstitial markings most likely represent CHF. Left lower lung is obscured by cardiac shadow and there is diffuse haziness of bilateral lower lungs. Underlying pneumonia cannot be excluded. Left costophrenic angle is obscured by cardiac shadow. Left pleural effusion cannot be excluded. A two view chest study is recommended whenever the patient's condition permits..
[2018-03-14] MEDS: ASPIRIN PO ONE ×2 (22:41→23:16)
[2018-03-14] MEDS ORDERED: TRIPLE ANTIBIOTIC TP ONE ×2 (23:30→23:35)
--- NOTE | 2018-03-14 23:30 | History and Physical Report ---
History of Present Illness Date of examination: 03/14/18 History of present illness: 67-year-old woman with a history of hypertension, diabetes, CHF, COPD comes emergency room with complaints of shortness of breath, PND, orthopnea and increasing lower extremity edema. She was placed on BiPAP in the emergency room She states she is compliant with medication and diet. Patient stated that she sustained a fall yesterday and had difficulty getting up, no loss of consciousness or complaint of generalized weakness Review of systems Constitutional: no weight loss, chills Ears, eyes, nose, mouth and throat: no nasal congestion, no nasal discharge, no sinus pressure, no vision change, no red eye. Neck: No neck pain or rigidity. Cardiovascular: no chest pain, palpitations Respiratory: No cough, shortness of breath Gastrointestinal: no abdominal pain, hematochezia Genitourinary : no dysuria, frequency , no hematuria Musculoskeletal: no joint swelling or muscle ache Integumentary: no rash, no pruritis Neurological: no parathesias, no numbness, no focal weakness Endocrine: no cold or heat intolerance, no polyuria or polydipsia Hematologic/Lymphatic: no easy bruising, no easy bleeding, no gland swelling Allergic/Immunologic: no urticaria, no angioedema. PAST MEDICAL HISTORY:hypertension, diabetes, CHF, COPD PAST SURGICAL HISTORY: Ankle, tubal ligation SOCIAL HISTORY: Smoked one pack a day, no alcohol or drugs FAMILY HISTORY: Hypertension Medications and Allergies Allergies Allergy/AdvReac Type Severity Reaction Status Date / Time No Known Allergies Allergy Verified 08/22/17 06:10 Home Medications Medication Instructions Recorded Confirmed Last Taken Type cloNIDine [Catapres] 0.4 mg PO DAILY 01/18/17 09/10/17 03/13/17 History Felodipine [Felodipine ER] 10 mg PO DAILY 08/22/17 09/10/17 Unknown History Morphine ER [Ms Contin ER] 15 mg PO BID 08/22/17 09/10/17 Unknown History Carvedilol [Coreg] 25 mg PO BIDDIAB #60 tablet 08/24/17 09/10/17 Unknown Rx Clopidogrel [Plavix] 75 mg PO QDAY #30 tablet 08/24/17 09/10/17 Unknown Rx Furosemide [Lasix TAB] 40 mg PO QDAY #30 tablet 08/24/17 09/10/17 Unknown Rx Insulin NPH/Regular [NovoLIN 70/30] 15 unit SUB-Q BIDDIAB 30 Days 08/24/1709/10 Unknown Rx units Lisinopril [Zestril TAB] 10 mg PO DAILY #30 tablet 08/24/17 09/10/17 Unknown Rx Potassium Chloride [K-Dur] 10 meq PO QDAY #1 tablet 08/24/17 09/10/17 Unknown Rx Famotidine [Pepcid] 20 mg PO BID tablet 08/30/17 09/10/17 Unknown Rx Insulin NPH/Regular [NovoLIN 70/30] 15 unit SUB-Q BIDDIAB units 08/30/17 Unknown Rx Metolazone [Zaroxolyn] 5 mg PO DAILY tablet 08/30/17 09/10/17 Unknown Rx amLODIPine [Norvasc] 10 mg PO DAILY tablet 08/30/17 09/10/17 Unknown Rx cloNIDine [Catapres] 0.4 mg PO DAILY tablet 08/30/17 09/10/17 Unknown Rx metFORMIN [Glucophage] 500 mg PO BIDDIAB tablet 08/30/17 09/10/17 Unknown Rx methOCARBAMOL [Robaxin TAB] 500 mg PO Q6HR tablet 08/30/17 09/10/17 Unknown Rx Exam - Physical Exam Narrative exam: Gen. appearance: Patient lying in bed, no apparent distress HEENT: Normocephalic, atraumatic, pupils equally round and reactive to light, extraocular movement intact, and no sclericterus,. No JVD or thyromegaly or nodule,neck supple, no carotid bruit ,mucous membranes moist, no exudate or erythema Heart: S1, S2, regular rate and rhythm Lungs: Crackles, wheezing bilaterally, breathing comfortable Abdomen: Positive bowel sounds, nontender, nondistended, no organomegaly Extremity: Positive edema, cyanosis, clubbing Skin: No rash, nodules, warm, dry Neuro: Oriented 3, cranial nerves II-12 intact, speech is fluent, motor and sensory intact - Constitutional Vitals: Temp Pulse Resp BP Pulse Ox 98.7 F 109 H 24 202/111 97 03/14/18 20:23 03/14/18 23:11 03/14/18 23:11 03/14/18 23:01 03/14/18 23:01 Results - Labs CBC & Chem 7: 03/14/18 13:33 03/14/18 13:33 Labs: Abnormal lab results 03/14/18 03/14/18 03/14/18 Range/Units 13:33 13:33 21:05 MCH 27 L (28-32) pg MCHC 35 H (30-34) % POC ABG pH 7.452 H (7.35-7.45) POC ABG pCO2 31.9 L (35-45) POC ABG pO2 42 L (80-105) BUN 23 H (7-17) mg/dL Glucose 217 H (65-100) mg/dL Alkaline Phosphatase 175 H (35-129) units/L NT-Pro-B Natriuret Pep 1312 H (0-900) pg/mL Albumin 3.6 L (3.9-5) g/dL - Imaging and Cardiology EKG: image reviewed Chest x-ray: image reviewed Assessment and Plan Assessment Acute respiratory failure Acute on chronic CHF exacerbation, systolic and diastolic dysfunction COPD exacerbation Hypertension Diabetes type 2 Admit to medicine Continue BiPAP Diurese with IV Lasix, check cardiac enzymes, echo Start beta loraine, JAVED inhibitor, aspirin Monitor I's and O's, daily weights, Start high-dose steroids, nebulizer treatments Check fingersticks initiate insulin sliding scale Continue appropriate outpatient medication, started to prophylaxis
[2018-03-15] MEDS ORDERED: SODIUM CHLORIDE FLUSH SYRINGE 10 ML IV PRN (00:47)
[2018-03-15] MEDS ORDERED: ZOFRAN IV PRN (00:47)
[2018-03-15] MEDS ORDERED: D50W (25GM) Syringe IV PRN (00:47)
[2018-03-15] MEDS ORDERED: TYLENOL PO PRN (00:47)
[2018-03-15] MEDS ORDERED: APRESOLINE IV PRN ×2 (00:51→00:52)
[2018-03-15] MEDS: LASIX IV SCH ×2 (07:25→18:55)
[2018-03-15 09:32] LABS: Creatine Kinase MB 26.1 ng/mL (0.0-4.0)
[2018-03-15 09:53] LABS: Chol/HDL Ratio 1.72 %
[2018-03-15] MEDS ORDERED: ZESTRIL PO SCH (10:00)
--- NOTE | 2018-03-15 10:07 | Consultation ---
History of Present Illness Consult date: 03/15/18 Consult reason: congestive heart failure History of present illness: This is a 67yr old woman with admitted with shortness of breath and hypoxemia. She is currently on Bipap therapy. There is a cardiac history of a nonischemic cardiomyopathy, dating back to a remote cardiac catheterization in [facility], 1997. She was recommended for invasive cardiac evaluation based on fixed inferior wall defect on thallium imaging but the patient declined and wished to pursue continued medical management. Last year, an echocardiogram reported left ventricle ejection fraction of 20-25%. Patient has a known history of noncompliance with medical therapy and outpatient cardiac follow ups. Patient is noted with lower extremity edema. There were no reports of chest pain. A chest xray reports CHF. A cardiac consultation was requested for CHF management. Medications and Allergies Allergies Allergy/AdvReac Type Severity Reaction Status Date / Time No Known Allergies Allergy Verified 08/22/17 06:10 Home Medications Medication Instructions Recorded Confirmed Last Taken Type cloNIDine [Catapres] 0.4 mg PO DAILY 01/18/17 09/10/17 03/13/17 History Felodipine [Felodipine ER] 10 mg PO DAILY 08/22/17 09/10/17 Unknown History Morphine ER [Ms Contin ER] 15 mg PO BID 08/22/17 09/10/17 Unknown History Carvedilol [Coreg] 25 mg PO BIDDIAB #60 tablet 08/24/17 09/10/17 Unknown Rx Clopidogrel [Plavix] 75 mg PO QDAY #30 tablet 08/24/17 09/10/17 Unknown Rx Furosemide [Lasix TAB] 40 mg PO QDAY #30 tablet 08/24/17 09/10/17 Unknown Rx Insulin NPH/Regular [NovoLIN 70/30] 15 unit SUB-Q BIDDIAB 30 Days 08/24/1709/10 Unknown Rx units Lisinopril [Zestril TAB] 10 mg PO DAILY #30 tablet 08/24/17 09/10/17 Unknown Rx Potassium Chloride [K-Dur] 10 meq PO QDAY #1 tablet 08/24/17 09/10/17 Unknown Rx Famotidine [Pepcid] 20 mg PO BID tablet 08/30/17 09/10/17 Unknown Rx Insulin NPH/Regular [NovoLIN 70/30] 15 unit SUB-Q BIDDIAB units 08/30/17 Unknown Rx Metolazone [Zaroxolyn] 5 mg PO DAILY tablet 08/30/17 09/10/17 Unknown Rx amLODIPine [Norvasc] 10 mg PO DAILY tablet 08/30/17 09/10/17 Unknown Rx cloNIDine [Catapres] 0.4 mg PO DAILY tablet 08/30/17 09/10/17 Unknown Rx metFORMIN [Glucophage] 500 mg PO BIDDIAB tablet 08/30/17 09/10/17 Unknown Rx methOCARBAMOL [Robaxin TAB] 500 mg PO Q6HR tablet 08/30/17 09/10/17 Unknown Rx Active Meds: Active Medications Acetaminophen (Tylenol) 650 mg PO Q4H PRN PRN Reason: Pain MILD(1-3)/Fever >100.5/WHEELER Carvedilol (Coreg) 25 mg PO BID [facility] Clopidogrel Bisulfate (Plavix) 75 mg PO QDAY [facility] Dextrose (D50w (25gm) Syringe) 50 ml IV PRN PRN PRN Reason: Hypoglycemia Enoxaparin Sodium (Lovenox) 40 mg SUB-Q QDAY [facility] Famotidine (Pepcid) 20 mg PO BID [facility] Furosemide (Lasix) 40 mg IV BID@0600,1800 [facility] Last Admin: 03/15/18 07:25 Dose: 40 mg Hydralazine HCl (Apresoline) 5 mg IV Q6H PRN PRN Reason: Hypertension Last Admin: 03/15/18 03:00 Dose: 5 mg Insulin Human Isoph/Insulin Regular (Humulin 70/30) 15 unit SUB-Q BIDDIAB [facility] Insulin Human Regular (Humulin R) 0 units SUB-Q [facility]; Protocol Lisinopril (Zestril) 10 mg PO DAILY [facility] Metformin HCl (Glucophage) 500 mg PO BIDDIAB [facility] Methylprednisolone Sodium Succinate (Solu-Medrol) 60 mg IV Q8HR [facility] Last Admin: 03/15/18 03:00 Dose: 60 mg Ondansetron HCl (Zofran) 4 mg IV Q8H PRN PRN Reason: Nausea And Vomiting Sodium Chloride (Sodium Chloride Flush Syringe 10 Ml) 10 ml IV BID [facility] Sodium Chloride (Sodium Chloride Flush Syringe 10 Ml) 10 ml IV PRN PRN PRN Reason: LINE FLUSH Physical Examination Vital Signs Temp Pulse Resp BP Pulse Ox 97.6 F 77 17 139/77 95 05/08/18 11:10 03/14/18 11:10 03/14/18 11:10 03/14/18 11:10 03/14/18 11:10 Cardiac: Positive: Reg Rate and Rhythm Results 03/14/18 13:33 03/14/18 13:33 Cardiac Enzymes 03/14/18 03/15/18 Range/Units 13:33 08:32 AST 13 (5-40) units/L CK-MB (CK-2) 26.1 H (0.0-4.0) ng/mL Coagulation 03/14/18 Range/Units 13:33 PT 13.2 (12.2-14.9) Sec. INR 0.95 (0.87-1.13) APTT 34.9 (24.2-36.6) Sec. Lipids 03/15/18 Range/Units 08:32 Triglycerides 60 (2-149) mg/dL Cholesterol 155 (50-199) mg/dL HDL Cholesterol 90 H (40-59) mg/dL Cholesterol/HDL Ratio 1.72 % CBC 03/14/18 Range/Units 13:33 WBC 7.8 (4.5-11.0) K/mm3 RBC 4.78 (3.65-5.03) M/mm3 Hgb 13.1 (10.1-14.3) gm/dl Hct 37.8 (30.3-42.9) % Plt Count 179 (140-440) K/mm3 Comprehensive Metabolic Panel 03/14/18 Range/Units 13:33 Sodium 138 (137-145) mmol/L Potassium 4.1 (3.6-5.0) mmol/L Chloride 101.6 (98-107) mmol/L Carbon Dioxide 24 (22-30) mmol/L BUN 23 H (7-17) mg/dL Creatinine 1.0 (0.7-1.2) mg/dL Glucose 217 H (65-100) mg/dL Calcium 9.7 (8.4-10.2) mg/dL AST 13 (5-40) units/L ALT 11 (7-56) units/L Alkaline Phosphatase 175 H (35-129) units/L Total Protein 7.1 (6.3-8.2) g/dL Albumin 3.6 L (3.9-5) g/dL Assessment and Plan Acute hypoxic respiratory failure Chronic obstructive pulmonary disease Dilated Nonischemic Cardiomyopathy EF 20-25% by echo Hypertension -uncontrolled Diabetes Obese Abnormal cardiac enzymes She was recommended for invasive cardiac evaluation based on fixed inferior wall defect on thallium imaging, but the patient declined and wished to pursue continued medical management.
[2018-03-15] MEDS: GLUCOPHAGE PO SCH ×2 (10:15→18:55)
[2018-03-15] MEDS: COREG PO SCH ×2 (10:34→22:30)
[2018-03-15] MEDS: PLAVIX PO SCH (10:35)
[2018-03-15] MEDS: LOVENOX SUB-Q SCH (10:35)
[2018-03-15] MEDS: PEPCID PO SCH ×2 (10:35→22:30)
[2018-03-15] MEDS: HumuLIN R SUB-Q SCH ×4 (10:35→22:39)
[2018-03-15] MEDS: SODIUM CHLORIDE FLUSH SYRINGE 10 ML IV SCH ×2 (10:35→22:31)
[2018-03-15] MEDS: ZESTRIL PO SCH (11:38)
--- NOTE | 2018-03-15 16:21 | Progress Note ---
Assessment and Plan Assessment and plan: Acute respiratory failure with hypoxia- continue oxygen, weaned off bipap Acute on chronic CHF exacerbation, systolic and diastolic dysfunction; continue diuretics, cardiology following -continue diuretics, planned for cath COPD is highly doubted previous pulmonary notes from dr steven reviewed, respiratory failure likely due to chf taper steroids Hypertension continue bp meds Diabetes type 2, with high glc likely due to steroids; continue insulins History Interval history: Review of systems Constitutional: No fevers, no malaise, no joint pains CVS: No chest pain, c/o orthopnea, c/o dyspnea on exertion, c/o pedal edema GI: No abdominal pain, no diarrhea, no vomiting, no constipation Respiratory: sob is improving, no wheezing, no coughing Hospitalist Physical - Physical exam Narrative exam: General.: Appears well, no distress, nontoxic HEENT: Moist mucous membranes, extraocular muscles intact, no lymphadenopathy Neck: supple Cardiac: S1-S2 heard Lungs: Diminished air entry in bases Abdomen: soft , nontender, nondistended, bowel sounds positive Extremities: 3+ bipedal edema, with chronic skin changes likely from chronic swelling Skin: no rash or lesions Neurologic: no gross focal deficits Psych: appropriate behavior, appropriate mood, corporative, judgment intact - Constitutional Vitals: Temp Pulse Resp BP Pulse Ox 98.1 F 100 H 32 H 168/94 96 03/14/18 23:21 03/15/18 11:38 03/15/18 09:00 03/15/18 11:38 03/15/18 06:00 Results - Labs CBC & Chem 7: 03/17/18 05:46 03/17/18 05:46 Labs: Laboratory Last Values WBC 7.8 K/mm3 (4.5-11.0) 03/14/18 13:33 RBC 4.78 M/mm3 (3.65-5.03) 03/14/18 13:33 Hgb 13.1 gm/dl (10.1-14.3) 03/14/18 13:33 Hct 37.8 % (30.3-42.9) 03/14/18 13:33 MCV 79 fl (79-97) 03/14/18 13:33 MCH 27 pg (28-32) L 03/14/18 13:33 MCHC 35 % (30-34) H 03/14/18 13:33 RDW 15.1 % (13.2-15.2) 03/14/18 13:33 Plt Count 179 K/mm3 (140-440) 03/14/18 13:33 PT 13.2 Sec. (12.2-14.9) 03/14/18 13:33 INR 0.95 (0.87-1.13) 03/14/18 13:33 APTT 34.9 Sec. (24.2-36.6) 03/14/18 13:33 POC ABG pH 7.449 (7.35-7.45) 03/15/18 03:34 POC ABG pCO2 37.1 (35-45) 03/15/18 03:34 POC ABG pO2 75 (80-105) L 03/15/18 03:34 POC ABG HCO3 25.7 03/15/18 03:34 POC ABG Total CO2 27 03/15/18 03:34 POC ABG O2 Sat 96 03/15/18 03:34 POC ABG Base Excess 2 03/15/18 03:34 FiO2 60 % 03/15/18 03:34 Sodium 138 mmol/L (137-145) 03/14/18 13:33 Potassium 4.1 mmol/L (3.6-5.0) 03/14/18 13:33 Chloride 101.6 mmol/L (98-107) 03/14/18 13:33 Carbon Dioxide 24 mmol/L (22-30) 03/14/18 13:33 Anion Gap 17 mmol/L 03/14/18 13:33 BUN 23 mg/dL (7-17) H 03/14/18 13:33 Creatinine 1.0 mg/dL (0.7-1.2) 03/14/18 13:33 Estimated GFR > 60 ml/min 03/14/18 13:33 BUN/Creatinine Ratio 23 % 03/14/18 13:33 Glucose 217 mg/dL (65-100) H 03/14/18 13:33 POC Glucose 370 (70-105) H 03/15/18 12:47 Calcium 9.7 mg/dL (8.4-10.2) 03/14/18 13:33 Total Bilirubin 0.50 mg/dL (0.1-1.2) 03/14/18 13:33 AST 13 units/L (5-40) 03/14/18 13:33 ALT 11 units/L (7-56) 03/14/18 13:33 Alkaline Phosphatase 175 units/L (35-129) H 03/14/18 13:33 Total Creatine Kinase 223 units/L (30-135) H 03/15/18 08:32 CK-MB (CK-2) 26.1 ng/mL (0.0-4.0) H 03/15/18 08:32 CK-MB (CK-2) Rel Index 11.7 (0-4) H 03/15/18 08:32 Troponin T 0.335 ng/mL (0.00-0.029) H* 03/15/18 08:32 NT-Pro-B Natriuret Pep 1312 pg/mL (0-900) H 03/14/18 13:33 Total Protein 7.1 g/dL (6.3-8.2) 03/14/18 13:33 Albumin 3.6 g/dL (3.9-5) L 03/14/18 13:33 Albumin/Globulin Ratio 1.0 % 03/14/18 13:33 Triglycerides 60 mg/dL (2-149) 03/15/18 08:32 Cholesterol 155 mg/dL (50-199) 03/15/18 08:32 LDL Cholesterol Direct 66 mg/dL (50-130) 03/15/18 08:32 HDL Cholesterol 90 mg/dL (40-59) H 03/15/18 08:32 Cholesterol/HDL Ratio 1.72 % 03/15/18 08:32
[2018-03-15 17:47] LABS: Creatine Kinase MB 23.4 ng/mL (0.0-4.0)
[2018-03-16] MEDS: LASIX IV SCH ×2 (05:40→18:34)
[2018-03-16 07:26] LABS: Hematocrit 35.6 % (30.3-42.9); Hemoglobin 12.5 gm/dl (10.1-14.3); Mean Corpuscular HGB Conc 35 % (30-34); Mean Corpuscular Hemoglobin 28 pg (28-32); Mean Corpuscular Volume 79 fl (79-97); Platelet Count 194 K/mm3 (140-440); Red Cell Distribution Width 15.4 % (13.2-15.2)
[2018-03-16 08:38] LABS: Basophils % (Manual) 0 % (0.0-1.8); Monocytes % (Manual) 0 % (0.0-7.3); Total Cells Counted 100
[2018-03-16 08:39] LABS: Anisocytosis 1+; Eosinophils % (Manual) 0 % (0.0-4.3); Large Platelets Few; Platelet Estimate Cons
[2018-03-16] MEDS: GLUCOPHAGE PO SCH ×2 (09:23→18:34)
[2018-03-16] MEDS: PLAVIX PO SCH (09:23)
[2018-03-16] MEDS: LOVENOX SUB-Q SCH (09:23)
[2018-03-16] MEDS: PEPCID PO SCH ×2 (09:23→22:06)
[2018-03-16] MEDS: HumuLIN R SUB-Q SCH ×4 (09:24→22:05)
[2018-03-16] MEDS: COREG PO SCH ×2 (09:32→22:06)
[2018-03-16] MEDS: SODIUM CHLORIDE FLUSH SYRINGE 10 ML IV SCH ×2 (09:32→22:07)
[2018-03-16] MEDS: ZESTRIL PO SCH (09:33)
--- NOTE | 2018-03-16 10:41 | Progress Note ---
Assessment and Plan Acute hypoxic respiratory failure Acute systolic heart failure Chronic obstructive pulmonary disease Dilated Nonischemic Cardiomyopathy EF 20-25% by echo 03/2017 Hypertension Diabetes Obese Abnormal cardiac enzymes She was previously recommended for invasive cardiac evaluation based on fixed inferior wall defect on thallium imaging, but the patient declined and wished to pursue continued medical management. Subjective Date of service: 03/16/18 Interval history: Patient is resting in bed comfortably. Her breathing is stable. She denies chest pain. Objective Vital Signs Temp Pulse Pulse Resp BP BP Pulse Ox 03/16/18 09:33 94 H 96/65 03/16/18 09:32 94 H 96/65 03/16/18 08:55 98.2 F 94 H 20 96/65 98 03/15/18 23:10 92 H 03/15/18 22:30 89 125/61 03/15/18 22:25 89 20 96 03/15/18 20:19 98.2 F 89 18 125/61 95 03/15/18 20:15 98.7 F 94 H 18 125/61 97 03/15/18 14:00 90 22 151/84 96 03/15/18 13:50 93 H 20 151/84 96 03/15/18 13:40 94 H 19 151/84 98 03/15/18 13:30 93 H 23 151/84 95 03/15/18 13:20 101 H 15 151/84 95 03/15/18 13:10 90 15 151/84 98 03/15/18 13:00 87 15 151/84 99 03/15/18 12:50 87 15 132/99 100 03/15/18 12:40 88 15 132/99 100 03/15/18 12:30 91 H 15 132/99 100 03/15/18 12:20 90 16 132/99 100 03/15/18 12:10 103 H 25 H 132/99 100 03/15/18 12:00 94 H 20 132/99 98 03/15/18 11:50 95 H 22 168/94 100 03/15/18 11:40 100 H 25 H 168/94 100 03/15/18 11:38 100 H 168/94 03/15/18 11:30 93 H 16 168/94 97 03/15/18 11:20 103 H 33 H 175/91 100 03/15/18 11:10 94 H 15 175/91 100 03/15/18 11:00 97 H 18 175/91 03/15/18 10:50 96 H 27 H 185/153 100 - Physical Examination General: No Apparent Distress Cardiac: Positive: Reg Rate and Rhythm Extremities: Present: edema - Labs and Meds Cardiac Enzymes 03/15/18 Range/Units 17:06 CK-MB (CK-2) 23.4 H (0.0-4.0) ng/mL CBC 03/16/18 Range/Units 06:56 WBC 10.2 (4.5-11.0) K/mm3 RBC 4.50 (3.65-5.03) M/mm3 Hgb 12.5 (10.1-14.3) gm/dl Hct 35.6 (30.3-42.9) % Plt Count 194 (140-440) K/mm3 Comprehensive Metabolic Panel 03/16/18 Range/Units 06:56 Sodium 139 (137-145) mmol/L Potassium 3.8 (3.6-5.0) mmol/L Chloride 96.1 L (98-107) mmol/L Carbon Dioxide 28 (22-30) mmol/L BUN 34 H (7-17) mg/dL Creatinine 1.2 (0.7-1.2) mg/dL Glucose 241 H (65-100) mg/dL Calcium 9.0 (8.4-10.2) mg/dL - Imaging and Cardiology EKG: image reviewed
[2018-03-16] MEDS: IMDUR PO SCH (18:34)
[2018-03-16] MEDS: ASPIRIN PO SCH (18:34)
[2018-03-16] MEDS: NACL 0.9% 500 ML 500 ML IV SCH (18:36)
[2018-03-17] MEDS: LASIX IV SCH (05:18)
[2018-03-17 06:06] LABS: Hematocrit 35.7 % (30.3-42.9); Hemoglobin 12.3 gm/dl (10.1-14.3); Mean Corpuscular HGB Conc 34 % (30-34); Mean Corpuscular Hemoglobin 27 pg (28-32); Mean Corpuscular Volume 79 fl (79-97); Platelet Count 232 K/mm3 (140-440); Red Blood Count 4.52 M/mm3 (3.65-5.03); Red Cell Distribution Width 15.1 % (13.2-15.2)
[2018-03-17 06:11] LABS: Partial Thromboplastin Time 29.5 Sec. (24.2-36.6)
[2018-03-17] MEDS: NACL 0.9% 500 ML 500 ML IV SCH ×2 (06:34→07:43)
[2018-03-17 06:36] LABS: Calcium 8.9 mg/dL (8.4-10.2)
[2018-03-17] MEDS: GLUCOPHAGE PO SCH ×3 (08:00→16:47)
[2018-03-17] MEDS: HumuLIN R SUB-Q SCH ×4 (08:00→22:18)
[2018-03-17] MEDS: PEPCID PO SCH ×2 (09:45→22:03)
[2018-03-17] MEDS: LOVENOX SUB-Q SCH (09:45)
[2018-03-17] MEDS: COREG PO SCH ×2 (09:45→22:03)
[2018-03-17] MEDS: PLAVIX PO SCH (09:45)
[2018-03-17] MEDS: ASPIRIN PO SCH (09:45)
[2018-03-17] MEDS: SODIUM CHLORIDE FLUSH SYRINGE 10 ML IV SCH ×2 (09:46→22:18)
[2018-03-17] MEDS: IMDUR PO SCH (09:46)
[2018-03-17] MEDS: ZESTRIL PO SCH (09:46)
--- NOTE | 2018-03-17 09:52 | Progress Note ---
Assessment and Plan Acute hypoxic respiratory failure Acute systolic heart failure Chronic obstructive pulmonary disease Dilated Nonischemic Cardiomyopathy EF 20-25% by echo 03/2017 Hypertension Diabetes Obese NSTEMI Right and left heart catheterization postponed due to acute renal failure. Intravenous lasix discontinued. Currently she is on intravenous hydration with normal saline at 50cc/hr. Subjective Date of service: 03/17/18 Interval history: Cardiac cath postponed due to acute renal failure, creatinine 1.7 today Objective Vital Signs Temp Pulse Resp BP BP Pulse Ox 03/17/18 09:46 84 138/64 03/17/18 09:45 84 138/64 03/17/18 08:10 97.4 F L 84 20 138/64 97 03/17/18 05:20 98.4 F 82 18 130/47 94 03/17/18 05:00 80 03/17/18 00:07 98.3 F 84 18 128/58 97 03/16/18 19:40 97.9 F 88 18 124/56 96 03/16/18 15:03 98.0 F 91 H 20 126/64 100 03/16/18 12:45 98.4 F 88 20 136/65 94 - Physical Examination General: No Apparent Distress HEENT: Positive: PERRL Cardiac: Positive: Reg Rate and Rhythm Lungs: Positive: Decreased Breath Sounds Neuro: Positive: Grossly Intact Extremities: Present: edema - Labs and Meds Coagulation 03/17/18 Range/Units 05:46 PT 13.7 (12.2-14.9) Sec. INR 1.00 (0.87-1.13) APTT 29.5 (24.2-36.6) Sec. CBC 03/17/18 Range/Units 05:46 WBC 11.9 H (4.5-11.0) K/mm3 RBC 4.52 (3.65-5.03) M/mm3 Hgb 12.3 (10.1-14.3) gm/dl Hct 35.7 (30.3-42.9) % Plt Count 232 (140-440) K/mm3 Comprehensive Metabolic Panel 03/17/18 Range/Units 05:46 Sodium 139 (137-145) mmol/L Potassium 3.8 (3.6-5.0) mmol/L Chloride 95.3 L (98-107) mmol/L Carbon Dioxide 28 (22-30) mmol/L BUN 49 H (7-17) mg/dL Creatinine 1.7 H (0.7-1.2) mg/dL Glucose 238 H (65-100) mg/dL Calcium 8.9 (8.4-10.2) mg/dL - Imaging and Cardiology EKG: image reviewed
[2018-03-17] MEDS ORDERED: NACL 0.45% 500 ML IV SCH (12:00)
[2018-03-17] MEDS ORDERED: MILK OF MAGNESIA PO PRN (15:18)
--- NOTE | 2018-03-17 15:50 | Progress Note ---
Assessment and Plan Assessment and plan: Acute respiratory failure with hypoxia- continue oxygen, weaned off bipap Acute on chronic CHF exacerbation, systolic and diastolic dysfunction; continue diuretics, cardiology following -continue diuretics, planned for cath COPD is highly doubted previous pulmonary notes from dr steven reviewed, respiratory failure likely due to chf taper steroids Hypertension continue bp meds Diabetes type 2, with high glc likely due to steroids; continue insulins History Interval history: Review of systems Constitutional: No fevers, no malaise, no joint pains CVS: No chest pain, c/o orthopnea, c/o dyspnea on exertion, c/o pedal edema GI: No abdominal pain, no diarrhea, no vomiting, no constipation Respiratory: sob is improving, no wheezing, no coughing Hospitalist Physical - Physical exam Narrative exam: General.: Appears well, no distress, nontoxic HEENT: Moist mucous membranes, extraocular muscles intact, no lymphadenopathy Neck: supple Cardiac: S1-S2 heard Lungs: Diminished air entry in bases Abdomen: soft , nontender, nondistended, bowel sounds positive Extremities: 3+ bipedal edema, with chronic skin changes likely from chronic swelling Skin: no rash or lesions Neurologic: no gross focal deficits Psych: appropriate behavior, appropriate mood, corporative, judgment intact - Constitutional Vitals: Temp Pulse Resp BP Pulse Ox 99.1 F 83 20 126/71 97 03/17/18 15:00 03/17/18 15:00 03/17/18 15:00 03/17/18 15:00 03/17/18 15:00 Results - Labs CBC & Chem 7: 03/17/18 05:46 03/17/18 05:46 Labs: Laboratory Last Values WBC 11.9 K/mm3 (4.5-11.0) H 03/17/18 05:46 RBC 4.52 M/mm3 (3.65-5.03) 03/17/18 05:46 Hgb 12.3 gm/dl (10.1-14.3) 03/17/18 05:46 Hct 35.7 % (30.3-42.9) 03/17/18 05:46 MCV 79 fl (79-97) 03/17/18 05:46 MCH 27 pg (28-32) L 03/17/18 05:46 MCHC 34 % (30-34) 03/17/18 05:46 RDW 15.1 % (13.2-15.2) 03/17/18 05:46 Plt Count 232 K/mm3 (140-440) 03/17/18 05:46 Add Manual Diff Complete 03/16/18 06:56 Total Counted 100 03/16/18 06:56 Seg Neuts % (Manual) 96.0 % (40.0-70.0) H 03/16/18 06:56 Band Neutrophils % 0 % 03/16/18 06:56 Lymphocytes % (Manual) 4.0 % (13.4-35.0) L 03/16/18 06:56 Reactive Lymphs % (Man) 0 % 03/16/18 06:56 Monocytes % (Manual) 0 % (0.0-7.3) 03/16/18 06:56 Eosinophils % (Manual) 0 % (0.0-4.3) 03/16/18 06:56 Basophils % (Manual) 0 % (0.0-1.8) 03/16/18 06:56 Metamyelocytes % 0 % 03/16/18 06:56 Myelocytes % 0 % 03/16/18 06:56 Promyelocytes % 0 % 03/16/18 06:56 Blast Cells % 0 % 03/16/18 06:56 Nucleated RBC % Not Reportable 03/16/18 06:56 Seg Neutrophils # Man 9.8 K/mm3 (1.8-7.7) H 03/16/18 06:56 Band Neutrophils # 0.0 K/mm3 03/16/18 06:56 Lymphocytes # (Manual) 0.4 K/mm3 (1.2-5.4) L 03/16/18 06:56 Abs React Lymphs (Man) 0.0 K/mm3 03/16/18 06:56 Monocytes # (Manual) 0.0 K/mm3 (0.0-0.8) 03/16/18 06:56 Eosinophils # (Manual) 0.0 K/mm3 (0.0-0.4) 03/16/18 06:56 Basophils # (Manual) 0.0 K/mm3 (0.0-0.1) 03/16/18 06:56 Metamyelocytes # 0.0 K/mm3 03/16/18 06:56 Myelocytes # 0.0 K/mm3 03/16/18 06:56 Promyelocytes # 0.0 K/mm3 03/16/18 06:56 Blast Cells # 0.0 K/mm3 03/16/18 06:56 WBC Morphology Not Reportable 03/16/18 06:56 Hypersegmented Neuts Not Reportable 03/16/18 06:56 Hyposegmented Neuts Not Reportable 03/16/18 06:56 Hypogranular Neuts Not Reportable 03/16/18 06:56 Smudge Cells Not Reportable 03/16/18 06:56 Toxic Granulation Not Reportable 03/16/18 06:56 Toxic Vacuolation Not Reportable 03/16/18 06:56 Dohle Bodies Not Reportable 03/16/18 06:56 Pelger-Huet Anomaly Not Reportable 03/16/18 06:56 Wes Rods Not Reportable 03/16/18 06:56 Platelet Estimate Cons 03/16/18 06:56 Clumped Platelets Not Reportable 03/16/18 06:56 Plt Clumps, EDTA Not Reportable 03/16/18 06:56 Large Platelets Few 03/16/18 06:56 Giant Platelets Not Reportable 03/16/18 06:56 Platelet Satelliting Not Reportable 03/16/18 06:56 Plt Morphology Comment Not Reportable 03/16/18 06:56 RBC Morphology Not Reportable 03/16/18 06:56 Dimorphic RBCs Not Reportable 03/16/18 06:56 Polychromasia Not Reportable 03/16/18 06:56 Hypochromasia Not Reportable 03/16/18 06:56 Poikilocytosis Not Reportable 03/16/18 06:56 Anisocytosis 1+ 03/16/18 06:56 Microcytosis Not Reportable 03/16/18 06:56 Macrocytosis Not Reportable 03/16/18 06:56 Spherocytes Not Reportable 03/16/18 06:56 Pappenheimer Bodies Not Reportable 03/16/18 06:56 Sickle Cells Not Reportable 03/16/18 06:56 Target Cells Not Reportable 03/16/18 06:56 Tear Drop Cells Not Reportable 03/16/18 06:56 Ovalocytes Not Reportable 03/16/18 06:56 Helmet Cells Not Reportable 03/16/18 06:56 [place] Bodies Not Reportable 03/16/18 06:56 [place] Rings Not Reportable 03/16/18 06:56 [place] Cells Not Reportable 03/16/18 06:56 Bite Cells Not Reportable 03/16/18 06:56 Crenated Cell Not Reportable 03/16/18 06:56 Elliptocytes Not Reportable 03/16/18 06:56 Acanthocytes (Spur) Not Reportable 03/16/18 06:56 Rouleaux Not Reportable 03/16/18 06:56 Hemoglobin C Crystals Not Reportable 03/16/18 06:56 Schistocytes Not Reportable 03/16/18 06:56 Malaria parasites Not Reportable 03/16/18 06:56 Riki Bodies Not Reportable 03/16/18 06:56 Hem Pathologist Commnt No 03/16/18 06:56 PT 13.7 Sec. (12.2-14.9) 03/17/18 05:46 INR 1.00 (0.87-1.13) 03/17/18 05:46 APTT 29.5 Sec. (24.2-36.6) 03/17/18 05:46 POC ABG pH 7.449 (7.35-7.45) 03/15/18 03:34 POC ABG pCO2 37.1 (35-45) 03/15/18 03:34 POC ABG pO2 75 (80-105) L 03/15/18 03:34 POC ABG HCO3 25.7 03/15/18 03:34 POC ABG Total CO2 27 03/15/18 03:34 POC ABG O2 Sat 96 03/15/18 03:34 POC ABG Base Excess 2 03/15/18 03:34 FiO2 60 % 03/15/18 03:34 Sodium 139 mmol/L (137-145) 03/17/18 05:46 Potassium 3.8 mmol/L (3.6-5.0) 03/17/18 05:46 Chloride 95.3 mmol/L (98-107) L 03/17/18 05:46 Carbon Dioxide 28 mmol/L (22-30) 03/17/18 05:46 Anion Gap 20 mmol/L 03/17/18 05:46 BUN 49 mg/dL (7-17) H 03/17/18 05:46 Creatinine 1.7 mg/dL (0.7-1.2) H 03/17/18 05:46 Estimated GFR 36 ml/min 03/17/18 05:46 BUN/Creatinine Ratio 29 % 03/17/18 05:46 Glucose 238 mg/dL (65-100) H 03/17/18 05:46 POC Glucose 429 (70-105) H 03/17/18 11:56 Calcium 8.9 mg/dL (8.4-10.2) 03/17/18 05:46 Total Bilirubin 0.50 mg/dL (0.1-1.2) 03/14/18 13:33 AST 13 units/L (5-40) 03/14/18 13:33 ALT 11 units/L (7-56) 03/14/18 13:33 Alkaline Phosphatase 175 units/L (35-129) H 03/14/18 13:33 Total Creatine Kinase 212 units/L (30-135) H 03/15/18 17:06 CK-MB (CK-2) 23.4 ng/mL (0.0-4.0) H 03/15/18 17:06 CK-MB (CK-2) Rel Index 11.0 (0-4) H 03/15/18 17:06 Troponin T 0.410 ng/mL (0.00-0.029) H* D 03/15/18 17:06 NT-Pro-B Natriuret Pep 1312 pg/mL (0-900) H 03/14/18 13:33 Total Protein 7.1 g/dL (6.3-8.2) 03/14/18 13:33 Albumin 3.6 g/dL (3.9-5) L 03/14/18 13:33 Albumin/Globulin Ratio 1.0 % 03/14/18 13:33 Triglycerides 60 mg/dL (2-149) 03/15/18 08:32 Cholesterol 155 mg/dL (50-199) 03/15/18 08:32 LDL Cholesterol Direct 66 mg/dL (50-130) 03/15/18 08:32 HDL Cholesterol 90 mg/dL (40-59) H 03/15/18 08:32 Cholesterol/HDL Ratio 1.72 % 03/15/18 08:32
--- NOTE | 2018-03-17 15:54 | Progress Note ---
Assessment and Plan Assessment and plan: Acute respiratory failure with hypoxia- continue oxygen, weaned off bipap Acute on chronic CHF exacerbation, systolic and diastolic dysfunction; continue diuretics, cardiology following -planned for cath, but has CATRACHO, hold diuretics, and gentle hydration CATRACHO/vasomotor nephropathy renal consult, hold diuretics, and gentle hydration COPD is highly doubted previous pulmonary notes from dr steven reviewed, respiratory failure likely due to chf taper steroids Hypertension continue bp meds Diabetes type 2, with high glc likely due to steroids; continue insulins History Interval history: Review of systems Constitutional: No fevers, no malaise, no joint pains CVS: No chest pain, c/o orthopnea, c/o dyspnea on exertion, c/o pedal edema GI: No abdominal pain, no diarrhea, no vomiting, no constipation Respiratory: sob is improving, no wheezing, no coughing Hospitalist Physical - Physical exam Narrative exam: General.: Appears well, no distress, nontoxic HEENT: Moist mucous membranes, extraocular muscles intact, no lymphadenopathy Neck: supple Cardiac: S1-S2 heard Lungs: Diminished air entry in bases Abdomen: soft , nontender, nondistended, bowel sounds positive Extremities:2+ bipedal edema, with chronic skin changes likely from chronic swelling; edema is reduced Skin: no rash or lesions Neurologic: no gross focal deficits Psych: appropriate behavior, appropriate mood, corporative, judgment intact - Constitutional Vitals: Temp Pulse Resp BP Pulse Ox 99.1 F 83 20 126/71 97 03/17/18 15:00 03/17/18 15:00 03/17/18 15:00 03/17/18 15:00 03/17/18 15:00 Results - Labs CBC & Chem 7: 03/17/18 05:46 03/17/18 05:46 Labs: Laboratory Last Values WBC 11.9 K/mm3 (4.5-11.0) H 03/17/18 05:46 RBC 4.52 M/mm3 (3.65-5.03) 03/17/18 05:46 Hgb 12.3 gm/dl (10.1-14.3) 03/17/18 05:46 Hct 35.7 % (30.3-42.9) 03/17/18 05:46 MCV 79 fl (79-97) 03/17/18 05:46 MCH 27 pg (28-32) L 03/17/18 05:46 MCHC 34 % (30-34) 03/17/18 05:46 RDW 15.1 % (13.2-15.2) 03/17/18 05:46 Plt Count 232 K/mm3 (140-440) 03/17/18 05:46 Add Manual Diff Complete 03/16/18 06:56 Total Counted 100 03/16/18 06:56 Seg Neuts % (Manual) 96.0 % (40.0-70.0) H 03/16/18 06:56 Band Neutrophils % 0 % 03/16/18 06:56 Lymphocytes % (Manual) 4.0 % (13.4-35.0) L 03/16/18 06:56 Reactive Lymphs % (Man) 0 % 03/16/18 06:56 Monocytes % (Manual) 0 % (0.0-7.3) 03/16/18 06:56 Eosinophils % (Manual) 0 % (0.0-4.3) 03/16/18 06:56 Basophils % (Manual) 0 % (0.0-1.8) 03/16/18 06:56 Metamyelocytes % 0 % 03/16/18 06:56 Myelocytes % 0 % 03/16/18 06:56 Promyelocytes % 0 % 03/16/18 06:56 Blast Cells % 0 % 03/16/18 06:56 Nucleated RBC % Not Reportable 03/16/18 06:56 Seg Neutrophils # Man 9.8 K/mm3 (1.8-7.7) H 03/16/18 06:56 Band Neutrophils # 0.0 K/mm3 03/16/18 06:56 Lymphocytes # (Manual) 0.4 K/mm3 (1.2-5.4) L 03/16/18 06:56 Abs React Lymphs (Man) 0.0 K/mm3 03/16/18 06:56 Monocytes # (Manual) 0.0 K/mm3 (0.0-0.8) 03/16/18 06:56 Eosinophils # (Manual) 0.0 K/mm3 (0.0-0.4) 03/16/18 06:56 Basophils # (Manual) 0.0 K/mm3 (0.0-0.1) 03/16/18 06:56 Metamyelocytes # 0.0 K/mm3 03/16/18 06:56 Myelocytes # 0.0 K/mm3 03/16/18 06:56 Promyelocytes # 0.0 K/mm3 03/16/18 06:56 Blast Cells # 0.0 K/mm3 03/16/18 06:56 WBC Morphology Not Reportable 03/16/18 06:56 Hypersegmented Neuts Not Reportable 03/16/18 06:56 Hyposegmented Neuts Not Reportable 03/16/18 06:56 Hypogranular Neuts Not Reportable 03/16/18 06:56 Smudge Cells Not Reportable 03/16/18 06:56 Toxic Granulation Not Reportable 03/16/18 06:56 Toxic Vacuolation Not Reportable 03/16/18 06:56 Dohle Bodies Not Reportable 03/16/18 06:56 Pelger-Huet Anomaly Not Reportable 03/16/18 06:56 Wes Rods Not Reportable 03/16/18 06:56 Platelet Estimate Cons 03/16/18 06:56 Clumped Platelets Not Reportable 03/16/18 06:56 Plt Clumps, EDTA Not Reportable 03/16/18 06:56 Large Platelets Few 03/16/18 06:56 Giant Platelets Not Reportable 03/16/18 06:56 Platelet Satelliting Not Reportable 03/16/18 06:56 Plt Morphology Comment Not Reportable 03/16/18 06:56 RBC Morphology Not Reportable 03/16/18 06:56 Dimorphic RBCs Not Reportable 03/16/18 06:56 Polychromasia Not Reportable 03/16/18 06:56 Hypochromasia Not Reportable 03/16/18 06:56 Poikilocytosis Not Reportable 03/16/18 06:56 Anisocytosis 1+ 03/16/18 06:56 Microcytosis Not Reportable 03/16/18 06:56 Macrocytosis Not Reportable 03/16/18 06:56 Spherocytes Not Reportable 03/16/18 06:56 Pappenheimer Bodies Not Reportable 03/16/18 06:56 Sickle Cells Not Reportable 03/16/18 06:56 Target Cells Not Reportable 03/16/18 06:56 Tear Drop Cells Not Reportable 03/16/18 06:56 Ovalocytes Not Reportable 03/16/18 06:56 Helmet Cells Not Reportable 03/16/18 06:56 [place] Bodies Not Reportable 03/16/18 06:56 [place] Rings Not Reportable 03/16/18 06:56 [place] Cells Not Reportable 03/16/18 06:56 Bite Cells Not Reportable 03/16/18 06:56 Crenated Cell Not Reportable 03/16/18 06:56 Elliptocytes Not Reportable 03/16/18 06:56 Acanthocytes (Spur) Not Reportable 03/16/18 06:56 Rouleaux Not Reportable 03/16/18 06:56 Hemoglobin C Crystals Not Reportable 03/16/18 06:56 Schistocytes Not Reportable 03/16/18 06:56 Malaria parasites Not Reportable 03/16/18 06:56 Riki Bodies Not Reportable 03/16/18 06:56 Hem Pathologist Commnt No 03/16/18 06:56 PT 13.7 Sec. (12.2-14.9) 03/17/18 05:46 INR 1.00 (0.87-1.13) 03/17/18 05:46 APTT 29.5 Sec. (24.2-36.6) 03/17/18 05:46 POC ABG pH 7.449 (7.35-7.45) 03/15/18 03:34 POC ABG pCO2 37.1 (35-45) 03/15/18 03:34 POC ABG pO2 75 (80-105) L 03/15/18 03:34 POC ABG HCO3 25.7 03/15/18 03:34 POC ABG Total CO2 27 03/15/18 03:34 POC ABG O2 Sat 96 03/15/18 03:34 POC ABG Base Excess 2 03/15/18 03:34 FiO2 60 % 03/15/18 03:34 Sodium 139 mmol/L (137-145) 03/17/18 05:46 Potassium 3.8 mmol/L (3.6-5.0) 03/17/18 05:46 Chloride 95.3 mmol/L (98-107) L 03/17/18 05:46 Carbon Dioxide 28 mmol/L (22-30) 03/17/18 05:46 Anion Gap 20 mmol/L 03/17/18 05:46 BUN 49 mg/dL (7-17) H 03/17/18 05:46 Creatinine 1.7 mg/dL (0.7-1.2) H 03/17/18 05:46 Estimated GFR 36 ml/min 03/17/18 05:46 BUN/Creatinine Ratio 29 % 03/17/18 05:46 Glucose 238 mg/dL (65-100) H 03/17/18 05:46 POC Glucose 429 (70-105) H 03/17/18 11:56 Calcium 8.9 mg/dL (8.4-10.2) 03/17/18 05:46 Total Bilirubin 0.50 mg/dL (0.1-1.2) 03/14/18 13:33 AST 13 units/L (5-40) 03/14/18 13:33 ALT 11 units/L (7-56) 03/14/18 13:33 Alkaline Phosphatase 175 units/L (35-129) H 03/14/18 13:33 Total Creatine Kinase 212 units/L (30-135) H 03/15/18 17:06 CK-MB (CK-2) 23.4 ng/mL (0.0-4.0) H 03/15/18 17:06 CK-MB (CK-2) Rel Index 11.0 (0-4) H 03/15/18 17:06 Troponin T 0.410 ng/mL (0.00-0.029) H* D 03/15/18 17:06 NT-Pro-B Natriuret Pep 1312 pg/mL (0-900) H 03/14/18 13:33 Total Protein 7.1 g/dL (6.3-8.2) 03/14/18 13:33 Albumin 3.6 g/dL (3.9-5) L 03/14/18 13:33 Albumin/Globulin Ratio 1.0 % 03/14/18 13:33 Triglycerides 60 mg/dL (2-149) 03/15/18 08:32 Cholesterol 155 mg/dL (50-199) 03/15/18 08:32 LDL Cholesterol Direct 66 mg/dL (50-130) 03/15/18 08:32 HDL Cholesterol 90 mg/dL (40-59) H 03/15/18 08:32 Cholesterol/HDL Ratio 1.72 % 03/15/18 08:32
[2018-03-18 06:52] LABS: Calcium 8.6 mg/dL (8.4-10.2)
[2018-03-18] MEDS: HumuLIN R SUB-Q SCH ×4 (07:30→21:47)
[2018-03-18] MEDS: GLUCOPHAGE PO SCH (08:31)
--- NOTE | 2018-03-18 09:10 | Progress Note ---
Assessment and Plan Assessment and plan: Acute respiratory failure with hypoxia- continue oxygen, weaned off bipap Acute on chronic CHF exacerbation, systolic and diastolic dysfunction; continue diuretics, cardiology following -planned for cath, but has CATRACHO, hold diuretics, and gentle hydration CATRACHO/vasomotor nephropathy renal consult, hold diuretics, and gentle hydration COPD is highly doubted previous pulmonary notes from dr steven reviewed, respiratory failure likely due to chf taper steroids Hypertension continue bp meds Diabetes type 2, with high glc likely due to steroids; continue insulins History Interval history: Review of systems Constitutional: No fevers, no malaise, no joint pains CVS: No chest pain, c/o orthopnea, c/o dyspnea on exertion, c/o pedal edema- both improving GI: No abdominal pain, no diarrhea, no vomiting, no constipation Respiratory: sob is improving, no wheezing, no coughing Hospitalist Physical - Physical exam Narrative exam: General.: Appears well, no distress, nontoxic HEENT: Moist mucous membranes, extraocular muscles intact, no lymphadenopathy Neck: supple Cardiac: S1-S2 heard Lungs: Diminished air entry in bases Abdomen: soft , nontender, nondistended, bowel sounds positive Extremities:2+ bipedal edema, with chronic skin changes likely from chronic swelling; edema is reduced Skin: no rash or lesions Neurologic: no gross focal deficits Psych: appropriate behavior, appropriate mood, corporative, judgment intact - Constitutional Vitals: Temp Pulse Resp BP Pulse Ox 98.3 F 78 20 127/62 95 03/18/18 06:00 03/18/18 06:00 03/18/18 06:00 03/18/18 06:00 03/18/18 06:00 Results - Labs CBC & Chem 7: 03/20/18 05:24 03/21/18 07:02 Labs: Laboratory Last Values WBC 11.9 K/mm3 (4.5-11.0) H 03/17/18 05:46 RBC 4.52 M/mm3 (3.65-5.03) 03/17/18 05:46 Hgb 12.3 gm/dl (10.1-14.3) 03/17/18 05:46 Hct 35.7 % (30.3-42.9) 03/17/18 05:46 MCV 79 fl (79-97) 03/17/18 05:46 MCH 27 pg (28-32) L 03/17/18 05:46 MCHC 34 % (30-34) 03/17/18 05:46 RDW 15.1 % (13.2-15.2) 03/17/18 05:46 Plt Count 232 K/mm3 (140-440) 03/17/18 05:46 Add Manual Diff Complete 03/16/18 06:56 Total Counted 100 03/16/18 06:56 Seg Neuts % (Manual) 96.0 % (40.0-70.0) H 03/16/18 06:56 Band Neutrophils % 0 % 03/16/18 06:56 Lymphocytes % (Manual) 4.0 % (13.4-35.0) L 03/16/18 06:56 Reactive Lymphs % (Man) 0 % 03/16/18 06:56 Monocytes % (Manual) 0 % (0.0-7.3) 03/16/18 06:56 Eosinophils % (Manual) 0 % (0.0-4.3) 03/16/18 06:56 Basophils % (Manual) 0 % (0.0-1.8) 03/16/18 06:56 Metamyelocytes % 0 % 03/16/18 06:56 Myelocytes % 0 % 03/16/18 06:56 Promyelocytes % 0 % 03/16/18 06:56 Blast Cells % 0 % 03/16/18 06:56 Nucleated RBC % Not Reportable 03/16/18 06:56 Seg Neutrophils # Man 9.8 K/mm3 (1.8-7.7) H 03/16/18 06:56 Band Neutrophils # 0.0 K/mm3 03/16/18 06:56 Lymphocytes # (Manual) 0.4 K/mm3 (1.2-5.4) L 03/16/18 06:56 Abs React Lymphs (Man) 0.0 K/mm3 03/16/18 06:56 Monocytes # (Manual) 0.0 K/mm3 (0.0-0.8) 03/16/18 06:56 Eosinophils # (Manual) 0.0 K/mm3 (0.0-0.4) 03/16/18 06:56 Basophils # (Manual) 0.0 K/mm3 (0.0-0.1) 03/16/18 06:56 Metamyelocytes # 0.0 K/mm3 03/16/18 06:56 Myelocytes # 0.0 K/mm3 03/16/18 06:56 Promyelocytes # 0.0 K/mm3 03/16/18 06:56 Blast Cells # 0.0 K/mm3 03/16/18 06:56 WBC Morphology Not Reportable 03/16/18 06:56 Hypersegmented Neuts Not Reportable 03/16/18 06:56 Hyposegmented Neuts Not Reportable 03/16/18 06:56 Hypogranular Neuts Not Reportable 03/16/18 06:56 Smudge Cells Not Reportable 03/16/18 06:56 Toxic Granulation Not Reportable 03/16/18 06:56 Toxic Vacuolation Not Reportable 03/16/18 06:56 Dohle Bodies Not Reportable 03/16/18 06:56 Pelger-Huet Anomaly Not Reportable 03/16/18 06:56 Wes Rods Not Reportable 03/16/18 06:56 Platelet Estimate Cons 03/16/18 06:56 Clumped Platelets Not Reportable 03/16/18 06:56 Plt Clumps, EDTA Not Reportable 03/16/18 06:56 Large Platelets Few 03/16/18 06:56 Giant Platelets Not Reportable 03/16/18 06:56 Platelet Satelliting Not Reportable 03/16/18 06:56 Plt Morphology Comment Not Reportable 03/16/18 06:56 RBC Morphology Not Reportable 03/16/18 06:56 Dimorphic RBCs Not Reportable 03/16/18 06:56 Polychromasia Not Reportable 03/16/18 06:56 Hypochromasia Not Reportable 03/16/18 06:56 Poikilocytosis Not Reportable 03/16/18 06:56 Anisocytosis 1+ 03/16/18 06:56 Microcytosis Not Reportable 03/16/18 06:56 Macrocytosis Not Reportable 03/16/18 06:56 Spherocytes Not Reportable 03/16/18 06:56 Pappenheimer Bodies Not Reportable 03/16/18 06:56 Sickle Cells Not Reportable 03/16/18 06:56 Target Cells Not Reportable 03/16/18 06:56 Tear Drop Cells Not Reportable 03/16/18 06:56 Ovalocytes Not Reportable 03/16/18 06:56 Helmet Cells Not Reportable 03/16/18 06:56 [place] Bodies Not Reportable 03/16/18 06:56 [place] Rings Not Reportable 03/16/18 06:56 [place] Cells Not Reportable 03/16/18 06:56 Bite Cells Not Reportable 03/16/18 06:56 Crenated Cell Not Reportable 03/16/18 06:56 Elliptocytes Not Reportable 03/16/18 06:56 Acanthocytes (Spur) Not Reportable 03/16/18 06:56 Rouleaux Not Reportable 03/16/18 06:56 Hemoglobin C Crystals Not Reportable 03/16/18 06:56 Schistocytes Not Reportable 03/16/18 06:56 Malaria parasites Not Reportable 03/16/18 06:56 Riki Bodies Not Reportable 03/16/18 06:56 Hem Pathologist Commnt No 03/16/18 06:56 PT 13.7 Sec. (12.2-14.9) 03/17/18 05:46 INR 1.00 (0.87-1.13) 03/17/18 05:46 APTT 29.5 Sec. (24.2-36.6) 03/17/18 05:46 POC ABG pH 7.449 (7.35-7.45) 03/15/18 03:34 POC ABG pCO2 37.1 (35-45) 03/15/18 03:34 POC ABG pO2 75 (80-105) L 03/15/18 03:34 POC ABG HCO3 25.7 03/15/18 03:34 POC ABG Total CO2 27 03/15/18 03:34 POC ABG O2 Sat 96 03/15/18 03:34 POC ABG Base Excess 2 03/15/18 03:34 FiO2 60 % 03/15/18 03:34 Sodium 136 mmol/L (137-145) L 03/18/18 05:30 Potassium 3.4 mmol/L (3.6-5.0) L 03/18/18 05:30 Chloride 95.1 mmol/L (98-107) L 03/18/18 05:30 Carbon Dioxide 27 mmol/L (22-30) 03/18/18 05:30 Anion Gap 17 mmol/L 03/18/18 05:30 BUN 51 mg/dL (7-17) H 03/18/18 05:30 Creatinine 1.4 mg/dL (0.7-1.2) H 03/18/18 05:30 Estimated GFR 45 ml/min 03/18/18 05:30 BUN/Creatinine Ratio 36 % 03/18/18 05:30 Glucose 197 mg/dL (65-100) H 03/18/18 05:30 POC Glucose 225 (70-105) H 03/18/18 07:48 Hemoglobin A1c 9.9 % (4-6) H 03/18/18 05:30 Calcium 8.6 mg/dL (8.4-10.2) 03/18/18 05:30 Total Bilirubin 0.50 mg/dL (0.1-1.2) 03/14/18 13:33 AST 13 units/L (5-40) 03/14/18 13:33 ALT 11 units/L (7-56) 03/14/18 13:33 Alkaline Phosphatase 175 units/L (35-129) H 03/14/18 13:33 Total Creatine Kinase 212 units/L (30-135) H 03/15/18 17:06 CK-MB (CK-2) 23.4 ng/mL (0.0-4.0) H 03/15/18 17:06 CK-MB (CK-2) Rel Index 11.0 (0-4) H 03/15/18 17:06 Troponin T 0.410 ng/mL (0.00-0.029) H* D 03/15/18 17:06 NT-Pro-B Natriuret Pep 1312 pg/mL (0-900) H 03/14/18 13:33 Total Protein 7.1 g/dL (6.3-8.2) 03/14/18 13:33 Albumin 3.6 g/dL (3.9-5) L 03/14/18 13:33 Albumin/Globulin Ratio 1.0 % 03/14/18 13:33 Triglycerides 60 mg/dL (2-149) 03/15/18 08:32 Cholesterol 155 mg/dL (50-199) 03/15/18 08:32 LDL Cholesterol Direct 66 mg/dL (50-130) 03/15/18 08:32 HDL Cholesterol 90 mg/dL (40-59) H 03/15/18 08:32 Cholesterol/HDL Ratio 1.72 % 03/15/18 08:32
[2018-03-18] MEDS ORDERED: K-DUR PO ONE (10:04)
[2018-03-18] MEDS ORDERED: KCL 40 MEQ in NACL 0.45% 500 ML IV SCH (10:15)
--- NOTE | 2018-03-18 11:28 | Progress Note ---
Assessment and Plan - Patient Problems (1) CHF (congestive heart failure) Current Visit: No Status: Acute Qualifiers: Qualified Code(s): I50.9 - Heart failure, unspecified Plan to address problem: Further evaluation of heart failure with a right and left heart catheterization on Tuesday if creatinine returns to baseline. Subjective Date of service: 03/18/18 Interval history: Patient's cardiac catheterization is on hold due to the development of acute renal failure. She otherwise feels well, no chest pain and shortness of breath has resolved. Creatinine is currently 1.7. Objective Vital Signs Temp Pulse Resp BP BP Pulse Ox 03/18/18 06:00 98.3 F 78 20 127/62 95 03/18/18 00:03 98.2 F 76 20 136/65 97 03/17/18 21:32 98.5 F 82 18 125/53 95 03/17/18 20:00 85 03/17/18 15:00 99.1 F 83 20 126/71 97 03/17/18 12:11 86 122/64 - Physical Examination General: No Apparent Distress HEENT: Positive: PERRL Neck: Positive: neck supple Cardiac: Positive: Reg Rate and Rhythm Lungs: Positive: Decreased Breath Sounds Neuro: Positive: Grossly Intact Abdomen: Positive: Soft Skin: Positive: Clear Extremities: Absent: edema - Labs and Meds Comprehensive Metabolic Panel 03/18/18 Range/Units 05:30 Sodium 136 L (137-145) mmol/L Potassium 3.4 L (3.6-5.0) mmol/L Chloride 95.1 L (98-107) mmol/L Carbon Dioxide 27 (22-30) mmol/L BUN 51 H (7-17) mg/dL Creatinine 1.4 H (0.7-1.2) mg/dL Glucose 197 H (65-100) mg/dL Calcium 8.6 (8.4-10.2) mg/dL - Imaging and Cardiology EKG: image reviewed
[2018-03-18] MEDS: KCL 10MEQ/100ML 10 MEQ/100 ML BAG IV SCH ×4 (14:04→23:50)
[2018-03-18] MEDS: ZESTRIL PO SCH (14:05)
[2018-03-18] MEDS: ASPIRIN PO SCH (14:05)
[2018-03-18] MEDS: PLAVIX PO SCH (14:05)
[2018-03-18] MEDS: PEPCID PO SCH ×2 (14:05→21:47)
[2018-03-18] MEDS: IMDUR PO SCH (14:05)
[2018-03-18] MEDS: COREG PO SCH ×2 (14:06→21:47)
[2018-03-18] MEDS: SODIUM CHLORIDE FLUSH SYRINGE 10 ML IV SCH ×2 (14:06→22:25)
[2018-03-18] MEDS: LOVENOX SUB-Q SCH (14:06)
[2018-03-18] MEDS ORDERED: NACL 0.9% 250ML 250 ML IV ONE (21:59)
[2018-03-19] MEDS: HumuLIN R SUB-Q SCH ×3 (08:17→22:30)
[2018-03-19] MEDS ORDERED: NACL 0.9% 500 ML 500 ML IV SCH (10:00)
[2018-03-19 10:05] LABS: BUN/Creatinine Ratio 40; Blood Urea Nitrogen 36 mg/dL (7-17); Calcium 8.7 mg/dL (8.4-10.2); Hemolysis Index 37
[2018-03-19] MEDS: LOVENOX SUB-Q SCH (10:58)
[2018-03-19] MEDS: COREG PO SCH ×2 (11:00→22:30)
[2018-03-19] MEDS: PEPCID PO SCH ×2 (11:00→22:30)
[2018-03-19] MEDS: PLAVIX PO SCH (11:00)
[2018-03-19] MEDS: IMDUR PO SCH (11:00)
[2018-03-19] MEDS: ZESTRIL PO SCH (11:00)
[2018-03-19] MEDS: ASPIRIN PO SCH (11:00)
[2018-03-19] MEDS: NACL 0.9% 1000 ML 1,000 ML IV SCH (11:28)
--- NOTE | 2018-03-19 11:31 | Progress Note ---
Assessment and Plan - Patient Problems (1) CHF (congestive heart failure) Current Visit: No Status: Acute Qualifiers: Qualified Code(s): I50.9 - Heart failure, unspecified Plan to address problem: Right and left heart cardiac catheterization is scheduled for the a.m. Subjective Date of service: 03/19/18 Interval history: Patient's cardiac catheterization is on hold due to the development of acute renal failure. She otherwise feels well, no chest pain and shortness of breath has resolved. Creatinine has returned to baseline of 0.9. Objective Vital Signs Temp Pulse Resp BP BP Pulse Ox 03/19/18 11:00 67 134/71 03/19/18 07:43 97.8 F 67 20 134/71 100 03/19/18 04:00 60 03/19/18 03:50 98.1 F 60 18 138/76 95 03/19/18 03:33 69 99 03/19/18 00:15 98.1 F 72 20 144/79 03/19/18 00:13 144/79 03/18/18 21:29 97 03/18/18 20:13 70 149/88 96 03/18/18 20:10 98.7 F 74 20 149/88 98 - Physical Examination General: No Apparent Distress HEENT: Positive: PERRL Neck: Positive: neck supple Cardiac: Positive: Reg Rate and Rhythm Lungs: Positive: Decreased Breath Sounds Neuro: Positive: Grossly Intact Abdomen: Positive: Soft Skin: Positive: Clear Extremities: Absent: edema - Labs and Meds Comprehensive Metabolic Panel 03/19/18 Range/Units 08:58 Sodium 138 (137-145) mmol/L Potassium 4.0 (3.6-5.0) mmol/L Chloride 100.9 (98-107) mmol/L Carbon Dioxide 27 (22-30) mmol/L BUN 36 H (7-17) mg/dL Creatinine 0.9 (0.7-1.2) mg/dL Glucose 99 (65-100) mg/dL Calcium 8.7 (8.4-10.2) mg/dL - Imaging and Cardiology EKG: image reviewed
--- NOTE | 2018-03-19 13:45 | Progress Note ---
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 CATRACHO/vasomotor nephropathy renal consult, hold diuretics, and gentle hydration COPD is highly doubted previous pulmonary notes from dr steven reviewed, respiratory failure likely due to chf taper steroids Hypertension continue bp meds Diabetes type 2, with high glc likely due to steroids; continue insulins History Interval history: Review of systems Constitutional: No fevers, no malaise, no joint pains CVS: No chest pain, c/o orthopnea, c/o dyspnea on exertion, c/o pedal edema- both improving GI: No abdominal pain, no diarrhea, no vomiting, no constipation Respiratory: sob is improving, no wheezing, no coughing Hospitalist Physical - Physical exam Narrative exam: General.: Appears well, no distress, nontoxic HEENT: Moist mucous membranes, extraocular muscles intact, no lymphadenopathy Neck: supple Cardiac: S1-S2 heard Lungs: Diminished air entry in bases Abdomen: soft , nontender, nondistended, bowel sounds positive Extremities:2+ bipedal edema, with chronic skin changes likely from chronic swelling; edema is reduced Skin: no rash or lesions Neurologic: no gross focal deficits Psych: appropriate behavior, appropriate mood, corporative, judgment intact - Constitutional Vitals: Temp Pulse Resp BP Pulse Ox 97.8 F 67 20 134/71 100 03/19/18 07:43 03/19/18 11:00 03/19/18 07:43 03/19/18 11:00 03/19/18 07:43 Results - Labs CBC & Chem 7: 03/20/18 05:24 03/21/18 07:02 Labs: Laboratory Last Values WBC 11.9 K/mm3 (4.5-11.0) H 03/17/18 05:46 RBC 4.52 M/mm3 (3.65-5.03) 03/17/18 05:46 Hgb 12.3 gm/dl (10.1-14.3) 03/17/18 05:46 Hct 35.7 % (30.3-42.9) 03/17/18 05:46 MCV 79 fl (79-97) 03/17/18 05:46 MCH 27 pg (28-32) L 03/17/18 05:46 MCHC 34 % (30-34) 03/17/18 05:46 RDW 15.1 % (13.2-15.2) 03/17/18 05:46 Plt Count 232 K/mm3 (140-440) 03/17/18 05:46 Add Manual Diff Complete 03/16/18 06:56 Total Counted 100 03/16/18 06:56 Seg Neuts % (Manual) 96.0 % (40.0-70.0) H 03/16/18 06:56 Band Neutrophils % 0 % 03/16/18 06:56 Lymphocytes % (Manual) 4.0 % (13.4-35.0) L 03/16/18 06:56 Reactive Lymphs % (Man) 0 % 03/16/18 06:56 Monocytes % (Manual) 0 % (0.0-7.3) 03/16/18 06:56 Eosinophils % (Manual) 0 % (0.0-4.3) 03/16/18 06:56 Basophils % (Manual) 0 % (0.0-1.8) 03/16/18 06:56 Metamyelocytes % 0 % 03/16/18 06:56 Myelocytes % 0 % 03/16/18 06:56 Promyelocytes % 0 % 03/16/18 06:56 Blast Cells % 0 % 03/16/18 06:56 Nucleated RBC % Not Reportable 03/16/18 06:56 Seg Neutrophils # Man 9.8 K/mm3 (1.8-7.7) H 03/16/18 06:56 Band Neutrophils # 0.0 K/mm3 03/16/18 06:56 Lymphocytes # (Manual) 0.4 K/mm3 (1.2-5.4) L 03/16/18 06:56 Abs React Lymphs (Man) 0.0 K/mm3 03/16/18 06:56 Monocytes # (Manual) 0.0 K/mm3 (0.0-0.8) 03/16/18 06:56 Eosinophils # (Manual) 0.0 K/mm3 (0.0-0.4) 03/16/18 06:56 Basophils # (Manual) 0.0 K/mm3 (0.0-0.1) 03/16/18 06:56 Metamyelocytes # 0.0 K/mm3 03/16/18 06:56 Myelocytes # 0.0 K/mm3 03/16/18 06:56 Promyelocytes # 0.0 K/mm3 03/16/18 06:56 Blast Cells # 0.0 K/mm3 03/16/18 06:56 WBC Morphology Not Reportable 03/16/18 06:56 Hypersegmented Neuts Not Reportable 03/16/18 06:56 Hyposegmented Neuts Not Reportable 03/16/18 06:56 Hypogranular Neuts Not Reportable 03/16/18 06:56 Smudge Cells Not Reportable 03/16/18 06:56 Toxic Granulation Not Reportable 03/16/18 06:56 Toxic Vacuolation Not Reportable 03/16/18 06:56 Dohle Bodies Not Reportable 03/16/18 06:56 Pelger-Huet Anomaly Not Reportable 03/16/18 06:56 Wes Rods Not Reportable 03/16/18 06:56 Platelet Estimate Cons 03/16/18 06:56 Clumped Platelets Not Reportable 03/16/18 06:56 Plt Clumps, EDTA Not Reportable 03/16/18 06:56 Large Platelets Few 03/16/18 06:56 Giant Platelets Not Reportable 03/16/18 06:56 Platelet Satelliting Not Reportable 03/16/18 06:56 Plt Morphology Comment Not Reportable 03/16/18 06:56 RBC Morphology Not Reportable 03/16/18 06:56 Dimorphic RBCs Not Reportable 03/16/18 06:56 Polychromasia Not Reportable 03/16/18 06:56 Hypochromasia Not Reportable 03/16/18 06:56 Poikilocytosis Not Reportable 03/16/18 06:56 Anisocytosis 1+ 03/16/18 06:56 Microcytosis Not Reportable 03/16/18 06:56 Macrocytosis Not Reportable 03/16/18 06:56 Spherocytes Not Reportable 03/16/18 06:56 Pappenheimer Bodies Not Reportable 03/16/18 06:56 Sickle Cells Not Reportable 03/16/18 06:56 Target Cells Not Reportable 03/16/18 06:56 Tear Drop Cells Not Reportable 03/16/18 06:56 Ovalocytes Not Reportable 03/16/18 06:56 Helmet Cells Not Reportable 03/16/18 06:56 Evans-[place] Bodies Not Reportable 03/16/18 06:56 [place] Rings Not Reportable 03/16/18 06:56 [place] Cells Not Reportable 03/16/18 06:56 Bite Cells Not Reportable 03/16/18 06:56 Crenated Cell Not Reportable 03/16/18 06:56 Elliptocytes Not Reportable 03/16/18 06:56 Acanthocytes (Spur) Not Reportable 03/16/18 06:56 Rouleaux Not Reportable 03/16/18 06:56 Hemoglobin C Crystals Not Reportable 03/16/18 06:56 Schistocytes Not Reportable 03/16/18 06:56 Malaria parasites Not Reportable 03/16/18 06:56 Riki Bodies Not Reportable 03/16/18 06:56 Hem Pathologist Commnt No 03/16/18 06:56 PT 13.7 Sec. (12.2-14.9) 03/17/18 05:46 INR 1.00 (0.87-1.13) 03/17/18 05:46 APTT 29.5 Sec. (24.2-36.6) 03/17/18 05:46 POC ABG pH 7.449 (7.35-7.45) 03/15/18 03:34 POC ABG pCO2 37.1 (35-45) 03/15/18 03:34 POC ABG pO2 75 (80-105) L 03/15/18 03:34 POC ABG HCO3 25.7 03/15/18 03:34 POC ABG Total CO2 27 03/15/18 03:34 POC ABG O2 Sat 96 03/15/18 03:34 POC ABG Base Excess 2 03/15/18 03:34 FiO2 60 % 03/15/18 03:34 Sodium 138 mmol/L (137-145) 03/19/18 08:58 Potassium 4.0 mmol/L (3.6-5.0) 03/19/18 08:58 Chloride 100.9 mmol/L (98-107) 03/19/18 08:58 Carbon Dioxide 27 mmol/L (22-30) 03/19/18 08:58 Anion Gap 14 mmol/L 03/19/18 08:58 BUN 36 mg/dL (7-17) H 03/19/18 08:58 Creatinine 0.9 mg/dL (0.7-1.2) 03/19/18 08:58 Estimated GFR > 60 ml/min 03/19/18 08:58 BUN/Creatinine Ratio 40 % 03/19/18 08:58 Glucose 99 mg/dL (65-100) 03/19/18 08:58 POC Glucose 191 (70-105) H 03/19/18 11:56 Hemoglobin A1c 9.9 % (4-6) H 03/18/18 05:30 Calcium 8.7 mg/dL (8.4-10.2) 03/19/18 08:58 Total Bilirubin 0.50 mg/dL (0.1-1.2) 03/14/18 13:33 AST 13 units/L (5-40) 03/14/18 13:33 ALT 11 units/L (7-56) 03/14/18 13:33 Alkaline Phosphatase 175 units/L (35-129) H 03/14/18 13:33 Total Creatine Kinase 212 units/L (30-135) H 03/15/18 17:06 CK-MB (CK-2) 23.4 ng/mL (0.0-4.0) H 03/15/18 17:06 CK-MB (CK-2) Rel Index 11.0 (0-4) H 03/15/18 17:06 Troponin T 0.410 ng/mL (0.00-0.029) H* D 03/15/18 17:06 NT-Pro-B Natriuret Pep 1312 pg/mL (0-900) H 03/14/18 13:33 Total Protein 7.1 g/dL (6.3-8.2) 03/14/18 13:33 Albumin 3.6 g/dL (3.9-5) L 03/14/18 13:33 Albumin/Globulin Ratio 1.0 % 03/14/18 13:33 Triglycerides 60 mg/dL (2-149) 03/15/18 08:32 Cholesterol 155 mg/dL (50-199) 03/15/18 08:32 LDL Cholesterol Direct 66 mg/dL (50-130) 03/15/18 08:32 HDL Cholesterol 90 mg/dL (40-59) H 03/15/18 08:32 Cholesterol/HDL Ratio 1.72 % 03/15/18 08:32
[2018-03-19] MEDS: SODIUM CHLORIDE FLUSH SYRINGE 10 ML IV SCH (22:29)
[2018-03-20] MEDS: NACL 0.9% 1000 ML 1,000 ML IV SCH (03:45)
[2018-03-20 06:07] LABS: INR 1.03 (0.87-1.13); Partial Thromboplastin Time 31.8 Sec. (24.2-36.6)
[2018-03-20 06:14] LABS: BUN/Creatinine Ratio 27; Blood Urea Nitrogen 27 mg/dL (7-17); Calcium 8.6 mg/dL (8.4-10.2); Hemolysis Index 56
[2018-03-20 06:15] LABS: Hematocrit 38.6 % (30.3-42.9); Hemoglobin 13.5 gm/dl (10.1-14.3); Mean Corpuscular HGB Conc 35 % (30-34); Mean Corpuscular Hemoglobin 28 pg (28-32); Mean Corpuscular Volume 79 fl (79-97); Platelet Count 213 K/mm3 (140-440); Red Blood Count 4.88 M/mm3 (3.65-5.03); Red Cell Distribution Width 15.2 % (13.2-15.2)
[2018-03-20] MEDS: SODIUM CHLORIDE FLUSH SYRINGE 10 ML IV SCH ×3 (11:37→22:53)
[2018-03-20] MEDS: HumuLIN R SUB-Q SCH ×5 (11:37→22:49)
--- NOTE | 2018-03-20 12:22 | Progress Note ---
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 CATRACHO/vasomotor nephropathy renal consult, hold diuretics, and gentle hydration COPD is highly doubted previous pulmonary notes from dr steven reviewed, respiratory failure likely due to chf taper steroids Hypertension continue bp meds Diabetes type 2, with high glc likely due to steroids; continue insulins History Interval history: Review of systems Constitutional: No fevers, no malaise, no joint pains CVS: No chest pain, c/o orthopnea, c/o dyspnea on exertion, c/o pedal edema- both improving GI: No abdominal pain, no diarrhea, no vomiting, no constipation Respiratory: sob is improving, no wheezing, no coughing Hospitalist Physical - Physical exam Narrative exam: General.: Appears well, no distress, nontoxic HEENT: Moist mucous membranes, extraocular muscles intact, no lymphadenopathy Neck: supple Cardiac: S1-S2 heard Lungs: Diminished air entry in bases Abdomen: soft , nontender, nondistended, bowel sounds positive Extremities:2+ bipedal edema, with chronic skin changes likely from chronic swelling; edema is reduced Skin: no rash or lesions Neurologic: no gross focal deficits Psych: appropriate behavior, appropriate mood, corporative, judgment intact - Constitutional Vitals: Temp Pulse Resp BP Pulse Ox 98.1 F 67 16 158/84 100 03/20/18 07:59 03/20/18 10:00 03/20/18 07:59 03/20/18 07:59 03/20/18 11:30 Results - Labs CBC & Chem 7: 03/20/18 05:24 03/21/18 07:02 Labs: Laboratory Last Values WBC 7.4 K/mm3 (4.5-11.0) 03/20/18 05:24 RBC 4.88 M/mm3 (3.65-5.03) 03/20/18 05:24 Hgb 13.5 gm/dl (10.1-14.3) 03/20/18 05:24 Hct 38.6 % (30.3-42.9) 03/20/18 05:24 MCV 79 fl (79-97) 03/20/18 05:24 MCH 28 pg (28-32) 03/20/18 05:24 MCHC 35 % (30-34) H 03/20/18 05:24 RDW 15.2 % (13.2-15.2) 03/20/18 05:24 Plt Count 213 K/mm3 (140-440) 03/20/18 05:24 Add Manual Diff Complete 03/16/18 06:56 Total Counted 100 03/16/18 06:56 Seg Neuts % (Manual) 96.0 % (40.0-70.0) H 03/16/18 06:56 Band Neutrophils % 0 % 03/16/18 06:56 Lymphocytes % (Manual) 4.0 % (13.4-35.0) L 03/16/18 06:56 Reactive Lymphs % (Man) 0 % 03/16/18 06:56 Monocytes % (Manual) 0 % (0.0-7.3) 03/16/18 06:56 Eosinophils % (Manual) 0 % (0.0-4.3) 03/16/18 06:56 Basophils % (Manual) 0 % (0.0-1.8) 03/16/18 06:56 Metamyelocytes % 0 % 03/16/18 06:56 Myelocytes % 0 % 03/16/18 06:56 Promyelocytes % 0 % 03/16/18 06:56 Blast Cells % 0 % 03/16/18 06:56 Nucleated RBC % Not Reportable 03/16/18 06:56 Seg Neutrophils # Man 9.8 K/mm3 (1.8-7.7) H 03/16/18 06:56 Band Neutrophils # 0.0 K/mm3 03/16/18 06:56 Lymphocytes # (Manual) 0.4 K/mm3 (1.2-5.4) L 03/16/18 06:56 Abs React Lymphs (Man) 0.0 K/mm3 03/16/18 06:56 Monocytes # (Manual) 0.0 K/mm3 (0.0-0.8) 03/16/18 06:56 Eosinophils # (Manual) 0.0 K/mm3 (0.0-0.4) 03/16/18 06:56 Basophils # (Manual) 0.0 K/mm3 (0.0-0.1) 03/16/18 06:56 Metamyelocytes # 0.0 K/mm3 03/16/18 06:56 Myelocytes # 0.0 K/mm3 03/16/18 06:56 Promyelocytes # 0.0 K/mm3 03/16/18 06:56 Blast Cells # 0.0 K/mm3 03/16/18 06:56 WBC Morphology Not Reportable 03/16/18 06:56 Hypersegmented Neuts Not Reportable 03/16/18 06:56 Hyposegmented Neuts Not Reportable 03/16/18 06:56 Hypogranular Neuts Not Reportable 03/16/18 06:56 Smudge Cells Not Reportable 03/16/18 06:56 Toxic Granulation Not Reportable 03/16/18 06:56 Toxic Vacuolation Not Reportable 03/16/18 06:56 Dohle Bodies Not Reportable 03/16/18 06:56 Pelger-Huet Anomaly Not Reportable 03/16/18 06:56 Wes Rods Not Reportable 03/16/18 06:56 Platelet Estimate Cons 03/16/18 06:56 Clumped Platelets Not Reportable 03/16/18 06:56 Plt Clumps, EDTA Not Reportable 03/16/18 06:56 Large Platelets Few 03/16/18 06:56 Giant Platelets Not Reportable 03/16/18 06:56 Platelet Satelliting Not Reportable 03/16/18 06:56 Plt Morphology Comment Not Reportable 03/16/18 06:56 RBC Morphology Not Reportable 03/16/18 06:56 Dimorphic RBCs Not Reportable 03/16/18 06:56 Polychromasia Not Reportable 03/16/18 06:56 Hypochromasia Not Reportable 03/16/18 06:56 Poikilocytosis Not Reportable 03/16/18 06:56 Anisocytosis 1+ 03/16/18 06:56 Microcytosis Not Reportable 03/16/18 06:56 Macrocytosis Not Reportable 03/16/18 06:56 Spherocytes Not Reportable 03/16/18 06:56 Pappenheimer Bodies Not Reportable 03/16/18 06:56 Sickle Cells Not Reportable 03/16/18 06:56 Target Cells Not Reportable 03/16/18 06:56 Tear Drop Cells Not Reportable 03/16/18 06:56 Ovalocytes Not Reportable 03/16/18 06:56 Helmet Cells Not Reportable 03/16/18 06:56 Evans-[place] Bodies Not Reportable 03/16/18 06:56 [place] Rings Not Reportable 03/16/18 06:56 [place] Cells Not Reportable 03/16/18 06:56 Bite Cells Not Reportable 03/16/18 06:56 Crenated Cell Not Reportable 03/16/18 06:56 Elliptocytes Not Reportable 03/16/18 06:56 Acanthocytes (Spur) Not Reportable 03/16/18 06:56 Rouleaux Not Reportable 03/16/18 06:56 Hemoglobin C Crystals Not Reportable 03/16/18 06:56 Schistocytes Not Reportable 03/16/18 06:56 Malaria parasites Not Reportable 03/16/18 06:56 Riki Bodies Not Reportable 03/16/18 06:56 Hem Pathologist Commnt No 03/16/18 06:56 PT 14.0 Sec. (12.2-14.9) 03/20/18 05:24 INR 1.03 (0.87-1.13) 03/20/18 05:24 APTT 31.8 Sec. (24.2-36.6) 03/20/18 05:24 POC ABG pH 7.449 (7.35-7.45) 03/15/18 03:34 POC ABG pCO2 37.1 (35-45) 03/15/18 03:34 POC ABG pO2 75 (80-105) L 03/15/18 03:34 POC ABG HCO3 25.7 03/15/18 03:34 POC ABG Total CO2 27 03/15/18 03:34 POC ABG O2 Sat 96 03/15/18 03:34 POC ABG Base Excess 2 03/15/18 03:34 FiO2 60 % 03/15/18 03:34 Sodium 141 mmol/L (137-145) 03/20/18 05:24 Potassium 4.2 mmol/L (3.6-5.0) 03/20/18 05:24 Chloride 103.0 mmol/L (98-107) 03/20/18 05:24 Carbon Dioxide 27 mmol/L (22-30) 03/20/18 05:24 Anion Gap 15 mmol/L 03/20/18 05:24 BUN 27 mg/dL (7-17) H 03/20/18 05:24 Creatinine 1.0 mg/dL (0.7-1.2) 03/20/18 05:24 Estimated GFR > 60 ml/min 03/20/18 05:24 BUN/Creatinine Ratio 27 % 03/20/18 05:24 Glucose 249 mg/dL (65-100) H 03/20/18 05:24 POC Glucose 258 (70-105) H 03/20/18 05:19 Hemoglobin A1c 9.9 % (4-6) H 03/18/18 05:30 Calcium 8.6 mg/dL (8.4-10.2) 03/20/18 05:24 Total Bilirubin 0.50 mg/dL (0.1-1.2) 03/14/18 13:33 AST 13 units/L (5-40) 03/14/18 13:33 ALT 11 units/L (7-56) 03/14/18 13:33 Alkaline Phosphatase 175 units/L (35-129) H 03/14/18 13:33 Total Creatine Kinase 212 units/L (30-135) H 03/15/18 17:06 CK-MB (CK-2) 23.4 ng/mL (0.0-4.0) H 03/15/18 17:06 CK-MB (CK-2) Rel Index 11.0 (0-4) H 03/15/18 17:06 Troponin T 0.410 ng/mL (0.00-0.029) H* D 03/15/18 17:06 NT-Pro-B Natriuret Pep 1312 pg/mL (0-900) H 03/14/18 13:33 Total Protein 7.1 g/dL (6.3-8.2) 03/14/18 13:33 Albumin 3.6 g/dL (3.9-5) L 03/14/18 13:33 Albumin/Globulin Ratio 1.0 % 03/14/18 13:33 Triglycerides 60 mg/dL (2-149) 03/15/18 08:32 Cholesterol 155 mg/dL (50-199) 03/15/18 08:32 LDL Cholesterol Direct 66 mg/dL (50-130) 03/15/18 08:32 HDL Cholesterol 90 mg/dL (40-59) H 03/15/18 08:32 Cholesterol/HDL Ratio 1.72 % 03/15/18 08:32
[2018-03-20] MEDS ORDERED: HEPARIN/NS 5000 UNIT/500ML(CATH LAB) 1,000 ML IR ONE (14:28)
[2018-03-20] MEDS ORDERED: VERSED ONE (14:29)
[2018-03-20] MEDS ORDERED: XYLOCAINE 2% INFILTRATI ONE ×2 (14:29→14:37)
[2018-03-20] MEDS ORDERED: NACL 0.9% 500 ML 500 ML ONE (14:29)
[2018-03-20] MEDS ORDERED: SUBLIMAZE ONE (14:29)
[2018-03-20] MEDS ORDERED: NACL 0.9% IR ONE ×2 (14:30)
[2018-03-20] MEDS ORDERED: HEPARIN IR ONE ×2 (14:30)
[2018-03-20] MEDS ORDERED: VERSED IV ONE (14:37)
[2018-03-20] MEDS ORDERED: SUBLIMAZE IV ONE (14:37)
[2018-03-20] MEDS: LOVENOX SUB-Q SCH (17:34)
[2018-03-20] MEDS: PLAVIX PO SCH (17:55)
[2018-03-20] MEDS: ZESTRIL PO SCH (17:56)
[2018-03-20] MEDS: COREG PO SCH ×2 (17:56→22:50)
[2018-03-20] MEDS: ASPIRIN PO SCH (18:00)
[2018-03-20] MEDS: IMDUR PO SCH (18:01)
[2018-03-20] MEDS: PEPCID PO SCH ×2 (18:02→22:50)
--- NOTE | 2018-03-20 20:40 | Cardiac Catherization Report ---
REASON FOR PROCEDURE: A 67-year-old woman who presented with recurrent congestive heart failure. The right and left heart catheterization was recommended. The patient was prepped and draped in a sterile fashion after informed consent. Right femoral artery and vein were both entered using Seldinger technique. A 6-[place] sheath was inserted into the artery and an 8-[place] sheath in the vein. A [place]-Patti catheter was then advanced to the pulmonary artery position. A pigtail catheter was advanced into the left ventricle. Simultaneous left and right heart filling pressures were measured. Cardiac output was measured using the thermodilution method. The [place]-Patti catheter was then withdrawn and right heart pressures were recorded on pullback. Left ventricle angiography was then performed following which the pigtail catheter was withdrawn across the aortic valve and transaortic valve pressure was recorded. Finally, we performed selective left and right coronary angiography using #4 right and left Naty catheters. Catheters were then removed, sheath removed, and hemostasis achieved over the arterial site using an Angio-Seal device, and over the venous site manual compression. The patient was returned to the postprocedure unit in stable condition. There were no complications. FINDINGS: HEMODYNAMICS: The mean right atrial pressure was 15. Right ventricular pressure was 40/18. Pulmonary artery pressure was 38/25. The mean pulmonary artery wedge pressure was 20. The left ventricular end diastolic pressure was 23. Ascending aortic pressure was 144/79. There was no significant pressure gradient on pullback across the aortic valve. Cardiac output was 4.58 liters per minute. CORONARY ANGIOGRAPHY: Left main coronary artery contained mild irregularities. There were mild diffuse irregularities of the proximal and mid LAD. We noted a 40-50% stenosis of the mid distal LAD. A medium to large ramus intermedius artery contained a long 60-70% stenosis, which extended from its ostium. The circumflex artery and its obtuse marginal branches contained mild luminal irregularities. The right coronary artery was dominant. This vessel contained a complete occlusion of its mid segment. This was a long segment of a chronic total occlusion. The distal right coronary artery including the right posterior descending branch and posterolateral branch were perfused by left to right collaterals. The left ventricle was severely dilated. There was severe left ventricular systolic dysfunction, diffuse hypokinesis, left ventricular ejection fraction less than 20-25%. CONCLUSION: 1. Mild to moderate increase in right and left heart filling pressures, mild pulmonary hypertension. 2. Coronary artery disease with chronic total occlusion of the mid right coronary artery, and moderate to complex disease of the ramus intermedius artery. 3. Dilated cardiomyopathy with severe left ventricular systolic dysfunction, ejection fraction 20%. The severity of the cardiomyopathy appears disproportionate to the degree of coronary artery disease. RECOMMENDATION: 1. Medical therapy for predominantly nonischemic cardiomyopathy. 2. Medical therapy and aggressive risk factor modification. 3. Chronic total occlusion of the right coronary artery and nonocclusive disease of the ramus intermedius. JOB# [id number] STEVEN/NTS
[2018-03-21] MEDS: NACL 0.9% 1000 ML 1,000 ML IV SCH (01:53)
[2018-03-21 08:29] LABS: BUN/Creatinine Ratio 25; Blood Urea Nitrogen 20 mg/dL (7-17); Calcium 8.8 mg/dL (8.4-10.2); Hemolysis Index 5
[2018-03-21] MEDS: HumuLIN R SUB-Q SCH ×4 (08:41→23:25)
[2018-03-21] MEDS: LOVENOX SUB-Q SCH (10:52)
[2018-03-21] MEDS: COREG PO SCH ×2 (10:52→23:26)
[2018-03-21] MEDS: ZESTRIL PO SCH (10:52)
[2018-03-21] MEDS: PEPCID PO SCH ×2 (10:52→23:26)
[2018-03-21] MEDS: IMDUR PO SCH (10:52)
[2018-03-21] MEDS: SODIUM CHLORIDE FLUSH SYRINGE 10 ML IV SCH ×2 (10:53→23:27)
[2018-03-21] MEDS: ASPIRIN PO SCH (10:54)
[2018-03-21] MEDS: PLAVIX PO SCH (10:58)
--- NOTE | 2018-03-21 11:19 | Progress Note ---
Assessment and Plan Acute hypoxic respiratory failure Acute systolic heart failure Chronic obstructive pulmonary disease Dilated Nonischemic Cardiomyopathy EF 20-25% by echo 03/2017 Hypertension Diabetes Obese NSTEMI R/LHC: reports a predominately nonischemic cardiomyopathy. There was a chronic total occlusion of the RCA and non-occlusive disease of the ramus intermedius artery, ejection fraction 20% recommended for medical therapy. There was a mild to moderate right and left heart filling pressures with mild pulmonary hypertension. Continue medical therapy for coronary artery disease and nonischemic cardiomyopathy. Subjective Date of service: 03/21/18 Interval history: Patient has no complaints. Reports her breathing is better. Objective Vital Signs Temp Pulse Pulse Resp BP Pulse Ox 03/21/18 08:10 98.0 F 67 20 123/66 98 03/21/18 00:30 98.1 F 03/21/18 00:02 63 128/62 98 03/20/18 22:50 79 110/64 03/20/18 19:41 98.1 F 79 110/64 98 03/20/18 18:01 78 148/89 03/20/18 17:56 78 148/89 03/20/18 16:30 100 03/20/18 16:00 70 18 100 03/20/18 11:30 100 - Physical Examination General: No Apparent Distress HEENT: Positive: PERRL Cardiac: Positive: Reg Rate and Rhythm Neuro: Positive: Grossly Intact - Labs and Meds Comprehensive Metabolic Panel 03/21/18 Range/Units 07:02 Sodium 144 (137-145) mmol/L Potassium 3.8 (3.6-5.0) mmol/L Chloride 106.9 (98-107) mmol/L Carbon Dioxide 24 (22-30) mmol/L BUN 20 H (7-17) mg/dL Creatinine 0.8 (0.7-1.2) mg/dL Glucose 76 (65-100) mg/dL Calcium 8.8 (8.4-10.2) mg/dL
--- NOTE | 2018-03-21 16:20 | Progress Note ---
Assessment and Plan Acute respiratory failure with hypoxia, resolded - continue oxygen, weaned off bipap Acute on chronic CHF exacerbation, systolic dysfunction; - Cardiology following - s/p cardiac cath on 03/20 - EF 20-25% by echo 03/2017 CATRACHO/vasomotor nephropathy - renal consulted, renal function improved after holding diuretics and gentle hydration - stopped iv fluid today COPD is highly doubted - previous pulmonary notes from dr steven reviewed, respiratory failure likely due to chf - taper steroids Hypertension -continue bp meds Diabetes type 2, with hyperglycemia -likely due to steroids; continue insulins Hospitalist Physical General.: Appears well, no distress, nontoxic HEENT: Moist mucous membranes, extraocular muscles intact, no lymphadenopathy Neck: supple Cardiac: S1-S2 heard Lungs: Diminished air entry in bases Abdomen: soft , nontender, nondistended, bowel sounds positive Extremities:2+ bipedal edema, with chronic skin changes likely from chronic swelling; edema is reduced Skin: no rash or lesions Neurologic: no gross focal deficits Psych: appropriate behavior, appropriate mood, corporative, judgment intact Subjective Date of service: 03/21/18 Interval history: Pt seen and examined c/o generalized weakness Objective - Constitutional Vitals: Vital Signs - 12hr 03/21/18 08:10 Temperature 98.0 F Pulse Rate 67 Respiratory 20 Rate Blood Pressure 123/66 O2 Sat by Pulse 98 Oximetry - Labs CBC & Chem 7: 03/20/18 05:24 03/22/18 06:25 Labs: Abnormal lab results 03/20/18 03/20/18 03/21/18 Range/Units 15:42 21:21 07:02 BUN 20 H (7-17) mg/dL POC Glucose 252 H 340 H (70-105) 03/21/18 Range/Units 08:21 BUN (7-17) mg/dL POC Glucose 116 H (70-105)
[2018-03-22] MEDS: NACL 0.9% 1000 ML 1,000 ML IV SCH (06:01)
[2018-03-22 07:04] LABS: BUN/Creatinine Ratio 20; Blood Urea Nitrogen 16 mg/dL (7-17); Hemolysis Index 16
[2018-03-22] MEDS: HumuLIN R SUB-Q SCH ×4 (08:34→22:36)
[2018-03-22] MEDS: PEPCID PO SCH ×2 (10:46→22:34)
[2018-03-22] MEDS: SODIUM CHLORIDE FLUSH SYRINGE 10 ML IV SCH ×2 (10:47→22:34)
[2018-03-22] MEDS: ASPIRIN PO SCH (10:47)
[2018-03-22] MEDS: PLAVIX PO SCH (10:47)
[2018-03-22] MEDS: LOVENOX SUB-Q SCH (10:47)
[2018-03-22] MEDS: IMDUR PO SCH (10:47)
[2018-03-22] MEDS: ZESTRIL PO SCH (10:47)
[2018-03-22] MEDS: COREG PO SCH ×2 (10:47→22:35)
--- NOTE | 2018-03-22 13:43 | Progress Note ---
Assessment and Plan Acute hypoxic respiratory failure Acute systolic heart failure Chronic obstructive pulmonary disease Dilated Nonischemic Cardiomyopathy EF 20-25% by echo 03/2017 Hypertension Diabetes Obese NSTEMI R/LHC: reports a predominately nonischemic cardiomyopathy. There was a chronic total occlusion of the RCA and non-occlusive disease of the ramus intermedius artery, ejection fraction 20% recommended for medical therapy. There was a mild to moderate right and left heart filling pressures with mild pulmonary hypertension. Continue medical therapy for coronary artery disease and nonischemic cardiomyopathy. Subjective Date of service: 03/22/18 Interval history: Patient has no complaints. Reports her breathing is better. Objective Vital Signs Temp Pulse Resp BP Pulse Ox 03/22/18 10:00 91 H 03/22/18 04:02 97.9 F 77 18 147/73 96 03/21/18 23:32 98.1 F 82 18 152/71 98 03/21/18 23:26 76 148/72 03/21/18 20:35 97.9 F 76 20 148/72 100 03/21/18 16:36 98.2 F 72 20 134/51 95 - Physical Examination General: No Apparent Distress HEENT: Positive: PERRL Cardiac: Positive: Reg Rate and Rhythm Neuro: Positive: Grossly Intact - Labs and Meds Comprehensive Metabolic Panel 03/22/18 Range/Units 06:25 Sodium 144 (137-145) mmol/L Potassium 4.0 (3.6-5.0) mmol/L Chloride 107.5 H (98-107) mmol/L Carbon Dioxide 28 (22-30) mmol/L BUN 16 (7-17) mg/dL Creatinine 0.8 (0.7-1.2) mg/dL Calcium 9.0 (8.4-10.2) mg/dL
--- NOTE | 2018-03-22 16:30 | Progress Note ---
Assessment and Plan Acute respiratory failure with hypoxia, resolded - continue oxygen, weaned off bipap Acute on chronic CHF exacerbation, systolic dysfunction; - Cardiology following - s/p cardiac cath on 03/20 - EF 20-25% by echo 03/2017 - restarted on diuretics today CATRACHO/vasomotor nephropathy - renal consulted, renal function improved after holding diuretics and gentle hydration - stopped iv fluid today COPD is highly doubted - previous pulmonary notes from dr steven reviewed, respiratory failure likely due to chf - taper steroids Hypertension -continue bp meds Diabetes type 2, with hyperglycemia -likely due to steroids; continue insulins Hospitalist Physical General.: Appears well, no distress, nontoxic HEENT: Moist mucous membranes, extraocular muscles intact, no lymphadenopathy Neck: supple Cardiac: S1-S2 heard Lungs: Diminished air entry in bases Abdomen: soft , nontender, nondistended, bowel sounds positive Extremities:2+ bipedal edema, with chronic skin changes likely from chronic swelling; edema is reduced Skin: no rash or lesions Neurologic: no gross focal deficits Psych: appropriate behavior, appropriate mood, corporative, judgment intact Subjective Date of service: 03/22/18 Interval history: Pt seen and examined c/o generalized weakness PT recommended BUD Objective - Constitutional Vitals: Vital Signs - 12hr 03/22/18 10:00 Pulse Rate 91 H - Labs CBC & Chem 7: 03/20/18 05:24 03/22/18 06:25 Labs: Abnormal lab results 03/21/18 03/21/18 03/21/18 Range/Units 12:26 16:45 21:45 Chloride (98-107) mmol/L POC Glucose 232 H 330 H 284 H (70-105) 03/22/18 03/22/18 Range/Units 06:25 12:13 Chloride 107.5 H (98-107) mmol/L POC Glucose 217 H (70-105)
[2018-03-23] MEDS: LASIX PO SCH ×2 (06:02→18:19)
[2018-03-23 06:21] LABS: BUN/Creatinine Ratio 20; Blood Urea Nitrogen 16 mg/dL (7-17); Calcium 8.7 mg/dL (8.4-10.2); Hemolysis Index 32
[2018-03-23] MEDS: COREG PO SCH ×2 (09:41→21:42)
[2018-03-23] MEDS: PLAVIX PO SCH (09:42)
[2018-03-23] MEDS: PEPCID PO SCH ×2 (09:42→21:42)
[2018-03-23] MEDS: LOVENOX SUB-Q SCH (09:42)
[2018-03-23] MEDS: ASPIRIN PO SCH (09:42)
[2018-03-23] MEDS: SODIUM CHLORIDE FLUSH SYRINGE 10 ML IV SCH (09:43)
[2018-03-23] MEDS: HumuLIN R SUB-Q SCH ×3 (09:43→18:18)
[2018-03-23] MEDS: ZESTRIL PO SCH (10:00)
[2018-03-23] MEDS: IMDUR PO SCH (10:00)
--- NOTE | 2018-03-23 15:43 | XRay Report ---
Left foot 3 views: History: Trauma. Left foot pain. Findings: Generalized osteopenia. No definite evidence of acute fracture. Deformity of the proximal phalanx of fifth toe is probably related to old injury. No periosteal reaction or lytic lesion. Impression: No definite evidence of acute fracture. Findings as detailed above. Incidentally there is severe arthritic changes in the ankle joint.
--- NOTE | 2018-03-23 15:50 | Progress Note ---
Assessment and Plan Acute respiratory failure with hypoxia, resolded - continue oxygen, weaned off bipap Acute on chronic CHF exacerbation, systolic dysfunction; - Cardiology following - s/p cardiac cath on 03/20/2018 showed a predominately nonischemic cardiomyopathy. 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 - EF 20-25% by echo 03/2017 - restarted on diuretics today CATRACHO/vasomotor nephropathy - renal consulted, renal function improved after holding diuretics and gentle hydration - stopped iv fluid today COPD is highly doubted - previous pulmonary notes from dr steven reviewed, respiratory failure likely due to chf - taper steroids Hypertension -continue bp meds Diabetes type 2, with hyperglycemia -likely due to steroids; continue insulins left great toe pain - will obtain xry Hospitalist Physical General.: Appears well, no distress, nontoxic HEENT: Moist mucous membranes, extraocular muscles intact, no lymphadenopathy Neck: supple Cardiac: S1-S2 heard Lungs: Diminished air entry in bases Abdomen: soft , nontender, nondistended, bowel sounds positive Extremities:2+ bipedal edema, with chronic skin changes likely from chronic swelling; edema is reduced Skin: no rash or lesions Neurologic: no gross focal deficits Psych: appropriate behavior, appropriate mood, corporative, judgment intact Subjective Date of service: 03/23/18 Interval history: Pt seen and examined c/o generalized weakness PT recommended BUD C/o left big toe pain Objective - Constitutional Vitals: Vital Signs - 12hr 03/23/18 03/23/18 03/23/18 04:23 08:05 09:41 Temperature 98.3 F 98.2 F Pulse Rate 74 76 76 Respiratory 18 20 Rate Blood Pressure 160/88 182/102 182/102 O2 Sat by Pulse 98 93 Oximetry 03/23/18 03/23/18 10:00 11:46 Temperature 98.4 F Pulse Rate 72 Respiratory 20 20 Rate Blood Pressure 145/69 O2 Sat by Pulse 98 100 Oximetry - Labs CBC & Chem 7: 03/20/18 05:24 03/24/18 07:13 Labs: Abnormal lab results 03/22/18 03/22/18 03/23/18 Range/Units 17:29 21:55 05:19 Glucose 240 H (65-100) mg/dL POC Glucose 68 L 209 H (70-105) 03/23/18 03/23/18 Range/Units 06:50 11:57 Glucose (65-100) mg/dL POC Glucose 274 H 234 H (70-105)
[2018-03-23] MEDS ORDERED: MORPHINE IV PRN (17:57)
[2018-03-23] MEDS: PERCOCET 5/325 PO PRN (21:42)
[2018-03-24] MEDS: HumuLIN R SUB-Q SCH ×2 (00:40→08:00)
[2018-03-24] MEDS: SODIUM CHLORIDE FLUSH SYRINGE 10 ML IV SCH ×2 (00:41→11:11)
[2018-03-24] MEDS: PERCOCET 5/325 PO PRN (04:40)
[2018-03-24] MEDS: LASIX PO SCH (05:55)
[2018-03-24 08:19] LABS: BUN/Creatinine Ratio 16; Blood Urea Nitrogen 14 mg/dL (7-17); Calcium 8.9 mg/dL (8.4-10.2); Hemolysis Index 37
[2018-03-24] MEDS: IMDUR PO SCH (11:10)
[2018-03-24] MEDS: ASPIRIN PO SCH (11:10)
[2018-03-24] MEDS: LOVENOX SUB-Q SCH (11:10)
[2018-03-24] MEDS: PEPCID PO SCH (11:10)
[2018-03-24] MEDS: PLAVIX PO SCH (11:11)
[2018-03-24] MEDS: COREG PO SCH (11:11)
[2018-03-24] MEDS: ZESTRIL PO SCH (11:11)
--- NOTE | 2018-03-24 13:47 | Discharge Summary ---
Providers - Providers Date of Admission: 03/14/18 23:30 Date of discharge: 03/24/18 Attending physician: PRETTY RICARDO 03/17/18 09:49 Consult to Case Management [CONS] Routine Services Needed at Discharge: Other Notified:: case management 03/17/18 16:02 Physical Therapy Evaluation and Treat [CONS] Routine Comment: Reason For Exam: weakness 03/23/18 15:01 Consult to Wound/ET Nurse [CONS] Routine Reason For Exam: wound eval Primary care physician: KENDRA CHO Hospitalization Condition: Fair Hospital course: 67-year-old woman with a history of hypertension, diabetes, CHF, comes emergency room with complaints of shortness of breath, PND, orthopnea and increasing lower extremity edema. She was placed on BiPAP in the emergency room Discharge diagnosis and management: Acute respiratory failure with hypoxia, resolded - continue oxygen, weaned off bipap Acute on chronic CHF exacerbation, systolic dysfunction; - Cardiology following - s/p cardiac cath on 03/20/2018 showed a predominately nonischemic cardiomyopathy. 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 - EF 20-25% by echo 03/2017 - restarted on diuretics NSTEMI with CAD -- s/p cardiac cath on 03/20/2018 showed a predominately nonischemic cardiomyopathy. 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 CATRACHO/vasomotor nephropathy - renal consulted, renal function improved after holding diuretics and gentle hydration COPD is highly doubted - previous pulmonary notes from dr steven reviewed, respiratory failure likely due to chf - taper steroids Hypertension -continue bp meds Diabetes type 2, with hyperglycemia -likely due to steroids; continue insulins left great toe pain due to traumatic toe nail - no acute finding on xry, wound care recommended local care Hospitalist Physical General.: Appears well, no distress, nontoxic HEENT: Moist mucous membranes, extraocular muscles intact, no lymphadenopathy Neck: supple Cardiac: S1-S2 heard Lungs: Diminished air entry in bases Abdomen: soft , nontender, nondistended, bowel sounds positive Extremities:2+ bipedal edema, with chronic skin changes likely from chronic swelling; edema is reduced Skin: no rash or lesions Neurologic: no gross focal deficits Psych: appropriate behavior, appropriate mood, corporative, judgment intact Disposition: [id number] Time spent for discharge: 34 minutes Core Measure Documentation - Palliative Care Palliative Care/ Comfort Measures: Not Applicable - Core Measures Any of the following diagnoses?: none Exam - Constitutional Vitals: Temp Pulse Resp BP Pulse Ox 98.9 F 64 18 158/85 98 03/24/18 05:23 03/24/18 11:11 03/24/18 05:23 03/24/18 11:11 03/24/18 05:23 Plan Activity: advance as tolerated Weight Bearing Status: Non-Weight Bearing Diet: low fat, low salt, diabetic Special Instructions: restrict fluid intake to (2L) Follow up with: KENDRA CHO MD [Primary Care Provider] - 3-5 Days Prescriptions: oxyCODONE /ACETAMINOPHEN [Percocet 5/325 mg] 1 tab PO Q4H PRN #10 tablet PRN Reason: Pain, Moderate (4-6)
[2018-03-24 16:36] VITALS: BP 146/74
== END 2018-03-24 16:36 | DRG 280 ==
LOC: ED 10:44 → 4A 23:30
PROVIDERS: ADMIT Internal Medicine; ATTEND Internal Medicine
PROC: 5A09357 Assistance with Respiratory Ventilation, Less than 24 Consecutive Hours, Continuous Positive Airway Pressure (ICD-10-PCS; 2018-03-14)
PROC: 4A033R1 Measurement of Arterial Saturation, Peripheral, Percutaneous Approach (ICD-10-PCS; 2018-03-15)
PROC: 4A023N8 Measurement of Cardiac Sampling and Pressure, Bilateral, Percutaneous Approach (ICD-10-PCS; principal; 2018-03-20)
PROC: B2110ZZ Fluoroscopy of Multiple Coronary Arteries using High Osmolar Contrast (ICD-10-PCS; 2018-03-20)
PROC: B2151ZZ Fluoroscopy of Left Heart using Low Osmolar Contrast (ICD-10-PCS; 2018-03-20)
DX: I21.4 Non-ST elevation (NSTEMI) myocardial infarction (principal); J96.01 Acute respiratory failure with hypoxia; N17.0 Acute kidney failure with tubular necrosis; I50.43 Acute on chronic combined systolic (congestive) and diastolic (congestive) heart failure; Z68.41 Body mass index [BMI] 40.0-44.9, adult; I42.0 Dilated cardiomyopathy; I11.0 Hypertensive heart disease with heart failure; M19.90 Unspecified osteoarthritis, unspecified site; J44.9 Chronic obstructive pulmonary disease, unspecified; G89.29 Other chronic pain; M54.9 Dorsalgia, unspecified; F17.210 Nicotine dependence, cigarettes, uncomplicated; E66.9 Obesity, unspecified; I25.10 Atherosclerotic heart disease of native coronary artery without angina pectoris; I27.20 Pulmonary hypertension, unspecified; E11.65 Type 2 diabetes mellitus with hyperglycemia; T38.0X5A Adverse effect of glucocorticoids and synthetic analogues, initial encounter; M79.675 Pain in left toe(s); W18.30XA Fall on same level, unspecified, initial encounter; Y93.89 Activity, other specified; Y92.049 Unspecified place in boarding-house as the place of occurrence of the external cause; Y99.8 Other external cause status; Z98.51 Tubal ligation status; Z79.4 Long term (current) use of insulin
CPT/HCPCS: 36415; 36600; 71045; 80048; 80053; 80061; 82550; 82553; 82803; 82962; 83036; 83880; 84484; 85007; 85025; 85027; 85610; 85730; 93005; 93010; 93460; 93970; 94644; 94660; 94760; 99285; 99406; A6250; A9270-GY; C1760; C1894; G8978-GP; G8979-GP; J0360; J1644; J1650; J1815; J1940; J2250; J2270; J2920; J3010; J3480; J7030; J7040; J7050; Q9967

== ENCOUNTER 2019-01-06 21:12 | Emergency (ER) | payer MEDICARE ==
--- NOTE | 2019-01-06 21:46 | Emergency Department Report ---
ED CPR HPI - General Chief Complaint: Cardiac Arrest/CPR Stated Complaint: CARDIAC ARREST Time Seen by Provider: 01/06/19 21:28 Source: EMS Mode of arrival: Stretcher Limitations: No Limitations - History of Present Illness Initial Comments: 68-year-old female with multiple medical problems, and hospice care, presents to ED in cardiac arrest. EMS states they responded to a call for chest pain. When they arrived they were informed that the patient had stopped breathing. Patient was placed on the monitor and found to be in asystole. ACLS was initiated. Patient was intubated as well. Patient received epi 4, sodium bicarbonate 1, D50 for Accu-Chek of 61, and Narcan. The patient remained in asystole while at EMS. Total time with EMS approximately 35 minutes. MD Complaint: stopped breathing Place: home Bystander CPR Performed: No Shock Advised: No Initial Findings in the Field: unresponsive, no respirations, no pulse, other rhythm (asystole) ROSC in the Field: No Associated Symptoms: chest pain Treatments Prior to Arrival: intubation, epinephrine mgs # (4), sodium bicarbonate, glucose, other (narcan) - Related Data Home Medications Medication Instructions Recorded Confirmed Last Taken Furosemide [Lasix TAB] 20 mg PO BID 09/22/18 09/22/18 Unknown Insulin NPH/Regular [NovoLIN 70/30] 50 unit SUB-Q BIDDIAB 09/22/18 09/22/18 Unknown Previous Rx's Medication Instructions Recorded Last Taken Type Clopidogrel [Plavix] 75 mg PO QDAY #30 tablet 08/24/17 03/14/18 Rx Aspirin [Aspirin TAB] 325 mg PO QDAY tablet 03/24/18 Unknown Rx AtorvaSTATin [Lipitor] 20 mg PO QHS tablet 03/24/18 Unknown Rx Lisinopril [Zestril TAB] 10 mg PO DAILY tablet 03/24/18 Unknown Rx oxyCODONE /ACETAMINOPHEN [Percocet 1 tab PO Q8H PRN #10 tablet 09/23/18 Unknown Rx 5/325 mg] Allergies Allergy/AdvReac Type Severity Reaction Status Date / Time No Known Allergies Allergy Verified 08/22/17 06:10 ED Review of Systems ROS: Stated complaint: CARDIAC ARREST Other details as noted in HPI Comment: Unobtainable due to pts medical conditions (cardiac arrest) ED Past Medical Hx - Past Medical History Hx Hypertension: Yes Hx Congestive Heart Failure: Yes Hx Diabetes: Yes Hx Arthritis: Yes Hx Asthma: Yes Hx COPD: Yes Hx HIV: No Additional medical history: chronic back pain - Surgical History Additional Surgical History: Right foot surgery, bilateral tubal ligation - Social History Smoking Status: Never Smoker - Medications Home Medications: Home Medications Medication Instructions Recorded Confirmed Last Taken Type Clopidogrel [Plavix] 75 mg PO QDAY #30 tablet 08/24/17 09/22/18 03/14/18 Rx Aspirin [Aspirin TAB] 325 mg PO QDAY tablet 03/24/18 09/22/18 Unknown Rx AtorvaSTATin [Lipitor] 20 mg PO QHS tablet 03/24/18 09/22/18 Unknown Rx Lisinopril [Zestril TAB] 10 mg PO DAILY tablet 03/24/18 09/22/18 Unknown Rx Furosemide [Lasix TAB] 20 mg PO BID 09/22/18 09/22/18 Unknown History Insulin NPH/Regular [NovoLIN 70/30] 50 unit SUB-Q BIDDIAB 09/22/18 09/22/18 Unknown History oxyCODONE /ACETAMINOPHEN [Percocet 1 tab PO Q8H PRN #10 tablet 09/23/18 09/22/18 Unknown Rx 5/325 mg] ED Physical Exam - General Limitations: No Limitations General appearance: obese - Head Head exam: Present: atraumatic, normocephalic - Eye Pupils: Present: other (fixed) - ENT ENT exam: Present: other (ET tube in place) - Neck Neck exam: Present: normal inspection - Respiratory Respiratory exam: Present: rales, other (no spontaneous breaths) - Cardiovascular Cardiovascular Exam: Present: other (no palpable pulse) - GI/Abdominal GI/Abdominal exam: Present: soft. Absent: distended - Extremities Exam Extremities exam: Present: other (dressings in place on lower extremities) - Neurological Exam Neurological exam: Present: other (GCS=3) - Skin Skin exam: Present: other (sacral decubitus ulcers present) ED Medical Decision Making - Medical Decision Making 68-year-old female presents to ED in cardiac arrest. The patient had a host of medical problems, and was currently in hospice care. Hospice nurse actually visited patient prior to EMS being called. The patient had EMS care for approximately 35 minutes with continued arrest. Upon transport to our ED, patient remained in asystole. Code was run according to ACLS guidelines, however, we were unable to obtain return of spontaneous circulation. Time of was called at 21:19. See nurse's notes for details. - Differential Diagnosis arrythmia, PE, pulm edema, CVA Critical Care Time: Yes Critical care time in (mins) excluding proc time.: 30 Critical care attestation.: If time is entered above; I have spent that time in minutes in the direct care of this critically ill patient, excluding procedure time. Critical Care Time: 30 minutes ED Disposition Clinical Impression: Cardiac arrest Disposition: DC-20 Is pt being admited?: No Condition: Stable Referrals: PRIMARY CARE, [Primary Care Provider] - 3-5 Days Time of Disposition: 22:01
[2019-01-06] MEDS ORDERED: ADRENALIN ONE (23:00)
== END 2019-01-07 01:36 ==
LOC: ED 21:12
DX: I46.9 Cardiac arrest, cause unspecified (principal)
CPT/HCPCS: 99285; J0171